=== PATIENT | male | born 1945 | race Caucasian/White ===

== ENCOUNTER 2017-05-11 18:21 | Emergency (ER) | payer OTHER ==
[2017-05-11 18:36] VITALS: BP 177/93; BMI 33.9
--- NOTE | 2017-05-11 19:42 | DR.UPM ---
HPI - Time Seen Time seen: 20:39 - Complaint Chief Complaint Doctors Comments: Patient complains of lower left quadrant pain with nausea and vomiting for the past six hours. States he has been passing blood in his urine and having pain when he urinates that is getting worst. States he had several kidney stones before and they had to send him to [place] to have it removed and to another hospital with the same problem. States goes to the [facility] and does not have a local doctor. He denies chest pain or SOB, fever or chills. Patient denies any recent tauma. States he has not taken anything about pain. - Reviewed Nurses Notes Reviewed: Yes - Source History Provided: Patient - Mode of Arrival Mode of Arrival: Ambulatory - Duration Duration: Constant How lon Duration: Hours Has not urinated for: 30 Min/Hrs: Minutes - Context Onset: Spontaneous Urinary Symptoms: Dysuria, Hematuria History of: Kidney Stone - Severity Pain: Severe Inability to Void: None - Location Pain Location: Left, Flank - Quality Penile Discharge: Clear - Modifying Factors Medications: None - Associated Signs and Symptoms Associated Signs and Symptoms: Nausea, Vomiting, Abdominal Pain, Flank Pain <ARMAND OLMOS - Last Filed: 05/11/17 23:11> - PCP Primary Care Physician: nv - Complaint Chief Complaint:: Patient c/o hematuria with left flank pain. Patient has a history of kidney stones - Source History Provided: Patient - Mode of Arrival Mode of Arrival: Ambulatory - Timing Onset of Chief Complaint: 05/11/17 <JUANY HDZ - Last Filed: 05/15/17 04:50> PMH - PMH Past Medical History: Yes Past Medical History: COPD, Diabetes, Dyslipidemia, Hypertension, NV Past Medical History Comment: kidney stones Past Surgical History: Yes Surgical History: CABG/Valve Surgery - Family History History of Family Medical Conditions: Yes Family Medical History: Diabetes Mellitus, Cancer, NV, Hypertension - Social History Does patient currently use any type of tobacco product: No Have you used tobacco products in the last 12 months: No Type of Tobacco Use: Cigarettes Does any household member use tobacco: No Alcohol Use: None Do you use any recreational Drugs:: No Lives With: Family Lives Where: Home - infectious screening In the last 2 months have you had wt loss of >10#?: NO Have you had fever, night sweats or hemotysis?: No Have you traveled outside the country in the last 6 months?: No Isolation: Standard <JUANY HDZ - Last Filed: 05/15/17 04:50> ROS - Review of Systems Constitutional: No Symptoms Reported. negative: See HPI, Chills, Diaphoresis, Fever, Malaise, Weakness, Irritable, Fatigue, Loss of Appetite, Other Eyes: No Symptoms Reported ENTM: No Symptoms Reported Respiratoy: No Symptoms Reported Cardiovascular: No Symptoms Reported. negative: See HPI, Chest Pain, Edema, Palpitations, Syncope, Cyanosis, Skin Mottling, Other Gastrointestinal/Abdominal: No Symptoms Reported, Abdominal Pain, Nausea, Vomiting Genitourinary: No Symptoms Reported, Dysuria, Hematuria. negative: See HPI, Discharge, Frequency, Pain, Bleeding, Other Neurological: No Symptoms Reported Musculoskeletal: No Symptoms Reported Integumentary: No Symptoms Reported Hematologic/Lymphatic: No Symptoms Reported. negative: See HPI, Anemia, Blood Clots, Easy Bleeding, Easy Bruising, Swollen Glands, Lymphadenopathy, Other Endocrine: No Symptoms Reported. negative: See HPI, Excessive Sweating, Flushing, Intolerance to Cold, Intolerance to Heat, Increased Hunger, Increased Thirst, Increased Urine, Unexplained Weight Gain, Unexplained Weight Loss, Failure to Thrive, Decreased Appetite, Other Psychiatric: No Symptoms Reported. negative: See HPI, Anxiety, Depression, Hallucinations, Excessive crying, Suicidal, Other <NICKOLASARMAND - Last Filed: 05/11/17 23:11> PE - General Limitations: No Limitations General Appearance: Alert, In Distress (moderate) - Head Head Exam: Normal Inspection, Atraumatic, Normocephalic - Eyes Eye exam: Normal Appearance, PERRL, EOMI. negative: Scleral Icterus, Conjunctival Injection, Nystagmus, Miosis, Mydrasis, Periorbital Swelling, Periorbital Tenderness, Other - ENT ENT Exam: Normal Exam, Normal Oropharynx, Normal External Ear Exam, Mucous Membranes Moist, TM's Normal Bilaterally - Neck Neck Exam: Normal Inspection, Full ROM, Trachea Midline. negative: Tenderness, Meningismus, Lymphadenopathy, Thyromegaly, Other - Chest Chest Inspection: Normal Inspection, Symmetric Chest Wall Rise. negative: Tenderness, Rash, Abscess, Other - Respiratory Respiratory Exam: Normal Lung Sounds Bilat Respiratory Exam: Bilateral Clear to Auscultation - Cardiovascular Cardiovascular Exam: Regular Rate, Normal Rhythm, Normal Heart Sounds. negative : Bradycardia, Tachycardia, Irregular Rhythm, Systolic Murmur, Diastolic Murmur , Rubs, Gallop, Clicks, JVD, +S1, +S2, +S3, +S4, Other - Abdominal Exam Abdominal Exam: Normal Inspection, Normal Bowel Sounds, Soft, Tenderness, Guarding Abdominal Tenderness: LLQ, Suprapubic, Moderate - Rectal Rectal Exam: Deferred - Genitourinary Exam: Male: Deferred - Extremities Extremities Exam: Normal Inspection, Full ROM - Back Back Exam: Normal Inspection, Full ROM, (L) CVA Tenderness - Neurologic Neurological Exam: Alert, Oriented X3, CN II-XII Intact, Normal Gait, Reflexes Normal - Psychiatric Psychiatric Exam: Normal Affect, Normal Mood - Skin Skin Exam: Warm, Dry, Intact, Normal Color. negative: Rash, Cyanosis, Diaphoresis, Erythema, Pallor, Mottled, Other <ARMAND OLMOS - Last Filed: 05/11/17 23:11> - Vital Signs Vitals: Temperature 98.7 F Pulse Rate 74 Respiratory Rate 18 Blood Pressure 177/93 O2 Sat by Pulse Oximetry 94 ROR - Labs Reviewed Laboratory Results Reviewed?: Yes (all labs and xray results reviewed and discussed with patient and spouse) Result Diagrams: 05/11/17 20:45 05/11/17 20:45 - XRAY XRAY Interpreted by: Radiologist (CT abdomen and pelvis: [id number] left hydroureteronephrosis. Obstructin stone n the mid left ureter and nonobstructing stone in left lower pole. Diverticulosis ; vascular plaques.) <ARMAND OLMOS - Last Filed: 05/11/17 23:11> - Labs Reviewed Result Diagrams: 05/11/17 20:45 05/11/17 20:45 <JUANY HDZ - Last Filed: 05/15/17 04:50> - Labs Reviewed Laboratory: WBC 9.3 X10^3/uL (3.6-10.0) 05/11/17 20:45 RBC 5.29 X10^6/uL (4.7-6.0) 05/11/17 20:45 Hgb 15.1 g/dL (13.5-18.0) 05/11/17 20:45 Hct 44.8 % (42.0-54.0) 05/11/17 20:45 MCV 84.7 fL (80.0-100.0) 05/11/17 20:45 MCH 28.6 pg (27.0-34.0) 05/11/17 20:45 MCHC 33.8 g/dL (33.0-35.0) 05/11/17 20:45 RDW 14.3 % (11.6-16.5) 05/11/17 20:45 Plt Count 172 X10^3/uL (150.0-450.0) 05/11/17 20:45 MPV 8.7 fL (7.4-11.0) 05/11/17 20:45 Neut % 85.8 % (42.0-75.0) H 05/11/17 20:45 Lymph % 9.8 % (21.0-51.0) L 05/11/17 20:45 [place] % 3.3 % (0.0-13.0) 05/11/17 20:45 Eos % 0.5 % (0.9-2.9) L 05/11/17 20:45 Baso % 0.6 % (0.2-1.0) 05/11/17 20:45 Neut # 7.9 x10^3/uL (2.2-4.8) H 05/11/17 20:45 Lymph # 0.9 X10^3/uL (1.3-2.9) L 05/11/17 20:45 [place] # 0.3 x10^3/uL (0.3-0.8) 05/11/17 20:45 Eos # 0.0 x10^3/uL (0.0-0.2) 05/11/17 20:45 Baso # 0.1 X10^3/uL (0.0-0.1) 05/11/17 20:45 Absolute Nucleated RBC 0.0 /100WBC 05/11/17 20:45 Sodium 140 mmol/L (136-145) 05/11/17 20:45 Corrected Sodium 142 mmol/L (136-145) 05/11/17 20:45 Potassium 4.4 mmol/L (3.5-5.1) 05/11/17 20:45 Chloride 105 mmol/L (98-107) 05/11/17 20:45 Carbon Dioxide 24.7 mmol/L (21-32) 05/11/17 20:45 BUN 18 mg/dL (7-18) 05/11/17 20:45 Creatinine 1.28 mg/dL (0.70-1.30) 05/11/17 20:45 Est GFR (MDRD) Af Amer > 60 (>60) 05/11/17 20:45 Est GFR (MDRD) Non-Af 59 (>60) 05/11/17 20:45 Glucose 173 mg/dL (65-99) H 05/11/17 20:45 Calcium 8.7 mg/dL (8.5-10.1) 05/11/17 20:45 Corrected Calcium TNP 05/11/17 20:45 Total Bilirubin 0.40 mg/dL (0.2-1.0) 05/11/17 20:45 AST 16 Units/L (15-37) 05/11/17 20:45 ALT 29 Units/L (12-78) 05/11/17 20:45 Alkaline Phosphatase 91 Units/L (46-116) 05/11/17 20:45 Total Protein 7.0 g/dL (6.4-8.2) 05/11/17 20:45 Albumin 3.8 g/dL (3.4-5.0) 05/11/17 20:45 Globulin 3.2 g/dL (2.5-4.5) 05/11/17 20:45 Albumin/Globulin Ratio 1.2 Ratio (1.1-2.1) 05/11/17 20:45 Amylase 45 Units/L (25-115) 05/11/17 20:45 Lipase 101 Units/L (73-393) 05/11/17 20:45 Specimen Type Clean catch urine 05/11/17 19:57 Urine Color [place] (YELLOW) 05/11/17 19:57 Urine Appearance Cloudy (CLEAR) 05/11/17 19:57 Urine pH 7.0 (5.0 - 8.0) 05/11/17 19:57 Ur Specific [place] 1.010 (1.000-1.030) 05/11/17 19:57 Urine Protein 2+ (NEGATIVE) 05/11/17 19:57 Urine Glucose (UA) 2+ (NEGATIVE) 05/11/17 19:57 Urine Ketones Negative (NEGATIVE) 05/11/17 19:57 Urine Occult Blood 5+ (NEGATIVE) 05/11/17 19:57 Urine Nitrite Negative (NEGATIVE) 05/11/17 19:57 Urine Bilirubin Negative (NEGATIVE) 05/11/17 19:57 Urine Urobilinogen Normal (NORMAL) 05/11/17 19:57 Ur Leukocyte Esterase 1+ (NEGATIVE) 05/11/17 19:57 Urine RBC Tntc /HPF (NEGATIVE) 05/11/17 19:57 Urine WBC 0 - 3 /HPF (NEGATIVE) 05/11/17 19:57 Ur Squamous Epith Cells Rare /HPF (NEGATIVE) 05/11/17 19:57 Amorphous Sediment Trace /HPF (NEGATIVE) 05/11/17 19:57 Urine Bacteria Negative /HPF (NEGATIVE) 05/11/17 19:57 Ur Culture Indicated? No/not indicated 05/11/17 19:57 <ARMAND OLMOS - Last Filed: 05/11/17 23:11> <JUANY HDZ - Last Filed: 05/15/17 04:50> - Diagnosis Discharge Problem: Left nephrolithiasis, Hydroureteronephrosis Abdominal pain Qualifiers: Abdominal location: left lower quadrant Qualified Code(s): R10.32 - Left lower quadrant pain Diabetes mellitus Qualifiers: Diabetes mellitus type: type 2 - Discharge Plan Disposition: HOME, SELF-CARE Condition: Stable Prescriptions: Ketorolac Tromethamine [Toradol Tab] 10 mg PO Q8H PRN #12 tab PRN Reason: Pain Tamsulosin HCl [Flomax] 0.4 mg PO DAILY #14 cap - Follow ups/Referrals Follow ups/Referrals: NFD,None [Primary Care Provider] - 3 days SAIDA ARDON [CONSULTING PHYSICIAN] - 3 days Mathew Cordero [STAFF PHYSICIAN] - 3 days - Instructions Instructions: Renal Colic, Qwzz-el-Hotz, Kidney Stones, Swfs-qu-Fymh, Dietary Guidelines to Help Prevent Kidney Stones, Type 2 Diabetes Mellitus, Adult, Easy- to-Read
[2017-05-11 20:08] LABS: BILIRUBIN,URINE NEGATIVE (NEGATIVE); BLOOD/HEMOGLOBIN,URINE 5+ (NEGATIVE); GLUCOSE, URINE 2+ (NEGATIVE); KETONES,URINE NEGATIVE (NEGATIVE); LEUKOCYTE ESTERASE ,URINE 1+ (NEGATIVE); NITRITES,URINE NEGATIVE (NEGATIVE); PROTEIN,URINE 2+ (NEGATIVE); UROBILINOGEN,URINE NORMAL (NORMAL)
[2017-05-11 20:25] LABS: APPEARANCE,URINE CLOUDY (CLEAR); COLOR,URINE PINK (YELLOW); RBC,URINE TNTC /HPF (NEGATIVE)
[2017-05-11 20:26] LABS: AMORPHOUS SEDIMENT,UR TRACE /HPF (NEGATIVE); BACTERIA,URINE NEGATIVE /HPF (NEGATIVE); SQUAMOUS EPITHELIAL CELL,UR RARE /HPF (NEGATIVE)
[2017-05-11] MEDS ORDERED: TORADOL 30 MG VIAL IVP STA (20:38)
[2017-05-11] MEDS ORDERED: ZOFRAN INJ 4 MG VIAL IVP ONE (20:38)
[2017-05-11] MEDS ORDERED: ZOFRAN INJ 4 MG VIAL ONE (20:55)
[2017-05-11] MEDS ORDERED: TORADOL 30 MG VIAL ONE (20:55)
[2017-05-11 20:58] LABS: BASOPHILS # (AUTO) 0.1 X10^3/uL (0.0-0.1); BASOPHILS % (AUTO) 0.6 % (0.2-1.0); EOSINOPHILS % (AUTO) 0.5 % (0.9-2.9); HEMATOCRIT 44.8 % (42.0-54.0); HEMOGLOBIN 15.1 g/dL (13.5-18.0); LYMPHOCYTES # (AUTO) 0.9 X10^3/uL (1.3-2.9); LYMPHOCYTES % (AUTO) 9.8 % (21.0-51.0); MEAN CORPUSCULAR HEMOGLOBIN 28.6 pg (27.0-34.0); MEAN CORPUSCULAR HGB CONC 33.8 g/dL (33.0-35.0); MEAN CORPUSCULAR VOLUME 84.7 fL (80.0-100.0); MEAN PLATELET VOLUME 8.7 fL (7.4-11.0); MONOCYTES # (AUTO) 0.3 x10^3/uL (0.3-0.8); MONOCYTES % (AUTO) 3.3 % (0.0-13.0); NEUTROPHILS # (AUTO) 7.9 x10^3/uL (2.2-4.8); NEUTROPHILS % (AUTO) 85.8 % (42.0-75.0); PLATELET COUNT 172 X10^3/uL (150.0-450.0); RED BLOOD COUNT 5.29 X10^6/uL (4.7-6.0); RED CELL DISTRIBUTION WIDTH 14.3 % (11.6-16.5); WHITE BLOOD COUNT 9.3 X10^3/uL (3.6-10.0)
[2017-05-11 21:06] LABS: ALANINE AMINOTRANSFERASE 29 Units/L (12-78); ALBUMIN 3.8 g/dL (3.4-5.0); ALKALINE PHOSPHATASE 91 Units/L (46-116); AMYLASE 45 Units/L (25-115); ASPARTATE AMINO TRANSFERASE 16 Units/L (15-37); BLOOD UREA NITROGEN 18 mg/dL (7-18); CALCIUM 8.7 mg/dL (8.5-10.1); CARBON DIOXIDE 24.7 mmol/L (21-32); CHLORIDE 105 mmol/L (98-107); COR NA(FOR HYPERGLY) 142 mmol/L (136-145); CREATININE 1.28 mg/dL (0.70-1.30); LIPASE 101 Units/L (73-393); SODIUM 140 mmol/L (136-145); eGFR BLACK RACES > 60 (>60); eGFR NON BLACK RACES 59 (>60)
--- NOTE | 2017-05-11 21:18 | CT ---
CT abdomen and pelvis without contrast Indication: Hematuria and left flank pain Technique: Helical images through the abdomen and pelvis without contrast. Coronal and sagittal refor mats provided. Comparison: No prior studies available. Findings: Limited images through the lower chest demonstrates no acute abnormality. Review of bone wi ndows shows no destructive osseous lesion. 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 Abdomen: The liver, gallbladder, spleen, adrenal glands, pancreas, stomach and small bowel show no ac zuni abnormality. The appendix is normal. Noninflamed diverticula of the left colon noted. Vascular pl aque noted in the aorta and branch vessels. The right kidney is normal without hydroureteronephrosis. The left kidney shows nonobstructing 1-2 mL left lower pole stone. There is cwvj-aq-xbsgbwkd left hyd roureteronephrosis with obstructing stone in the left ureter at the mid ureter on axial image 54 vanessa uring 3 mm. Pelvis: The urinary bladder and rectum are normal. Fat containing right inguinal hernia noted. Hip ar throplasty hardware obscures detail in the pelvis. Prostate gland shows no gross abnormality with art ifact obscuring detail. Impression: 1. Asld-ov-drrpnzdz left hydroureteronephrosis. Obstructing stone in the mid left ureter and nonobstr ucting stone in the left lower pole. 2. Vascular plaque, diverticulosis and other findings as above. Reported By:
== END 2017-05-11 23:34 | disposition home or self-care (01) ==
LOC: ER 18:31
DX: N20.0 Calculus of kidney (principal); N13.39 Other hydronephrosis; R10.32 Left lower quadrant pain; K57.90 Diverticulosis of intestine, part unspecified, without perforation or abscess without bleeding
CPT/HCPCS: 36415; 74176; 80053; 81001; 82150; 83690; 85025; 96365; 96367; 96374; 96375; 99283; A4216; A4222; J1885; J2405

== ENCOUNTER 2021-10-10 10:36 | Observation (INO) ==
--- NOTE | 2021-10-10 10:54 | DR.ABDMALE ---
HPI Time seen Time Seen by Provider: 10/10/21 10:51 PCP Primary Care Physician: RAFI HPI comment HPI Comment: PATIENT IS 76YR OLD MALE IN ER [facility] WITH INTERMITTENT SHARP UPPER ABDOMINAL PAIN THAT IS INTERMITTENT. PAIN 8/10 AND RADIATES TO CRISTOPHER SIDES OF THE ABDOMEN. PATIENT IS NAUSEATED BUT NO VOMITING OR DIARRHEA. NO FEVER OR DYSURIA. STARTED 5 DAYS AGO. Complaint Chief Complaint Doctors Comments: UPPER ABDOMINAL PAIN AND DISTENSION TIMES 5 DAYS, PAIN OFF AND ON. Chief Complaint:: PT BROUGHT IN BY [facility] PT C/O WAS ABD PAIN AND SWELLING THAT HE NOTICED THAT STARTED ON THE October. PT STATES HE HAS A ANEURYSM FOR A YEAR NOW THAT THEY HAVE BEEN WATCHING. PT STATES THE PAIN COMES AND GOES AND IT IS AT THE TOP UPPER QUAD AND BOTH SIDES OF HIS ABD. COVID-19 Coronavirus risk:travel/contact w/high risk person: No Has patient experienced Coronavirus symptoms: No Reviewed Nurses Notes Review: Yes Mode of arrival Mode of Arrival: Stretcher Timing Onset of Chief Complaint: 10/05/21 Came on: Suddenly Duration Duration: Intermittent Duration: Days Location Location: RUQ, LUQ and Epigastric Severity Severity: Severe Quality Quality: Sharp Context Onset: Suddenly Modifying factors Worsening Factors: Movement Improving Factors: Lying Still Associated signs and symptoms Associated Signs and Symptoms: Nausea and Vaginal Bleeding Other history Other History: HTN, CAD, DM. PMH PMH Past Medical History: Yes Past Medical History: Anxiety, Coronary Artery Disease, Diabetes and Hype rtension Past Medical History Comment: ANEURYSM Past Surgical History: Yes Surgical History: CABG/Valve Surgery and Ortho Surgery Family History History of Family Medical Conditions: Yes Family Medical History: Diabetes Mellitus and Hypertension Social History Does patient currently use any type of tobacco product: No Have you used tobacco products in the last 12 months: No Type of Tobacco Use: None Does any household member use tobacco: No Alcohol Use: None Do you use any recreational Drugs:: No Lives With: Spouse Lives Where: Home Travel Risk Coronavirus risk:travel/contact w/high risk person: No Has patient experienced Coronavirus symptoms: No Infectious screening In the last 2 months have you had wt loss of >10#?: NO Have you had fever, night sweats or hemotysis?: No Have you traveled outside the country in the last 6 months?: No Isolation: Standard ROS Review of Systems Constitutional: See HPI, Weakness and Fatigue; negative Fever Eyes: No Symptoms Reported and See HPI ENTM: No Symptoms Reported and See HPI; negative Nose Discharge and Nose Congestion Respiratoy: No Symptoms Reported and See HPI; negative Moist Cough, Short of Breath and Wheezing Cardiovascular: No Symptoms Reported and See HPI; negative Chest Pain Gastrointestinal/Abdominal: See HPI, Abdominal Pain and Nausea; negative Diarrhea and Vomiting Genitourinary: No Symptoms Reported and See HPI; negative Dysuria and Hematuria Neurological: See HPI and Weakness; negative Headache and Dizziness Musculoskeletal: No Symptoms Reported and See HPI; negative Back Pain Integumentary: No Symptoms Reported Hematologic/Lymphatic: No Symptoms Reported and See HPI Endocrine: No Symptoms Reported Psychiatric: No Symptoms Reported and See HPI All Other Systems: Reviewed and Negative PE Vital Signs Vital Signs: Temp Pulse Resp BP BP Pulse Ox 10/10/21 11:36 140/83 10/10/21 10:39 98.0 F 77 20 186/90 98 01/04/20 19:31 130/72 General Limitations: No Limitations General Appearance: Alert and In No Apparent Distress Head Head Exam: Normal Inspection Eyes Eye exam: Normal Appearance; negative Scleral Icterus and Conjunctival Injection ENT ENT Exam: Normal Exam, Normal Oropharynx, Normal External Ear Exam and TM's Normal Bilaterally Neck Neck Exam: Normal Inspection and Trachea Midline; negative Tenderness Chest Chest Inspection: Normal Inspection and Symmetric Chest Wall Rise; negative Tenderness Respiratory Respiratory Exam: Normal Lung Sounds Bilat; negative Accessory Muscle Use, Chest Wall Tenderness and Respiratory Distress Respiratory Exam: Bilateral: Clear to Auscultation and Bilateral: Rhonchi Cardiovascular Cardiovascular Exam: Regular Rate, Normal Rhythm and Normal Heart Sounds; negative Systolic Murmur and Diastolic Murmur Abdominal Exam Abdominal Exam: Normal Bowel Sounds, Soft and Tenderness Abdominal Tenderness: RUQ, LUQ and Epigastrium Rectal Rectal Exam: Deferred Back Back Exam: Normal Inspection; negative (R) CVA Tenderness and (L) CVA Tenderness Extremeties Extremities Exam: Normal Inspection and Normal Capillary Refill Exam: Male: Deferred Neurologic Neurological Exam: Alert and Oriented X3; negative Motor Sensory Deficit Psychiatric Psychiatric Exam: Normal Affect and Normal Mood Skin Skin Exam: Warm, Dry, Intact and Normal Color MDM Additional Information Obtained From Additional information provided by: Old Records Differential Diagnosis Differential Diagnosis: Bowel Obstruction, Cholcystitis, Cholelethiasis, Constipation, Gastritus/PUD, Inflammatory BD, Pancreatitis, Urinary tract in fection and Urolithiasis COURSE Treatment Treatment: SEE ORDERS DONE WHILE PATIENT WAS IN ER. Consultation Consultation Comments: DISCUSSED PATIENT DR. MUÑOZ. HE WILL ADMIT PATIENT. Education/Counseling Education/Counseling: Patient Educated On: Diagnosis ROR Labs Reviewed Laboratory Results Reviewed?: Yes Result Diagrams: 10/13/21 04:10 10/13/21 04:10 Laboratory: WBC 4.3 X10^3/uL (3.6-10.0) 10/10/21 11:33 RBC 5.05 X10^6/uL (4.7-6.0) 10/10/21 11:33 Hgb 14.1 g/dL (13.5-18.0) 10/10/21 11:33 Hct 41.8 % (42.0-54.0) L 10/10/21 11:33 MCV 82.7 fL (80.0-100.0) 10/10/21 11:33 MCH 27.8 pg (27.0-34.0) 10/10/21 11:33 MCHC 33.6 g/dL (33.0-35.0) 10/10/21 11:33 RDW 16.3 % (11.6-16.5) 10/10/21 11:33 Plt Count 166 X10^3/uL (150.0-450.0) 10/10/21 11:33 MPV 6.8 fL (7.4-11.0) L 10/10/21 11:33 Neut % (Auto) 57.1 % (42.0-75.0) 10/10/21 11:33 Lymph % (Auto) 29.7 % (21.0-51.0) 10/10/21 11:33 [place] % (Auto) 8.3 % (0.0-13.0) 10/10/21 11:33 Eos % (Auto) 4.5 % (0.9-2.9) H 10/10/21 11:33 Baso % (Auto) 0.4 % (0.2-1.0) 10/10/21 11:33 Neut # (Auto) 2.5 x10^3/uL (2.2-4.8) 10/10/21 11:33 Lymph # (Auto) 1.3 X10^3/uL (1.3-2.9) 10/10/21 11:33 [place] # (Auto) 0.4 x10^3/uL (0.3-0.8) 10/10/21 11:33 Eos # (Auto) 0.2 x10^3/uL (0.0-0.2) 10/10/21 11:33 Baso # (Auto) 0.0 X10^3/uL (0.0-0.1) 10/10/21 11:33 Absolute Nucleated RBC 0.2 /100WBC 10/10/21 11:33 Sodium 140 mmol/L (136-145) 10/10/21 11:33 Corrected Sodium 141 mmol/L (136-145) 10/10/21 11:33 Potassium 4.4 mmol/L (3.5-5.1) 10/10/21 11:33 Chloride 104 mmol/L (98-107) 10/10/21 11:33 Carbon Dioxide 30.2 mmol/L (21-32) 10/10/21 11:33 BUN 16 mg/dL (7-18) 10/10/21 11:33 Creatinine 1.47 mg/dL (0.70-1.30) H 10/10/21 11:33 Est GFR (MDRD) Af Amer 60 (>60) 10/10/21 11:33 Est GFR (MDRD) Non-Af 50 (>60) L 10/10/21 11:33 Glucose 144 mg/dL (65-99) H 10/10/21 11:33 Calcium 9.1 mg/dL (8.5-10.1) 10/10/21 11:33 Corrected Calcium TNP 10/10/21 11:33 Total Bilirubin 0.70 mg/dL (0.2-1.0) 10/10/21 11:33 AST 18 Units/L (15-37) 10/10/21 11:33 ALT 19 Units/L (12-78) 10/10/21 11:33 Alkaline Phosphatase 81 Units/L (46-116) 10/10/21 11:33 Creatine Kinase 195 Units/L (39-308) 10/10/21 11:33 CK-MB (CK-2) 2.2 ng/mL (0-4.0) 10/10/21 11:33 CK/CKMB % Calc 1.1 % (<4) 10/10/21 11:33 Troponin I High Sens 9.7 ng/L (4.0-60.0) 10/10/21 11:33 Total Protein 6.9 g/dL (6.4-8.2) 10/10/21 11:33 Albumin 3.7 g/dL (3.4-5.0) 10/10/21 11:33 Globulin 3.2 g/dL (2.5-4.5) 10/10/21 11:33 Albumin/Globulin Ratio 1.2 Ratio (1.1-2.1) 10/10/21 11:33 Amylase 45 Units/L (25-115) 10/10/21 11:33 Lipase 62 Units/L (73-393) L 10/10/21 11:33 Specimen Type Random urine 10/10/21 12:13 Urine Color Yellow (YELLOW) 10/10/21 12:13 Urine Appearance Clear (CLEAR) 10/10/21 12:13 Urine pH 7.0 (5.0 - 8.0) 10/10/21 12:13 Ur Specific [place] 1.010 (1.000-1.030) 10/10/21 12:13 Urine Protein Negative (NEGATIVE) 10/10/21 12:13 Urine Glucose (UA) 4+ (NEGATIVE) 10/10/21 12:13 Urine Ketones Negative (NEGATIVE) 10/10/21 12:13 Urine Blood Negative (NEGATIVE) 10/10/21 12:13 Urine Nitrite Negative (NEGATIVE) 10/10/21 12:13 Urine Bilirubin Negative (NEGATIVE) 10/10/21 12:13 Urine Urobilinogen Normal (NORMAL) 10/10/21 12:13 Ur Leukocyte Esterase Negative (NEGATIVE) 10/10/21 12:13 XRAY XRAY Interpreted by: Radiologist (REP[PORT) and Self EKG Rate: 71 [place]: LAD Rhythm: NSR Block: 1 Hypertrophy: None ST: Old, Inf, Ant, Infarct and Nonsp Opioid Opioid Risk Tool Age (Naeem box if 16-45): No History of Preadolescent Sexual Abuse: No Total: 0 Total Score Risk Category: Low Risk Copyright: Fernando ASKEW predicting aberrant behaviors Diagnosis Discharge Problem: Pancreatic cyst Abdominal pain Qualifiers: Abdominal location: upper abdomen, unspecified Qualified Code(s): R10.10 - Upper abdominal pain, unspecified Instructions Instructions: Cellulitis, Adult Edema Flank Pain, Adult, Agbg-yw-[id number] Acute Pancreatitis, Zqyg-ix-Gtin Abdominal Pain, Adult, Nidk-ym-Mraz Pancreatitis Eating Plan Flank Pain, Adult Edema, Qjsr-[id number]-Eaqz Acute Pancreatitis Forms: Excuse From Work or School Precautions for COVID19 [facility] Social Distancing
[2021-10-10 11:42] LABS: BASOPHILS % (AUTO) 0.4 % (0.2-1.0); EOSINOPHILS # (AUTO) 0.2 x10^3/uL (0.0-0.2); EOSINOPHILS % (AUTO) 4.5 % (0.9-2.9); HEMATOCRIT 41.8 % (42.0-54.0); HEMOGLOBIN 14.1 g/dL (13.5-18.0); LYMPHOCYTES # (AUTO) 1.3 X10^3/uL (1.3-2.9); LYMPHOCYTES % (AUTO) 29.7 % (21.0-51.0); MEAN CORPUSCULAR HEMOGLOBIN 27.8 pg (27.0-34.0); MEAN CORPUSCULAR HGB CONC 33.6 g/dL (33.0-35.0); MEAN CORPUSCULAR VOLUME 82.7 fL (80.0-100.0); MEAN PLATELET VOLUME 6.8 fL (7.4-11.0); MONOCYTES # (AUTO) 0.4 x10^3/uL (0.3-0.8); MONOCYTES % (AUTO) 8.3 % (0.0-13.0); NEUTROPHILS # (AUTO) 2.5 x10^3/uL (2.2-4.8); NEUTROPHILS % (AUTO) 57.1 % (42.0-75.0); RED BLOOD COUNT 5.05 X10^6/uL (4.7-6.0); RED CELL DISTRIBUTION WIDTH 16.3 % (11.6-16.5); WHITE BLOOD COUNT 4.3 X10^3/uL (3.6-10.0)
[2021-10-10 11:53] LABS: BLOOD UREA NITROGEN 16 mg/dL (7-18); CALCIUM 9.1 mg/dL (8.5-10.1); CARBON DIOXIDE 30.2 mmol/L (21-32); CHLORIDE 104 mmol/L (98-107); COR NA(FOR HYPERGLY) 141 mmol/L (136-145); CREATININE 1.47 mg/dL (0.70-1.30); SODIUM 140 mmol/L (136-145); eGFR NON BLACK RACES 50 (>60)
[2021-10-10 12:10] LABS: AMYLASE 45 Units/L (25-115); CKMB % 1.1 % (<4); CREATINE KINASE 195 Units/L (39-308); CREATINE KINASE MB 2.2 ng/mL (0-4.0); LIPASE 62 Units/L (73-393)
[2021-10-10 12:32] LABS: BILIRUBIN,URINE NEGATIVE (NEGATIVE); BLOOD/HEMOGLOBIN,URINE NEGATIVE (NEGATIVE); GLUCOSE, URINE 4+ (NEGATIVE); KETONES,URINE NEGATIVE (NEGATIVE); LEUKOCYTE ESTERASE ,URINE NEGATIVE (NEGATIVE); NITRITES,URINE NEGATIVE (NEGATIVE); PROTEIN,URINE NEGATIVE (NEGATIVE); UROBILINOGEN,URINE NORMAL (NORMAL)
[2021-10-10 12:33] LABS: APPEARANCE,URINE CLEAR (CLEAR); COLOR,URINE YELLOW (YELLOW)
--- NOTE | 2021-10-10 12:58 | CT ---
HISTORYABDOMINAL PAIN,SWELLING, HX. AORTIC ANEURYSMSTUDYABDOMEN/PELVIS WITH CONCOMPARISONNone available.TECHNIQUEMultiple axial images of the abdomen and pelvis were obtained from the lung bases to the pubic symphysis after the administration of IV contrast. Dose reduction techniques including Automated Exposure Control (AEC) and adjustment of mA and kV were utilized.FINDINGSThere are few scattered less than 4 mm pulmonary nodules in the lung bases with mild scattered subsegmental atelectasis. The heart is normal in size. The liver, gallbladder, and adrenal glands have a benign noncontrast appearance. 8 mm fluid attenuation lesion inferior splenic pole image 45 series 6. This may represent a cyst and appears benign. There are multiple cystic pancreatic/peripancreatic lesions. For example of the dorsal margin of the pancreatic neck there is a 3.3 x 2.9 cm near fluid attenuation lesion image 27 series 4. The kidneys appear benign. Subcentimeter calcifications at bilateral renal pelves are favored to be vascular. Streak artifact limits evaluation the pelvis. Urinary bladder appears benign within limits the study. Prostate is not well visualized. Diverticulosis of the colon without evidence of diverticulitis. The appendix appears normal. Negative for bowel obstruction. Small fat containing right inguinal hernia. Moderately atherosclerotic normal caliber abdominal aorta. The portal vein is patent. 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 No pathologic adenopathy. No free air, free fluid or collection. There is grade 2 anterolisthesis of L5-S1 with a right-sided pars defect. There is mild retrolisthesis of L4-5. Severe L5-S1 degenerative disc disease. Mild scoliosis.IMPRESSIONMultiple cystic pancreatic/peripancreatic lesions. Recommend MRI with and without contrast with MR CP for further evaluation. Differential includes cystic pancreatic neoplasm (such as IPMN, serous cystadenoma or mucinous cystic neoplasm) versus pseudocysts in the setting of chronic pancreatitis.Grade 2 anterolisthesis of L5-S1 with severe degenerative disc disease.Moderately atherosclerotic normal caliber abdominal aorta.Electronically signed by: Wade Bergeron (October 10, 2021 12:56:29)
[2021-10-10] MEDS ORDERED: ZOFRAN INJ 4 MG VIAL IVP PRN (17:15)
[2021-10-10] MEDS: PEPCID 20 MG VIAL 20 MG in NS 50 ML IV 50 ML IV SCH ×2 (17:44→21:05)
[2021-10-10] MEDS: NS 1,000 ML IV 1,000 ML IV SCH (17:44)
[2021-10-10 20:10] LABS: BILIRUBIN,URINE NEGATIVE (NEGATIVE); BLOOD/HEMOGLOBIN,URINE NEGATIVE (NEGATIVE); GLUCOSE, URINE 4+ (NEGATIVE); KETONES,URINE NEGATIVE (NEGATIVE); LEUKOCYTE ESTERASE ,URINE NEGATIVE (NEGATIVE); NITRITES,URINE NEGATIVE (NEGATIVE); PROTEIN,URINE NEGATIVE (NEGATIVE); UROBILINOGEN,URINE NORMAL (NORMAL)
[2021-10-10 20:12] LABS: APPEARANCE,URINE CLEAR (CLEAR); COLOR,URINE PALE YELLOW (YELLOW)
[2021-10-10] MEDS ORDERED: DULOXETINE PO SCH (21:00)
[2021-10-10] MEDS ORDERED: MIRABEGRON 25 MG PO SCH (21:00)
[2021-10-10] MEDS: COREG TAB 12.5 MG PO SCH (21:01)
[2021-10-10] MEDS: LIPITOR TAB 20 MG PO SCH (21:02)
[2021-10-10] MEDS: DETROL LA 2 MG CAP EXT REL PO SCH (21:02)
[2021-10-10] MEDS: CYMBALTA PO SCH (21:02)
[2021-10-10] MEDS: PLETAL PO SCH (21:03)
[2021-10-10] MEDS: EMPAGLIFLOZIN 10 MG PO SCH (21:58)
[2021-10-11] MEDS: PEPCID 20 MG VIAL 20 MG in NS 50 ML IV 50 ML IV SCH ×3 (01:05→20:38)
[2021-10-11] MEDS: NS 1,000 ML IV 1,000 ML IV SCH ×3 (02:19→23:15)
[2021-10-11 05:18] LABS: BASOPHILS % (AUTO) 0.5 % (0.2-1.0); EOSINOPHILS # (AUTO) 0.2 x10^3/uL (0.0-0.2); EOSINOPHILS % (AUTO) 5.1 % (0.9-2.9); HEMATOCRIT 41.7 % (42.0-54.0); HEMOGLOBIN 14.4 g/dL (13.5-18.0); LYMPHOCYTES # (AUTO) 1.2 X10^3/uL (1.3-2.9); LYMPHOCYTES % (AUTO) 27.3 % (21.0-51.0); MEAN CORPUSCULAR HEMOGLOBIN 28.3 pg (27.0-34.0); MEAN CORPUSCULAR HGB CONC 34.5 g/dL (33.0-35.0); MEAN PLATELET VOLUME 6.9 fL (7.4-11.0); MONOCYTES # (AUTO) 0.4 x10^3/uL (0.3-0.8); NEUTROPHILS # (AUTO) 2.6 x10^3/uL (2.2-4.8); NEUTROPHILS % (AUTO) 59.1 % (42.0-75.0); RED BLOOD COUNT 5.08 X10^6/uL (4.7-6.0); RED CELL DISTRIBUTION WIDTH 15.7 % (11.6-16.5); WHITE BLOOD COUNT 4.4 X10^3/uL (3.6-10.0)
[2021-10-11 05:19] LABS: BLOOD UREA NITROGEN 16 mg/dL (7-18); CHLORIDE 104 mmol/L (98-107); COR NA(FOR HYPERGLY) 142 mmol/L (136-145); CREATININE 1.37 mg/dL (0.70-1.30); SODIUM 141 mmol/L (136-145); eGFR NON BLACK RACES 54 (>60)
[2021-10-11 05:23] LABS: AMYLASE 56 Units/L (25-115); LIPASE 59 Units/L (73-393)
[2021-10-11 08:43] VITALS: BMI 34.4
[2021-10-11] MEDS ORDERED: PANTOPRAZOLE 20 MG PO SCH (09:00)
[2021-10-11] MEDS ORDERED: CYANOCOBALAMIN PO SCH (09:00)
[2021-10-11] MEDS ORDERED: CILOSTAZOL 50 MG PO SCH (09:00)
[2021-10-11] MEDS ORDERED: NS 100 ML IV 100 ML ONE (09:10)
[2021-10-11] MEDS ORDERED: GLUCOPHAGE ONE (09:14)
[2021-10-11] MEDS: NIACINAMIDE 500 MG PO SCH (10:20)
[2021-10-11] MEDS: GLUCOPHAGE PO SCH (10:58)
--- NOTE | 2021-10-11 11:10 | MRI ---
MRI ABDOMEN W/WO CONTRASTClinical indication: PANCREATIC CYSTProcedure: Multiplanar multi sequence MRI of the abdomen were obtained with and without the administration of intravenous contrast according to standard departmental protocol.Contrast: 20 cc of MultiHanceComparisons:CT October 10, 2021Findings:MRI of the abdomen without contrast: No significant iron or fat deposition in the liver or spleen. No significant ascites.MRI of the abdomen with contrast: Liver and spleen are normal in size and morphology. No focal lesions. Gallbladder is present. No gallstones. No filling defects within the common bile duct. No ductal dilatation. Intrinsically decreased T1 signal of the pancreas. Numerous (greater than 20) a cystic structures throughout the visualized pancreas. The largest is in the pancreatic body measuring 3.5 x 3.3 cm on series 801, image 22. No convincing enhancement of this lesion or other lesions. Main duct communication not convincingly demonstrated largely secondary to significant motion artifact. The main pancreatic duct, where seen, does not appear to be particularly dilated adrenal glands are normal. Kidneys demonstrate normal cortical medullary differentiation. No hydronephrosis. No suspicious lymph nodes. Multiple simple renal cysts bilaterally.Impression:1.Numerous pancreatic cystic lesions that are favored to represent either multiple side branch IPMN ends or possibly sequela of chronic pancreatitis if this is consistent with patient's history. ACR guidelines recommend imaging in 6 months. Additional imaging could be performed according to the following guidelines:[email or web address].[email or web address]/[email or web address] Electronically signed by: ELVIS ZIEGLER (October 11, 2021 11:08:02)
[2021-10-11] MEDS: COZAAR PO SCH (11:18)
[2021-10-11] MEDS: COREG TAB 12.5 MG PO SCH ×2 (11:18→20:28)
[2021-10-11] MEDS: PLETAL PO SCH ×2 (11:19→20:43)
[2021-10-11] MEDS: NORVASC TAB 5 MG PO SCH (11:19)
[2021-10-11] MEDS: PROTONIX TAB 40 MG PO SCH (11:19)
[2021-10-11] MEDS: LASIX PO SCH (11:19)
[2021-10-11] MEDS: MORPHINE SULFATE INJ 2 MG INJ IVP PRN ×2 (11:20→22:10)
[2021-10-11] MEDS: LIPITOR TAB 20 MG PO SCH (20:28)
[2021-10-11] MEDS: DETROL LA 2 MG CAP EXT REL PO SCH (20:28)
[2021-10-11] MEDS: CYMBALTA PO SCH (20:28)
[2021-10-11] MEDS: EMPAGLIFLOZIN 10 MG PO SCH (20:36)
[2021-10-11 21:17] LABS: ALANINE AMINOTRANSFERASE 19 Units/L (12-78); ALBUMIN 3.8 g/dL (3.4-5.0); ALKALINE PHOSPHATASE 86 Units/L (46-116); ASPARTATE AMINO TRANSFERASE 20 Units/L (15-37)
[2021-10-11 22:14] LABS: ALANINE AMINOTRANSFERASE 19 Units/L (12-78); ALBUMIN 3.7 g/dL (3.4-5.0); ALKALINE PHOSPHATASE 81 Units/L (46-116); ASPARTATE AMINO TRANSFERASE 18 Units/L (15-37); TOTAL PROTEIN 6.9 g/dL (6.4-8.2)
[2021-10-12 07:29] LABS: BASOPHILS % (AUTO) 0.4 % (0.2-1.0); EOSINOPHILS # (AUTO) 0.2 x10^3/uL (0.0-0.2); EOSINOPHILS % (AUTO) 4.6 % (0.9-2.9); HEMATOCRIT 42.8 % (42.0-54.0); HEMOGLOBIN 14.4 g/dL (13.5-18.0); LYMPHOCYTES # (AUTO) 1.2 X10^3/uL (1.3-2.9); LYMPHOCYTES % (AUTO) 27.6 % (21.0-51.0); MEAN CORPUSCULAR HEMOGLOBIN 27.6 pg (27.0-34.0); MEAN CORPUSCULAR HGB CONC 33.7 g/dL (33.0-35.0); MEAN CORPUSCULAR VOLUME 82.1 fL (80.0-100.0); MEAN PLATELET VOLUME 7.1 fL (7.4-11.0); MONOCYTES # (AUTO) 0.3 x10^3/uL (0.3-0.8); MONOCYTES % (AUTO) 7.8 % (0.0-13.0); NEUTROPHILS # (AUTO) 2.6 x10^3/uL (2.2-4.8); NEUTROPHILS % (AUTO) 59.6 % (42.0-75.0); RED BLOOD COUNT 5.22 X10^6/uL (4.7-6.0); RED CELL DISTRIBUTION WIDTH 16.1 % (11.6-16.5); WHITE BLOOD COUNT 4.3 X10^3/uL (3.6-10.0)
[2021-10-12 07:44] LABS: ALANINE AMINOTRANSFERASE 18 Units/L (12-78); ALBUMIN 3.6 g/dL (3.4-5.0); ALKALINE PHOSPHATASE 87 Units/L (46-116); ASPARTATE AMINO TRANSFERASE 18 Units/L (15-37); BLOOD UREA NITROGEN 15 mg/dL (7-18); CALCIUM 8.9 mg/dL (8.5-10.1); CARBON DIOXIDE 29.3 mmol/L (21-32); CHLORIDE 105 mmol/L (98-107); COR NA(FOR HYPERGLY) 142 mmol/L (136-145); CREATININE 1.33 mg/dL (0.70-1.30); SODIUM 141 mmol/L (136-145); TOTAL PROTEIN 6.9 g/dL (6.4-8.2); eGFR NON BLACK RACES 56 (>60)
[2021-10-12] MEDS: COREG TAB 12.5 MG PO SCH ×2 (09:05→20:00)
[2021-10-12] MEDS: COZAAR PO SCH (09:05)
[2021-10-12] MEDS: CYANOCOBALAMIN PO SCH (09:06)
[2021-10-12] MEDS: NORVASC TAB 5 MG PO SCH (09:06)
[2021-10-12] MEDS: NIACINAMIDE 500 MG PO SCH (09:06)
[2021-10-12] MEDS: LASIX PO SCH (09:06)
[2021-10-12] MEDS: PROTONIX TAB 40 MG PO SCH (09:07)
[2021-10-12] MEDS: PEPCID 20 MG VIAL 20 MG in NS 50 ML IV 50 ML IV SCH ×2 (09:07→20:00)
[2021-10-12] MEDS: PLETAL PO SCH ×2 (09:07→20:00)
[2021-10-12] MEDS: NS 1,000 ML IV 1,000 ML IV SCH ×2 (09:15→20:37)
[2021-10-12] MEDS: EMPAGLIFLOZIN 10 MG PO SCH (09:49)
--- NOTE | 2021-10-12 18:10 | DR.H&P ---
H&P - History & Physical for Day of: H&P Date: 10/10/21 - Chief Complaint Chief Complaint: Abd pain - History of Present Illness History of Present Illness: Patient is a 76 year old white male who is being admitted due to abdominal pain and pancreatitis. CT revealed cyst on pancreas and recommends MRI abd. Patient reports some nausea and denies vomiting. Patient is currently under investigation of possible bladder and lung cancer. Patient has not yet had a biopsy of concerning areas however has upcoming appts for further testing. Patient [place] up with [place] HTN, DM, HLD, lung mass, bladder mass and multiple other conditions. - Past Medical History Past Medical History: Coronary Artery Disease, Hypertension, Diabetes, Anxiety Additional Medical History: Unknown lung and bladder mass. - Past Surgical History Surgical History: CABG/Valve Surgery, Ortho Surgery - Family History Family Medical History: Diabetes Mellitus, Hypertension - Social History Does patient currently use any type of tobacco product: No Have you used tobacco products in the last 12 months: No Type of Tobacco Use: None Does any household member use tobacco: No Alcohol Use: None Drug Use: None - Medications Home Medications: codeine Allergy (Verified 10/10/21 16:28) meperidine [From Demerol] Allergy (Verified 10/10/21 16:28) CONTINUE taking the following medications cilostazol 50 mg PO DAILY 10/10/21 [History] cilostazol 100 mg PO DAILY 10/10/21 [History] cyanocobalamin (vitamin B-12) 1,000 mcg PO DAILY 10/10/21 [History] empagliflozin 25 mg PO HS 10/10/21 [History] losartan 100 mg PO DAILY 10/10/21 [History] meloxicam 7.5 mg PO DAILY 10/10/21 [History] mirabegron 25 mg PO HS 10/10/21 [History] niacinamide 500 mg PO DAILY 10/10/21 [History] pantoprazole 20 mg PO DAILY 10/10/21 [History] trospium 20 mg PO DAILY 10/10/21 [History] - Review of Systems Constitutional: See HPI Eyes: See HPI ENT: See HPI Respiratory: See HPI Cardiovascular: See HPI Gastrointestinal: See HPI Genitourinary: See HPI Musculoskeletal: See HPI Skin: See HPI Neurological: See HPI - Physical Exam Vital Signs: Temperature 98.5 F Pulse Rate [Bilateral Radial] 72 Pulse Rate 77 Respiratory Rate 20 Blood Pressure [Right Arm] 131/72 Blood Pressure [Left Arm] 130/72 Blood Pressure 140/83 O2 Sat by Pulse Oximetry 92 Oriented: Normal Eyes: Normal Ear: Normal Nose: Normal Throat: Normal Respiratory: Clear Throughout Cardiovascular: Normal : Normal Auscultation: Bowel Sounds: Normal Palpation: Normal Tenderness: Diffuse, Moderate Skin: Normal Musculoskeletal: Normal Psychiatric: Normal Mood Description: Calm Affect: Normal Speech Pattern: Clear, Appropriate - Assessment/Plan (1) Pancreatitis Status: Acute Plan: Admit. Pain control. Regular diet. Repeat labs in am. MRI abd (2) Abdominal pain Qualifiers: Abdominal location: left lower quadrant Qualified Code(s): R10.32 - Left lower quadrant pain Status: Acute (3) Diabetes mellitus Qualifiers: Diabetes mellitus type: type 2 Status: Chronic (4) Hyperlipidemia Status: Chronic - Allergies Allergies/Adverse Reactions: Allergies Allergy/AdvReac Type Severity Reaction Status Date / Time codeine Allergy Verified 10/10/21 16:28 meperidine [From Demerol] Allergy Verified 10/10/21 16:28
--- NOTE | 2021-10-12 18:16 | PCM.PROG ---
Progress Note - Progress Note for Day of Date of Exam: 10/11/21 - Subjective Subjective: Patient is a 76 year old male who was admitted as per HPI. Patient continues to require IV pain meds. Currently pending MRI abd. Patient denies vomiting. Continues to report abd pain. No other concerns at present. - Past Medical Family Social History Past Med/Fam/Surg Hx: No changes since H&P Allergies: Allergies codeine Allergy (Verified 10/10/21 16:28) meperidine [From Demerol] Allergy (Verified 10/10/21 16:28) - Review of Systems ROS: No change since H&P - Vital Signs and I&O's Vital Signs: Temperature 98.5 F Pulse Rate [Bilateral Radial] 72 Pulse Rate 77 Respiratory Rate 20 Blood Pressure [Right Arm] 131/72 Blood Pressure [Left Arm] 130/72 Blood Pressure 140/83 O2 Sat by Pulse Oximetry 92 Intake and Output: Intake & Output 10/09/21 10/10/21 10/11/21 10/12/21 23:59 23:59 23:59 23:59 Intake Total 480 / 480 2141 / 2141 1715 / 1715 Balance 480 / 480 2141 / 2141 1715 / 1715 - Physical Exam Oriented: Normal Eyes: Normal Ear: Normal Nose: Normal Throat: Normal Respiratory: Normal Cardiovascular: Normal : Normal Auscultation: Bowel Sounds: Normal Palpation: Normal Tenderness: Diffuse, Moderate Skin: Normal Musculoskeletal: Normal Psychiatric: Normal Mood Description: Calm Affect: Normal Speech Pattern: Clear, Appropriate - Laboratory and Diagnostics Result Diagrams: 10/12/21 06:56 10/12/21 06:56 Labs: Laboratory WBC 4.3 X10^3/uL (3.6-10.0) 10/12/21 06:56 RBC 5.22 X10^6/uL (4.7-6.0) 10/12/21 06:56 Hgb 14.4 g/dL (13.5-18.0) 10/12/21 06:56 Hct 42.8 % (42.0-54.0) 10/12/21 06:56 MCV 82.1 fL (80.0-100.0) 10/12/21 06:56 MCH 27.6 pg (27.0-34.0) 10/12/21 06:56 MCHC 33.7 g/dL (33.0-35.0) 10/12/21 06:56 RDW 16.1 % (11.6-16.5) 10/12/21 06:56 Plt Count 197 X10^3/uL (150.0-450.0) 10/12/21 06:56 MPV 7.1 fL (7.4-11.0) L 10/12/21 06:56 Neut % (Auto) 59.6 % (42.0-75.0) 10/12/21 06:56 Lymph % (Auto) 27.6 % (21.0-51.0) 10/12/21 06:56 [place] % (Auto) 7.8 % (0.0-13.0) 10/12/21 06:56 Eos % (Auto) 4.6 % (0.9-2.9) H 10/12/21 06:56 Baso % (Auto) 0.4 % (0.2-1.0) 10/12/21 06:56 Neut # (Auto) 2.6 x10^3/uL (2.2-4.8) 10/12/21 06:56 Lymph # (Auto) 1.2 X10^3/uL (1.3-2.9) L 10/12/21 06:56 [place] # (Auto) 0.3 x10^3/uL (0.3-0.8) 10/12/21 06:56 Eos # (Auto) 0.2 x10^3/uL (0.0-0.2) 10/12/21 06:56 Baso # (Auto) 0.0 X10^3/uL (0.0-0.1) 10/12/21 06:56 Absolute Nucleated RBC 0.0 /100WBC 10/12/21 06:56 Sodium 141 mmol/L (136-145) 10/12/21 06:56 Corrected Sodium 142 mmol/L (136-145) 10/12/21 06:56 Potassium 4.1 mmol/L (3.5-5.1) 10/12/21 06:56 Chloride 105 mmol/L (98-107) 10/12/21 06:56 Carbon Dioxide 29.3 mmol/L (21-32) 10/12/21 06:56 BUN 15 mg/dL (7-18) 10/12/21 06:56 Creatinine 1.33 mg/dL (0.70-1.30) H 10/12/21 06:56 Est GFR (MDRD) Af Amer > 60 (>60) 10/12/21 06:56 Est GFR (MDRD) Non-Af 56 (>60) L 10/12/21 06:56 Glucose 138 mg/dL (65-99) H 10/12/21 06:56 POC Glucose (mg/dL) 153 mg/dL (65-99) H 10/12/21 15:50 Calcium 8.9 mg/dL (8.5-10.1) 10/12/21 06:56 Corrected Calcium TNP 10/12/21 06:56 Total Bilirubin 0.80 mg/dL (0.2-1.0) 10/12/21 06:56 AST 18 Units/L (15-37) 10/12/21 06:56 ALT 18 Units/L (12-78) 10/12/21 06:56 Alkaline Phosphatase 87 Units/L (46-116) 10/12/21 06:56 Creatine Kinase 195 Units/L (39-308) 10/10/21 11:33 CK-MB (CK-2) 2.2 ng/mL (0-4.0) 10/10/21 11:33 CK/CKMB % Calc 1.1 % (<4) 10/10/21 11:33 Troponin I High Sens 9.7 ng/L (4.0-60.0) 10/10/21 11:33 Total Protein 6.9 g/dL (6.4-8.2) 10/12/21 06:56 Albumin 3.6 g/dL (3.4-5.0) 10/12/21 06:56 Globulin 3.3 g/dL (2.5-4.5) 10/12/21 06:56 Albumin/Globulin Ratio 1.1 Ratio (1.1-2.1) 10/12/21 06:56 Amylase 56 Units/L (25-115) 10/11/21 04:54 Lipase 59 Units/L (73-393) L 10/11/21 04:54 Specimen Type Clean catch urine 10/10/21 20:00 Urine Color Pale yellow (YELLOW) 10/10/21 20:00 Urine Appearance Clear (CLEAR) 10/10/21 20:00 Urine pH 7.0 (5.0 - 8.0) 10/10/21 20:00 Ur Specific [place] 1.010 (1.000-1.030) 10/10/21 20:00 Urine Protein Negative (NEGATIVE) 10/10/21 20:00 Urine Glucose (UA) 4+ (NEGATIVE) 10/10/21 20:00 Urine Ketones Negative (NEGATIVE) 10/10/21 20:00 Urine Blood Negative (NEGATIVE) 10/10/21 20:00 Urine Nitrite Negative (NEGATIVE) 10/10/21 20:00 Urine Bilirubin Negative (NEGATIVE) 10/10/21 20:00 Urine Urobilinogen Normal (NORMAL) 10/10/21 20:00 Ur Leukocyte Esterase Negative (NEGATIVE) 10/10/21 20:00 SARS-CoV-2 (PCR) Negative (NEGATIVE) 10/10/21 16:50 - Plan (1) Pancreatitis Status: Acute Plan: Admit. Pain control. Regular diet. Repeat labs in am. MRI abd (2) Abdominal pain Status: Acute Qualifiers: Abdominal location: left lower quadrant Qualified Code(s): R10.32 - Left lower quadrant pain (3) Diabetes mellitus Status: Chronic Qualifiers: Diabetes mellitus type: type 2 (4) Hyperlipidemia Status: Chronic (5) Pancreatic cyst Status: Acute Plan: Pending MRI
--- NOTE | 2021-10-12 18:18 | PCM.PROG ---
Progress Note - Subjective Subjective: Patient is a 76 year old male who was admitted as per HPI. Patient continues to require IV pain meds. MRI confirms pancreatic cyst. Patient denies vomiting. Continues to report abd pain. No other concerns at present. Possible dc in am. - Past Medical Family Social History Past Med/Fam/Surg Hx: No changes since H&P Allergies: Allergies codeine Allergy (Verified 10/10/21 16:28) meperidine [From Demerol] Allergy (Verified 10/10/21 16:28) - Review of Systems ROS: No change since H&P - Vital Signs and I&O's Vital Signs: Temperature 98.5 F Pulse Rate [Bilateral Radial] 72 Pulse Rate 77 Respiratory Rate 20 Blood Pressure [Right Arm] 131/72 Blood Pressure [Left Arm] 130/72 Blood Pressure 140/83 O2 Sat by Pulse Oximetry 92 Intake and Output: Intake & Output 10/09/21 10/10/21 10/11/21 10/12/21 23:59 23:59 23:59 23:59 Intake Total 480 / 480 2141 / 2141 1715 / 1715 Balance 480 / 480 2141 / 2141 1715 / 1715 - Physical Exam Oriented: Normal Eyes: Normal Ear: Normal Nose: Normal Throat: Normal Respiratory: Normal Cardiovascular: Normal : Normal Auscultation: Bowel Sounds: Normal Palpation: Normal Tenderness: Diffuse, Moderate Skin: Normal Musculoskeletal: Normal Psychiatric: Normal Mood Description: Calm Affect: Normal Speech Pattern: Clear, Appropriate - Laboratory and Diagnostics Result Diagrams: 10/12/21 06:56 10/12/21 06:56 Labs: Laboratory WBC 4.3 X10^3/uL (3.6-10.0) 10/12/21 06:56 RBC 5.22 X10^6/uL (4.7-6.0) 10/12/21 06:56 Hgb 14.4 g/dL (13.5-18.0) 10/12/21 06:56 Hct 42.8 % (42.0-54.0) 10/12/21 06:56 MCV 82.1 fL (80.0-100.0) 10/12/21 06:56 MCH 27.6 pg (27.0-34.0) 10/12/21 06:56 MCHC 33.7 g/dL (33.0-35.0) 10/12/21 06:56 RDW 16.1 % (11.6-16.5) 10/12/21 06:56 Plt Count 197 X10^3/uL (150.0-450.0) 10/12/21 06:56 MPV 7.1 fL (7.4-11.0) L 10/12/21 06:56 Neut % (Auto) 59.6 % (42.0-75.0) 10/12/21 06:56 Lymph % (Auto) 27.6 % (21.0-51.0) 10/12/21 06:56 [place] % (Auto) 7.8 % (0.0-13.0) 10/12/21 06:56 Eos % (Auto) 4.6 % (0.9-2.9) H 10/12/21 06:56 Baso % (Auto) 0.4 % (0.2-1.0) 10/12/21 06:56 Neut # (Auto) 2.6 x10^3/uL (2.2-4.8) 10/12/21 06:56 Lymph # (Auto) 1.2 X10^3/uL (1.3-2.9) L 10/12/21 06:56 [place] # (Auto) 0.3 x10^3/uL (0.3-0.8) 10/12/21 06:56 Eos # (Auto) 0.2 x10^3/uL (0.0-0.2) 10/12/21 06:56 Baso # (Auto) 0.0 X10^3/uL (0.0-0.1) 10/12/21 06:56 Absolute Nucleated RBC 0.0 /100WBC 10/12/21 06:56 Sodium 141 mmol/L (136-145) 10/12/21 06:56 Corrected Sodium 142 mmol/L (136-145) 10/12/21 06:56 Potassium 4.1 mmol/L (3.5-5.1) 10/12/21 06:56 Chloride 105 mmol/L (98-107) 10/12/21 06:56 Carbon Dioxide 29.3 mmol/L (21-32) 10/12/21 06:56 BUN 15 mg/dL (7-18) 10/12/21 06:56 Creatinine 1.33 mg/dL (0.70-1.30) H 10/12/21 06:56 Est GFR (MDRD) Af Amer > 60 (>60) 10/12/21 06:56 Est GFR (MDRD) Non-Af 56 (>60) L 10/12/21 06:56 Glucose 138 mg/dL (65-99) H 10/12/21 06:56 POC Glucose (mg/dL) 153 mg/dL (65-99) H 10/12/21 15:50 Calcium 8.9 mg/dL (8.5-10.1) 10/12/21 06:56 Corrected Calcium TNP 10/12/21 06:56 Total Bilirubin 0.80 mg/dL (0.2-1.0) 10/12/21 06:56 AST 18 Units/L (15-37) 10/12/21 06:56 ALT 18 Units/L (12-78) 10/12/21 06:56 Alkaline Phosphatase 87 Units/L (46-116) 10/12/21 06:56 Creatine Kinase 195 Units/L (39-308) 10/10/21 11:33 CK-MB (CK-2) 2.2 ng/mL (0-4.0) 10/10/21 11:33 CK/CKMB % Calc 1.1 % (<4) 10/10/21 11:33 Troponin I High Sens 9.7 ng/L (4.0-60.0) 10/10/21 11:33 Total Protein 6.9 g/dL (6.4-8.2) 10/12/21 06:56 Albumin 3.6 g/dL (3.4-5.0) 10/12/21 06:56 Globulin 3.3 g/dL (2.5-4.5) 10/12/21 06:56 Albumin/Globulin Ratio 1.1 Ratio (1.1-2.1) 10/12/21 06:56 Amylase 56 Units/L (25-115) 10/11/21 04:54 Lipase 59 Units/L (73-393) L 10/11/21 04:54 Specimen Type Clean catch urine 10/10/21 20:00 Urine Color Pale yellow (YELLOW) 10/10/21 20:00 Urine Appearance Clear (CLEAR) 10/10/21 20:00 Urine pH 7.0 (5.0 - 8.0) 10/10/21 20:00 Ur Specific [place] 1.010 (1.000-1.030) 10/10/21 20:00 Urine Protein Negative (NEGATIVE) 10/10/21 20:00 Urine Glucose (UA) 4+ (NEGATIVE) 10/10/21 20:00 Urine Ketones Negative (NEGATIVE) 10/10/21 20:00 Urine Blood Negative (NEGATIVE) 10/10/21 20:00 Urine Nitrite Negative (NEGATIVE) 10/10/21 20:00 Urine Bilirubin Negative (NEGATIVE) 10/10/21 20:00 Urine Urobilinogen Normal (NORMAL) 10/10/21 20:00 Ur Leukocyte Esterase Negative (NEGATIVE) 10/10/21 20:00 SARS-CoV-2 (PCR) Negative (NEGATIVE) 10/10/21 16:50 - Plan (1) Pancreatitis Status: Acute Plan: Pain control. Regular diet. Repeat labs in am (2) Abdominal pain Status: Acute Qualifiers: Abdominal location: left lower quadrant Qualified Code(s): R10.32 - Left lower quadrant pain (3) Diabetes mellitus Status: Chronic Qualifiers: Diabetes mellitus type: type 2 (4) Hyperlipidemia Status: Chronic (5) Pancreatic cyst Status: Acute
[2021-10-12] MEDS: DETROL LA 2 MG CAP EXT REL PO SCH (20:00)
[2021-10-12] MEDS: LIPITOR TAB 20 MG PO SCH (20:00)
[2021-10-12] MEDS: CYMBALTA PO SCH (20:00)
[2021-10-12] MEDS: MORPHINE SULFATE INJ 2 MG INJ IVP PRN (20:15)
[2021-10-13 04:20] LABS: BASOPHILS % (AUTO) 0.5 % (0.2-1.0); EOSINOPHILS # (AUTO) 0.2 x10^3/uL (0.0-0.2); EOSINOPHILS % (AUTO) 4.4 % (0.9-2.9); HEMATOCRIT 41.9 % (42.0-54.0); HEMOGLOBIN 14.1 g/dL (13.5-18.0); LYMPHOCYTES # (AUTO) 1.2 X10^3/uL (1.3-2.9); LYMPHOCYTES % (AUTO) 28.5 % (21.0-51.0); MEAN CORPUSCULAR HEMOGLOBIN 27.7 pg (27.0-34.0); MEAN CORPUSCULAR HGB CONC 33.7 g/dL (33.0-35.0); MEAN CORPUSCULAR VOLUME 82.2 fL (80.0-100.0); MEAN PLATELET VOLUME 6.9 fL (7.4-11.0); MONOCYTES # (AUTO) 0.4 x10^3/uL (0.3-0.8); MONOCYTES % (AUTO) 9.2 % (0.0-13.0); NEUTROPHILS # (AUTO) 2.4 x10^3/uL (2.2-4.8); NEUTROPHILS % (AUTO) 57.4 % (42.0-75.0); RED BLOOD COUNT 5.09 X10^6/uL (4.7-6.0); RED CELL DISTRIBUTION WIDTH 16.1 % (11.6-16.5); WHITE BLOOD COUNT 4.2 X10^3/uL (3.6-10.0)
[2021-10-13 04:33] LABS: ALANINE AMINOTRANSFERASE 16 Units/L (12-78); ALBUMIN 3.5 g/dL (3.4-5.0); ALKALINE PHOSPHATASE 84 Units/L (46-116); ASPARTATE AMINO TRANSFERASE 16 Units/L (15-37); BLOOD UREA NITROGEN 17 mg/dL (7-18); CALCIUM 8.5 mg/dL (8.5-10.1); CARBON DIOXIDE 28.7 mmol/L (21-32); CHLORIDE 106 mmol/L (98-107); COR NA(FOR HYPERGLY) 143 mmol/L (136-145); CREATININE 1.36 mg/dL (0.70-1.30); SODIUM 141 mmol/L (136-145); TOTAL PROTEIN 6.7 g/dL (6.4-8.2); eGFR NON BLACK RACES 54 (>60)
[2021-10-13] MEDS: NS 1,000 ML IV 1,000 ML IV SCH ×2 (05:01→15:51)
[2021-10-13 08:39] LABS: AMYLASE 75 Units/L (25-115); LIPASE 50 Units/L (73-393)
[2021-10-13] MEDS: PLETAL PO SCH (09:11)
[2021-10-13] MEDS: NORVASC TAB 5 MG PO SCH (09:11)
[2021-10-13] MEDS: COREG TAB 12.5 MG PO SCH (09:11)
[2021-10-13] MEDS: COZAAR PO SCH (09:11)
[2021-10-13] MEDS: LASIX PO SCH (09:12)
[2021-10-13] MEDS: PROTONIX TAB 40 MG PO SCH (09:12)
[2021-10-13] MEDS: NIACINAMIDE 500 MG PO SCH (09:15)
[2021-10-13] MEDS: PEPCID 20 MG VIAL 20 MG in NS 50 ML IV 50 ML IV SCH (09:15)
[2021-10-13] MEDS: GLUCOPHAGE PO SCH ×2 (09:19→10:53)
[2021-10-13] MEDS ORDERED: GLUCOPHAGE ONE (09:19)
[2021-10-13] MEDS: CYANOCOBALAMIN PO SCH (09:24)
[2021-10-13] MEDS: EMPAGLIFLOZIN 10 MG PO SCH (09:25)
--- NOTE | 2021-10-13 14:50 | CT ---
CHEST WITH CONCLINICAL INDICATION: LUNG CANCER SEEN ON PET SCANPROCEDURE: Following administration of non-ionic IV contrast, postcontrast CT images were obtained through the chest. Dose reduction techniques including Automated Exposure Control (AEC) and adjustment of mA and kV were utlized.COMPARISON: [None]FINDINGS:The heart is normal in size . No pericardial effusion. Ascending thoracic aorta measures 4.4 cm. Severe coronary calcification. Small hiatal hernia. No suspicious mediastinal or axillary lymph nodes . No focal consolidations, pleural effusions or pneumothorax .Airways are patent. 2.2 cm right upper lobe pulmonary nodule on series 4, image 30. 4 mm left lower lobe nodule on series 5, image 53.Limited images of the upper abdomen are unremarkable.No aggressive osseous lesions.IMPRESSION:1. Right upper lobe nodule measuring 2.2 cm. No definite evidence of metastatic disease.2. Aneurysmal dilatation of the ascending thoracic aorta.3. Small 4 mm left lower lobe pulmonary nodule of doubtful clinical concern.Electronically signed by: ELVIS ZIEGLER (October 13, 2021 14:49:04)
[2021-10-13 15:44] VITALS: BP 128/60
--- NOTE | 2021-11-03 14:29 | PCM.DCPLAN ---
Discharge Plan - Discharge Plan Hospital Course: Admit date 10/10/21 Discharge date 10/13/21 DOS 10/13/21 Admit Diagnosis(1) Pancreatitis (2) Abdominal pain (3) Diabetes mellitus (4) Hyperlipidemia Discharge Diagnosis(1) Pancreatitis (2) Abdominal pain (3) Diabetes mellitus (4) Hyperlipidemia (5) Pancreatic cyst (6) Pulmonary nodule (7) GERD Hospital Course Patient is a 76 year old white male who is being admitted due to abdominal pain and pancreatitis. CT revealed cyst on pancreas and recommends MRI abd. Patient reports some nausea and denies vomiting. Patient is currently under investigation of possible bladder and lung cancer. Patient has not yet had a biopsy of concerning areas however has upcoming appts for further testing. [facility] HTN, DM, HLD, lung mass, bladder mass and multiple other conditions. CT chest revealed pulmonary nodule. MRI abd reveals no acute findings; see report. Labs returned to normal. Patient able to tolerate food and fluids po. No nausea vomiting or pain reported at discharge. See med rec for changes. Patient encouraged to follow up with pcp in 1 week. Greater than 35 mins spent on discharge. Disposition: 01 HOME, SELF-CARE Condition: Stable Health Concerns: Post Hospitalization: new medications and changes needed to prevent readmission or further decline. Pt educated and given instructions on all concerns. Plan of Treatment: Continue with present treatment and follow up plan. Pt is to keep follow up appointment as instructed and take medications as ordered. Prescriptions: New pantoprazole [Protonix] [address] For Susp In Packet 40 mg PO BID Qty: 60 RF: 1 Prescription Printed Continued amlodipine 5 mg Tablet 5 mg PO DAILY atorvastatin 20 mg Tablet 80 mg PO HS carvedilol 12.5 mg Tablet 12.5 mg PO BID cilostazol 100 mg tablet 100 mg PO DAILY cilostazol 50 mg Tablet 50 mg PO DAILY cyanocobalamin (vitamin B-12) 25 mcg Tablet 1,000 mcg PO DAILY duloxetine 30 mg Capsule, Delayed Rel Sprinkle 30 mg PO HS empagliflozin 10 mg Tablet 25 mg PO HS furosemide [Lasix] 20 mg Tablet 20 mg PO QAM Qty: 10 RF: 0 losartan 100 mg tablet 100 mg PO DAILY meloxicam 7.5 mg Tablet 7.5 mg PO DAILY metformin 500 mg Tablet 500 mg PO DAILY mirabegron 25 mg Tablet Extended Release 24 Hr 25 mg PO HS niacinamide 500 mg tablet 500 mg PO DAILY pantoprazole 20 mg Tablet,Delayed Release (Dr/Ec) 20 mg PO DAILY quetiapine 100 mg Tablet 100 mg PO HS trospium 20 mg tablet 20 mg PO DAILY Changed pantoprazole 40 mg Tablet,Delayed Release (Dr/Ec) 40 mg PO BID Qty: 60 RF: 0 Changed from: 40 mg oral daily - Orders to Discharge Patient Discharge Orders: Discharge (Routine); Ordered 10/13/21 Ordered By: Jeni Knight - Instructions Instructions: Cellulitis, Adult, Edema, Flank Pain, Adult, [id number], Acute Pancreatitis, [id number], Abdominal Pain, Adult, [id number], Pancreatitis Eating Plan, Flank Pain, Adult, Edema, [id number], Acute Pancreatitis Forms: Excuse From Work or School, Precautions for COVID19, [facility], Patient Portal, Social Distancing Print Language: LUXEMBOURGER
== END 2021-10-13 16:50 | disposition home or self-care (01) ==
LOC: MED/SURG 10:36 → ER 10:36 → MED/SURG 17:07
PROVIDERS: ADMIT Internal Medicine; ATTEND Internal Medicine
DX: Z20.822 Contact with and (suspected) exposure to COVID-19; E78.2 Mixed hyperlipidemia; K85.90 Acute pancreatitis without necrosis or infection, unspecified; E11.65 Type 2 diabetes mellitus with hyperglycemia; R10.32 Left lower quadrant pain; R94.31 Abnormal electrocardiogram [ECG] [EKG]; K86.2 Cyst of pancreas; R13.11 Dysphagia, oral phase; I71.4 Abdominal aortic aneurysm, without rupture

== ENCOUNTER 2023-06-11 14:41 | Inpatient (IN) ==
--- NOTE | 2023-06-11 14:58 | EKG ---
Test Reason : short of breath Blood Pressure : */* mmHG Vent. Rate : 90 BPM Atrial Rate : 90 BPM P-R Int : 182 ms QRS Dur : 90 ms QT Int : 332 ms P-R-T Axes : 82 -30 51 degrees QTc Int : 406 ms Sinus rhythm with premature atrial complexes Left axis deviation Inferior infarct , age undetermined Cannot rule out Anterior infarct , age undetermined Abnormal ECG No previous ECGs available Confirmed by Candido Olivas MD ([id number]) on 06/11/2023 3:20:57 PM Referred By: Confirmed By: Candido Olivas MD
--- NOTE | 2023-06-11 15:19 | DR.AMS ---
HPI Time Seen Time Seen by Provider: 06/11/23 15:19 PCP Primary Care Physician: RAFI HPI Comment HPI Comment: AMS and lethargy. Complaint Cheif Complaint Doctors Comments: Patient is 77yr old male in ER via EMS with AMS and lethargy. Patient is running low grade fever, is nauseated and is having abdominal distension. Patient is weak. Chief Complaint:: PATIENT BIB EMS WITH C/O AMS AND LETHARGY. PATIENTS FAMILY AND SPEECH THERAPY STATES PATIENT HAS BEEN STATING OFF THE ALL STUFF TODAY. PATIENT NOTED TO BE VERY HOARSE FROM PREVIOUS DIFFICULTY FROM PREVIOUS SURGERY. PER EMS UPON ARRIVAL TO PATIENTS HOUSE PATIENT WAS NOTED TO BE 90% ON R/A. PATIENT PLACED ON NC 2LPM. COVID-19 Coronavirus risk:travel/contact w/high risk person: No Has patient experienced Coronavirus symptoms: No Reviewed Nurses Notes Reviewed: Yes Source History Provided: Patient and EMS Mode of Arrival Mode of Arrival: EMS Timing Onset of Chief Complaint: 06/11/23 PMH PMH Past Medical History: Yes Past Medical History: Anxiety, Coronary Artery Disease, Diabetes and Hypertension Past Medical History Comment: BRAIN CA, PANCREATITIS, MENINGITISIS Past Surgical History: Yes Surgical History: CABG/Valve Surgery and Ortho Surgery Family History History of Family Medical Conditions: Yes Family Medical History: Diabetes Mellitus and Hypertension Social History Does any household member use tobacco: No Alcohol Use: None Do you use any recreational Drugs:: No Lives With: Family Lives Where: Home Travel Risk Coronavirus risk:travel/contact w/high risk person: No Has patient experienced Coronavirus symptoms: No Infectious screening In the last 2 months have you had wt loss of >10#?: NO Have you had fever, night sweats or hemotysis?: No Have you traveled outside the country in the last 6 months?: No Isolation: Standard ROS Review of Systems Constitutional: Fever, Weakness, Fatigue and Other (AMS.) Eyes: No Symptoms Reported ENTM: Nose Congestion; negative Nose Discharge Respiratoy: Moist Cough and Short of Breath; negative Wheezing Cardiovascular: negative Chest Pain Gastrointestinal/Abdominal: Abdominal Pain and Nausea Genitourinary: No Symptoms Reported; negative Dysuria Neurological: Other (AMS); negative Headache or Dizziness Musculoskeletal: No Symptoms Reported; negative Muscle Pain Integumentary: No Symptoms Reported; negative Juandice Hematologic/Lymphatic: Easy Bruising Endocrine: No Symptoms Reported; negative Increased Thirst or Increased Urine Psychiatric: No Symptoms Reported All Other Systems: Reviewed and Negative PE Vitals Vital Signs: Temp Pulse Resp BP Pulse Ox O2 Del Method 06/11/23 14:42 99.1 F 86 20 127/60 100 Nasal Cannula General Limitations: No Limitations General Appearance: Alert and In Distress Head Head Exam: Normal Inspection and Atraumatic Eyes Eye exam: Normal Appearance; negative Scleral Icterus ENT ENT Exam: Normal Exam, Normal Oropharynx, Normal External Ear Exam and TM's Normal Bilaterally Neck Neck Exam: Normal Inspection and Trachea Midline; negative Tenderness Chest Chest Inspection: Normal Inspection and Symmetric Chest Wall Rise; negative Tenderness Respiratory Respiratory Exam: Normal Lung Sounds Bilat; negative Accessory Muscle Use, Chest Wall Tenderness or Respiratory Distress Respiratory Exam: Bilateral: Rhonchi Cardiovascular Cardiovascular Exam: Regular Rate, Normal Rhythm and Normal Heart Sounds; negative Systolic Murmur or Diastolic Murmur Abdominal Exam Abdominal Exam: Normal Bowel Sounds, Soft, Distention and Tenderness Abdominal Tenderness: Diffuse and Moderate Extremities Extremities Exam: Normal Inspection and Normal Capillary Refill Neurological Neurological Exam: Alert; negative Oriented X3 or Motor Sensory Deficit Patient Oriented To: Person and Place; negative Time Speech: Fluid Speech Cranial Nerve Exam: EOM Function (II, III, IV, ): Normal, Facial Sensation (V): Normal, Facial Palsy (VII): Normal, Gag reflex (XI): Normal, Spinal Accessory Function (XI): Normal and Tongue Deviation: Normal Motor Strength - LUE: 5/5 Motor Strength - RUE: 5/5 Motor Strength - LLE: 5/5 Motor Strength - RLE: 5/5 Psychological Psychiatric Exam: Normal Affect and Flat Affect Skin Skin Exam: Warm and Intact MDM Differential Diagnosis Metabolic: Dehydration, Hypercalcemia, Hypernatremia, Hypoglycemia, Hyponatremia and Hypoxemia Infectious: UTI (Pneumonia, bronchitis.) COURSE Treatment Treatment: See orders done while patient was in ER. Labs, EKG, CT and Xray discussed. Patient admitted to hospital for further management. Consultation Consultation Comments: Discussed patient with Gil Laboy. He will admit patient. Education/Counseling Education/Counseling: Patient Educated On: Diagnosis ROR Labs Reviewed Laboratory Results Reviewed?: Yes 06/18/23 04:21 06/18/23 04:21 Laboratory: 06/11/23 15:49 Blood Blood Culture - Final 06/11/23 15:48 Blood Blood Culture - Final WBC 8.1 X10^3/uL (3.6-10.0) 06/11/23 15:49 RBC 3.30 X10^6/uL (4.7-6.0) L 06/11/23 15:49 Hgb 8.0 g/dL (13.5-18.0) L 06/11/23 15:49 Hct 25.2 % (42.0-54.0) L 06/11/23 15:49 MCV 76.6 fL (80.0-100.0) L 06/11/23 15:49 MCH 24.2 pg (27.0-34.0) L 06/11/23 15:49 MCHC 31.5 g/dL (33.0-35.0) L 06/11/23 15:49 RDW 18.8 % (11.6-16.5) H 06/11/23 15:49 Plt Count 465 X10^3/uL (150.0-450.0) H 06/11/23 15:49 MPV 6.0 fL (7.4-11.0) L 06/11/23 15:49 Neut % (Auto) 73.1 % (42.0-75.0) 06/11/23 15:49 Lymph % (Auto) 18.7 % (21.0-51.0) L 06/11/23 15:49 [place] % (Auto) 6.8 % (0.0-13.0) 06/11/23 15:49 Eos % (Auto) 0.9 % (0.9-2.9) 06/11/23 15:49 Baso % (Auto) 0.5 % (0.2-1.0) 06/11/23 15:49 Neut # (Auto) 5.9 x10^3/uL (2.2-4.8) H 06/11/23 15:49 Lymph # (Auto) 1.5 X10^3/uL (1.3-2.9) 06/11/23 15:49 [place] # (Auto) 0.6 x10^3/uL (0.3-0.8) 06/11/23 15:49 Eos # (Auto) 0.1 x10^3/uL (0.0-0.2) 06/11/23 15:49 Baso # (Auto) 0.0 X10^3/uL (0.0-0.1) 06/11/23 15:49 Absolute Nucleated RBC 0.0 /100WBC 06/11/23 15:49 Sodium 137 mmol/L (136-145) 06/11/23 15:49 Corrected Sodium 138 mmol/L (136-145) 06/11/23 15:49 Potassium 3.3 mmol/L (3.5-5.1) L 06/11/23 15:49 Chloride 103 mmol/L (98-107) 06/11/23 15:49 Carbon Dioxide 28.9 mmol/L (21-32) 06/11/23 15:49 BUN 22 mg/dL (7-18) H 06/11/23 15:49 Creatinine 1.16 mg/dL (0.70-1.30) 06/11/23 15:49 Est GFR (MDRD) Af Amer > 60 (>60) 06/11/23 15:49 Est GFR (MDRD) Non-Af > 60 (>60) 06/11/23 15:49 Glucose 142 mg/dL (65-99) H 06/11/23 15:49 Lactic Acid 0.9 mmol/L (0.4-2.0) 06/11/23 15:48 Calcium 9.2 mg/dL (8.5-10.1) 06/11/23 15:49 Corrected Calcium 11.2 mg/dL (8.5-10.1) H 06/11/23 15:49 Total Bilirubin 0.40 mg/dL (0.2-1.0) 06/11/23 15:49 AST 73 Units/L (15-37) H 06/11/23 15:49 ALT 67 Units/L (12-78) 06/11/23 15:49 Alkaline Phosphatase 135 Units/L (46-116) H 06/11/23 15:49 Ammonia < 10 umol/L (11-32) L 06/11/23 18:25 Creatine Kinase 34 Units/L (39-308) L 06/11/23 15:49 Troponin I High Sens 9.0 ng/L (4.0-60.0) 06/11/23 15:49 Total Protein 7.4 g/dL (6.4-8.2) 06/11/23 15:49 Albumin 1.5 g/dL (3.4-5.0) L 06/11/23 15:49 Globulin 5.9 g/dL (2.5-4.5) H 06/11/23 15:49 Albumin/Globulin Ratio 0.3 Ratio (1.1-2.1) L 06/11/23 15:49 Amylase 27 Units/L (25-115) 06/11/23 18:25 Lipase 12 Units/L (16-77) L 06/11/23 18:25 XRAY XRAY Interpreted by: Radiologist (Report noted.) EKG Rate: 90 [place]: LAD Rhythm: NSR and PACs Block: None Hypertrophy: None ST: Inf, Ant and Infarct (Age undetermined) Opioid Opioid Risk Tool Age (Naeem box if 16-45): No History of Preadolescent Sexual Abuse: No Total: 0 Total Score Risk Category: Low Risk Copyright: Fernando ASKEW predicting aberrant behaviors Discharge Plan Diagnosis Discharge Problem: Acute pancreatitis, Bronchitis, Hypoxia, Anemia Discharge Plan Patient Disposition: ADMITTED INPATIENT Condition: Stable
[2023-06-11 15:56] LABS: BASOPHILS % (AUTO) 0.5 % (0.2-1.0); EOSINOPHILS # (AUTO) 0.1 x10^3/uL (0.0-0.2); EOSINOPHILS % (AUTO) 0.9 % (0.9-2.9); HEMATOCRIT 25.2 % (42.0-54.0); LYMPHOCYTES # (AUTO) 1.5 X10^3/uL (1.3-2.9); LYMPHOCYTES % (AUTO) 18.7 % (21.0-51.0); MEAN CORPUSCULAR HEMOGLOBIN 24.2 pg (27.0-34.0); MEAN CORPUSCULAR HGB CONC 31.5 g/dL (33.0-35.0); MEAN CORPUSCULAR VOLUME 76.6 fL (80.0-100.0); MONOCYTES # (AUTO) 0.6 x10^3/uL (0.3-0.8); MONOCYTES % (AUTO) 6.8 % (0.0-13.0); NEUTROPHILS # (AUTO) 5.9 x10^3/uL (2.2-4.8); NEUTROPHILS % (AUTO) 73.1 % (42.0-75.0); PLATELET COUNT 465 X10^3/uL (150.0-450.0); RED CELL DISTRIBUTION WIDTH 18.8 % (11.6-16.5); WHITE BLOOD COUNT 8.1 X10^3/uL (3.6-10.0)
[2023-06-11 16:22] LABS: ALANINE AMINOTRANSFERASE 67 Units/L (12-78); ALBUMIN 1.5 g/dL (3.4-5.0); ALKALINE PHOSPHATASE 135 Units/L (46-116); ASPARTATE AMINO TRANSFERASE 73 Units/L (15-37); BLOOD UREA NITROGEN 22 mg/dL (7-18); CALCIUM 9.2 mg/dL (8.5-10.1); CARBON DIOXIDE 28.9 mmol/L (21-32); CHLORIDE 103 mmol/L (98-107); COR CA(FOR HYPOALB) 11.2 mg/dL (8.5-10.1); COR NA(FOR HYPERGLY) 138 mmol/L (136-145); CREATINE KINASE 34 Units/L (39-308); CREATININE 1.16 mg/dL (0.70-1.30); GLUCOSE 142 mg/dL (65-99); POTASSIUM 3.3 mmol/L (3.5-5.1); SODIUM 137 mmol/L (136-145); TOTAL PROTEIN 7.4 g/dL (6.4-8.2); eGFR NON BLACK RACES > 60 (>60)
--- NOTE | 2023-06-11 19:43 | CT ---
EXAM: CT ABDOMEN AND PELVIS WITHOUT INTRAVENOUS CONTRASTHISTORY: Abdominal distention.TECHNIQUE: Spiral axial CT images are obtained through the abdomen and pelvis without the administration of intravenous contrast. Additional coronal and sagittal reformatted images are reconstructed.DOSIMETRY: Total DLP 560.22 mGycm; CTDI 9.78 mGyCOMPARISON: None available.FINDINGS:GASTROINTESTINAL TRACT: There is a small collapsed hiatal hernia. There is diffuse colonic diverticulosis, especially severe in the descending colon and sigmoid region, without CT evidence for acute diverticulitis. No evidence for bowel herniation, bowel obstruction, or colitis. A normal-appearing appendix is seen. Abundant fecal material is seen within the large bowel loops and rectum in keeping with constipation.GENITOURINARY SYSTEM: There is an approximately 4.8 mm nonobstructing left upper pole renal calculus. There are approximately 1.5 cm and 1.4 cm exophytic left lower pole renal cysts. The kidneys are otherwise unremarkable. There is no ureteral calculus or stigmata of obstructive uropathy. Dilated urinary bladder (10.2 cm CC by 5.2 cm AP by 9.2 cm transverse); rule out urinary retention. There is prostatomegaly (5.1 cm transverse) in keeping with BPH; concomitant occult neoplastic disease not excluded.BILIARY SYSTEM: Dilated gallbladder; nonspecific finding which may represent sequela of NPO status; consider follow-up evaluation with ultrasound and/or HIDA scan to rule out acute gallbladder disease if clinically warranted.PANCREAS: There is evidence for acute pancreatitis marked by pancreatic enlargement and peripancreatic streaky inflammatory change. Axial image 28-44. There are multiple parenchymal cysts throughout the body and tail of the pancreas (largest measuring 4.1 cm); DDX includes pancreatic pseudocyst, and cystic pancreatic neoplasm, e.g. serocystic neoplasm, mucinous cystic neoplasm, and intraductal papillary neoplasm (IPMN). Correlation with MRI/MRCP for further characterization. Recommend follow-up at 6 month intervals 4, then every 1 year 2, then every 2 years 3 to assess interval change, or as clinically warranted.CT ABDOMEN: Severe aortoiliac atherosclerotic disease, without aneurysm formation. The liver, spleen, adrenal glands, and inferior vena cava are within normal limits for a noncontrast CT scan. There is no intra-abdominal or retroperitoneal lymphadenopathy, free fluid, or free air seen. No abdominal herniation is noted.CT PELVIS: No pelvic sidewall or inguinal lymphadenopathy is seen. No inguinal herniation is noted. No free fluid or free air is seen.BONES AND JOINTS: Status post bilateral total hip replacements with resultant streak artifacts obscuring the anatomy in the distal pelvis. L4/5: Severe DDD marked by severe disc space narrowing, vacuum disc phenomenon, and chronic posterior disc bulge/marginal osteophyte complex. L5/S1: Chronic bilateral spondylolysis with up to 15.6 mm (grade 1) spondylolisthesis and severe bilateral neural foraminal stenosis with exiting L5 nerve root impingements.LUNG BASES: The lung bases are clear.IMPRESSION:1. Evidence for acute pancreatitis marked by pancreatic enlargement and peripancreatic streaky inflammatory change. Axial image 28-44.2. Multiple parenchymal cysts throughout the body and tail of the pancreas (largest measuring 4.1 cm); DDX includes pancreatic pseudocyst, and cystic pancreatic neoplasm, e.g. serocystic neoplasm, mucinous cystic neoplasm, and intraductal papillary neoplasm (IPMN). Correlation with MRI/MRCP for further characterization. Recommend follow-up at 6 month intervals 4, then every 1 year 2, then every 2 years 3 to assess interval change, or as clinically warranted.3. No evidence for renal stone disease or obstructive uropathy.4. Prostatomegaly (5.1 cm transverse) in keeping with BPH; concomitant occult neoplastic disease not excluded.5. Dilated urinary bladder (10.2 cm CC by 5.2 cm AP by 9.2 cm transverse); rule out urinary retention.6. Small collapsed hiatal hernia.7. Diffuse colonic diverticulosis, especially severe in the descending colon and sigmoid region, without CT evidence for acute diverticulitis.8. No evidence for bowel herniation, bowel obstruction, or colitis.9. Abundant fecal material is seen within the large bowel loops and rectum in keeping with constipation.10. No free fluid, free air, mass lesions, or lymphadenopathy seen.11. L4/5: Severe DDD marked by severe disc space narrowing, vacuum disc phenomenon, and chronic posterior disc bulge/marginal osteophyte complex.12. L5/S1: Chronic bilateral spondylolysis with up to 15.6 mm (grade 1) spondylolisthesis and severe bilateral neural foraminal stenosis with exiting L5 nerve root impingements.THIS IS AN ELECTRONICALLY VERIFIED FINAL REPORT1/01/2024 7:40 PM - Electronically signed by Rio Valencia
[2023-06-11 21:18] LABS: AMYLASE 27 Units/L (25-115); LIPASE 12 Units/L (16-77)
[2023-06-11] MEDS ORDERED: NS 1,000 ML IV 1,000 ML ONE (21:47)
[2023-06-11] MEDS ORDERED: LEVAQUIN PREMIX IV 500 MG 500 MG/100 ML BAG IV ONE ×2 (21:47→21:56)
[2023-06-11] MEDS ORDERED: NS 1,000 ML IV 1,000 ML IV SCH (22:00)
[2023-06-11] MEDS: LEVAQUIN TAB 500 MG PO ONE (22:14)
[2023-06-11 23:50] VITALS: BMI 31.1
--- NOTE | 2023-06-12 04:24 | RAD ---
PROCEDURE: Chest X-ray 1 View .HISTORY: Hypoxia.TECHNIQUE: AP portable done at 3:42 p.m..COMPARISON: 08/25/2019.TECHNICAL QUALITY: Satisfactory .FINDINGS:Normal size heart with previous sternotomy.Mediastinum and hilar regions show no masses or lymphadenopathy .Normal central vascularity .No pulmonary consolidation, masses, pleural fluid, or pneumothorax .No acute bony abnormality .IMPRESSION:No active cardiopulmonary disease .Electronically signed by: Williams Pardo (Jun 12, 2023 04:22:55)
[2023-06-12 05:29] LABS: BASOPHILS % (AUTO) 0.1 % (0.2-1.0); EOSINOPHILS # (AUTO) 0.1 x10^3/uL (0.0-0.2); EOSINOPHILS % (AUTO) 1.2 % (0.9-2.9); HEMATOCRIT 24.3 % (42.0-54.0); HEMOGLOBIN 7.8 g/dL (13.5-18.0); LYMPHOCYTES # (AUTO) 1.2 X10^3/uL (1.3-2.9); LYMPHOCYTES % (AUTO) 14.6 % (21.0-51.0); MEAN CORPUSCULAR HEMOGLOBIN 24.4 pg (27.0-34.0); MEAN CORPUSCULAR HGB CONC 32.1 g/dL (33.0-35.0); MEAN PLATELET VOLUME 6.4 fL (7.4-11.0); MONOCYTES # (AUTO) 0.6 x10^3/uL (0.3-0.8); MONOCYTES % (AUTO) 7.1 % (0.0-13.0); NEUTROPHILS # (AUTO) 6.5 x10^3/uL (2.2-4.8); PLATELET COUNT 440 X10^3/uL (150.0-450.0); RED CELL DISTRIBUTION WIDTH 18.7 % (11.6-16.5); WHITE BLOOD COUNT 8.5 X10^3/uL (3.6-10.0)
[2023-06-12 05:42] LABS: ALANINE AMINOTRANSFERASE 67 Units/L (12-78); ALBUMIN 1.4 g/dL (3.4-5.0); ALKALINE PHOSPHATASE 124 Units/L (46-116); ASPARTATE AMINO TRANSFERASE 65 Units/L (15-37); BLOOD UREA NITROGEN 21 mg/dL (7-18); CARBON DIOXIDE 28.5 mmol/L (21-32); CHLORIDE 103 mmol/L (98-107); COR CA(FOR HYPOALB) 11.1 mg/dL (8.5-10.1); COR NA(FOR HYPERGLY) 142 mmol/L (136-145); CREATININE 0.97 mg/dL (0.70-1.30); GLUCOSE 170 mg/dL (65-99); MAGNESIUM 1.8 mg/dL (2.0-2.9); POTASSIUM 3.6 mmol/L (3.5-5.1); SODIUM 140 mmol/L (136-145); eGFR NON BLACK RACES > 60 (>60)
[2023-06-12] MEDS ORDERED: CONSULT PHARMACY - POTASSIUM & MAGNESIUM XX SCH (07:00)
[2023-06-12] MEDS ORDERED: MAG-OX TAB PO SCH (09:00)
[2023-06-12] MEDS ORDERED: K-DUR TAB 20 MEQ PO SCH (09:00)
[2023-06-12] MEDS: NS + KCL 20 MEQ/L 1,000 ML with MAGNESIUM SULFATE 50% INJ VIAL 1 G IV SCH ×2 (11:22)
[2023-06-12] MEDS: LEVAQUIN PREMIX IV 500 MG 500 MG/100 ML BAG IV SCH (11:23)
[2023-06-12] MEDS: MORPHINE SULFATE INJ 2 MG INJ IVP PRN (16:12)
--- NOTE | 2023-06-12 18:02 | DR.H&P ---
H&P - History & Physical for Day of: H&P Date: 06/11/23 - Chief Complaint Chief Complaint: AMS, LETHARGY, ABDOMINAL PAIN, DECREASED OXYGEN SATURATIONS - History of Present Illness History of Present Illness: IS A 77 YEAR OLD WHITE MALE. HE IS A PATIENT OF THE [facility] IN [place], [place]. HE HAS A PMH OF ANXIETY, CAD, DM II, HTN, MALIGNANT BRAIN TUMOR, LUNG CANCER, PANCREATITIS. HE PRESENTED TO THE ER VIA EMS WITH REPORTS OF ALTERED MENTAL STATUS, LETHARGY, DECREASED OXYGEN SATURATIONS, AND ABDOMINAL PAIN. PATIENTS SPOUSE REPORTS THAT HE HAS BEEN CONFUSED AND DISORIENTED ALL DAY. HE DESCRIBES DIFFUSE ABDOMINAL PAIN. PAIN IS INTERMITTENT AND DESCRIBED DULL. EMS REPORTS THAT ON ARRIVAL, PATIENTS OXYGEN SATURATIONS WERE 90% ON ROOM AIR. HE WAS PLACED ON OXYGEN VIA NASAL CANNULA AT 2 LPM. ON ARRIVAL TO THE HOSPITAL, VITALS WERE: 99.1-86-20-100%-127/60. LABS WERE OBTAINED. WBC 8.1, RBC 3.30, HGB 8.0, HCT 25.2, PLT COUNT 465, SODIUM 137, POTASSIUM 3.3, CHLORIDE 103, CARBON DIOXIDE 28.9, BUN 22, CREATININE 1.16, GLUCOSE 142, CALCIUM 9.2, TOTAL BILI 0.40, AST 73, ALT 67, ALK PHOS 135, AMMONIA <10, CREATINE KINASE 34, TROPONIN 9.0, TOTAL PROTEIN 7.4, ALBUMIN 1.5. BLOOD CULTURES WERE SET UP. EKG REVEALED SINUS RHYTHM WITH PREMATURE ATRIAL COMPLEXES WITH HR 90 BPM. A CHEST XRAY WAS OBTAINED AND REVEALED: No active cardiopulmonary disease. ABDOMEN/PELVIS CT WITHOUT CONTRAST WAS OBTAINED AND REVEALED: 1. Evidence for acute pancreatitis marked by pancreatic enlargement and peripancreatic streaky inflammatory change. 2. Multiple parenchymal cysts throughout the body and tail of the pancreas (largest measuring 4.1 cm); DDX includes pancreatic pseudocyst, and cystic pancreatic neoplasm, e.g. serocystic neoplasm, mucinous cystic neoplasm, and intraductal papillary neoplasm (IPMN). Correlation with MRI/MRCP for further characterization. Recommend follow-up at 6 month intervals, then every 1 year, then every 2 years to assess interval change, or as clinically warranted. 3. No evidence for renal stone disease or obstructive uropathy. 4. Prostatomegaly (5.1 cm transverse) in keeping with BPH; concomitant occult neoplastic disease not excluded. 5. Dilated urinary bladder (10.2 cm CC by 5.2 cm AP by 9.2 cm chong sverse); rule out urinary retention. 6. Small collapsed hiatal hernia. 7. Diffuse colonic diverticulosis, especially severe in the descending colon and sigmoid region, without CT evidence for acute diverticulitis. 8. No evidence for bowel herniation, bowel obstruction, or colitis. 9. Abundant fecal material is seen within the large bowel loops and rectum in keeping with constipation. 10. No free fluid, free air, mass lesions, or lymphadenopathy seen. 11. L4/5: Severe DDD marked by severe disc space narrowing, vacuum disc phenomenon, and chronic posterior disc bulge/marginal osteophyte complex. 12. L5/S1: Chronic bilateral spondylolysis with up to 15.6 mm (grade 1) spondylolisthesis and severe bilateral neural foraminal stenosis with exiting L5 nerve root impingements. IN THE ER, HE WAS GIVEN LEVAQUIN 500MG IV X 1 DOSE. HE WAS ADMITTED TO THE HOSPITAL INPATIENT STATUS FOR FURTHER EVALUATION AND TREATMENT OF ACUTE PANCREATITIS, HYPOXIA, BRONCHITIS, ANEMIA. HE WAS STARTED ON NORMAL SALINE WITH POTASSIUM AND MAGNESIUM AT KVO, ALBUMIN 25% IV DAILY, LEVAQUIN 500MG IV DAILY, MORPHINE SULFATE 2MG IV Q4H PRN, PEPCID 20MG IV BID, PROTONIX 40MG IV BID. WE WILL RESUME HIS HOME MEDICATIONS OF TRAZODONE, OXYCODONE, LOSARTAN, LORATADINE, DULOXETINE, LIPITOR, ELIQUIS, LEVETIRACETAM, SOLIFENACIN, VITAMIN B12, SIMETHICONE, CILOSTAZOL, NORVASC, CARVEDILOL, DULOXETINE, NIACINAMIDE, AND QUETIAPINE. OTHERWISE, WE WILL FOLLOW-UP WITH AM LABS AND CONTINUE TO MONITOR. TIME SPENT ON CLINICAL ASSESSMENT, REVIEWING LABS AND IMAGING, DECISION MAKING, AND DOCUMENTATION GREATER THAN 75 MINUTES. - Past Medical History Past Medical History: Coronary Artery Disease, Hypertension, Diabetes, Anxiety Additional Medical History: Unknown lung and bladder mass, MALIGNANT BRAIN TUMOR, PANCREATITIS - Past Surgical History Surgical History: Angioplasty/Stents, Ortho Surgery, Other - Family History Family Medical History: Diabetes Mellitus, Hypertension - Social History Does patient currently use any type of tobacco product: No Have you used tobacco products in the last 12 months: No Type of Tobacco Use: None Does any household member use tobacco: No Alcohol Use: None Drug Use: None - Review of Systems Constitutional: Weakness Eyes: No Symptoms Reported ENT: No Symptoms Reported Respiratory: No Symptoms Reported Cardiovascular: No Symptoms Reported Gastrointestinal: Abdominal Pain Genitourinary: No Symptoms Reported Musculoskeletal: No Symptoms Reported Skin: No Symptoms Reported Neurological: Weakness, Confusion - Physical Exam Vital Signs: Vital Signs Temperature 98.0 F Temperature 97.8 F Temperature 97.9 F Pulse Rate 80 Pulse Rate 79 Pulse Rate 82 Pulse Rate 83 Pulse Rate 82 Pulse Rate 85 Pulse Rate 85 Pulse Rate 80 Pulse Rate 80 Pulse Rate 81 Respiratory Rate 18 Respiratory Rate 25 Respiratory Rate 28 Respiratory Rate 30 Respiratory Rate 30 Respiratory Rate 30 Respiratory Rate 26 Respiratory Rate 25 Respiratory Rate 21 Respiratory Rate 21 Respiratory Rate 19 Blood Pressure 138/67 Blood Pressure 123/60 Blood Pressure 142/64 Blood Pressure 122/57 Blood Pressure 135/62 Blood Pressure 112/58 Blood Pressure 140/63 O2 Sat by Pulse Oximetry 99 O2 Sat by Pulse Oximetry 96 O2 Sat by Pulse Oximetry 99 O2 Sat by Pulse Oximetry 97 O2 Sat by Pulse Oximetry 100 O2 Sat by Pulse Oximetry 99 O2 Sat by Pulse Oximetry 99 O2 Sat by Pulse Oximetry 97 O2 Sat by Pulse Oximetry 97 O2 Sat by Pulse Oximetry 98 Oriented: Person Eyes: Normal Ear: Normal Nose: Normal Throat: Normal Respiratory: Diminished Throughout Cardiovascular: Normal : Normal Auscultation: Bowel Sounds: Normal Palpation: Normal Tenderness: Diffuse, Mild Skin: Normal Musculoskeletal: Normal Psychiatric: Normal Mood Description: Calm Affect: Flat Speech Pattern: Inappropriate - Assessment/Plan (1) Acute pancreatitis Qualifiers: Pancreatitis type: unspecified pancreatitis type Acute pancreatitis complication: unspecified Qualified Code(s): K85.90 - Acute pancreatitis without necrosis or infection, unspecified Status: Acute Plan: ADMIT, NORMAL SALINE WITH POTASSIUM AND MAGNESIUM AT KVO, ALBUMIN 25% IV DAILY, LEVAQUIN 500MG IV DAILY, MORPHINE SULFATE 2MG IV Q4H PRN, PEPCID 20MG IV BID, PROTONIX 40MG IV BID. RESUME HOME MEDS (2) Bronchitis Status: Acute (3) Hypoxia Status: Acute Plan: SUPPLEMENTAL OXYGEN (4) Anemia Qualifiers: Anemia type: unspecified type Qualified Code(s): D64.9 - Anemia, unspecified Status: Acute (5) HTN (hypertension) Qualifiers: Hypertension type: primary hypertension Qualified Code(s): I10 - Essential (primary) hypertension Status: Chronic Plan: RESUME HOME MEDS (6) GERD (gastroesophageal reflux disease) Qualifiers: Esophagitis presence: esophagitis presence not specified Qualified Code(s): K21.9 - Gastro-esophageal reflux disease without esophagitis Status: Chronic Plan: RESUME HOME MEDS (7) Hyperlipidemia Qualifiers: Hyperlipidemia type: mixed hyperlipidemia Qualified Code(s): E78.2 - Mixed hyperlipidemia Status: Chronic Plan: RESUME HOME MEDS (8) Major depressive disorder Qualifiers: Major depression recurrence: recurrent Active/Remission status: remission status unspecified Qualified Code(s): F33.9 - Major depressive disorder, recurrent, unspecified Status: Chronic Plan: RESUME HOME MEDS - Allergies Allergies/Adverse Reactions: Allergies Allergy/AdvReac Type Severity Reaction Status Date / Time codeine Allergy Verified 10/10/21 16:28 meperidine [From Demerol] Allergy Verified 10/10/21 16:28 Penicillins Allergy Verified 07/11/22 09:55 - Medications Home Medications: Home Medications Medication Instructions Recorded Confirmed amlodipine 5 mg tablet (Norvasc) 5 mg PO DAILY 08/25/19 06/12/23 atorvastatin 20 mg tablet (Lipitor) 20 mg PO HS 08/25/19 06/12/23 carvedilol 12.5 mg tablet 6.25 mg PO BID 08/25/19 06/12/23 duloxetine 30 mg capsule,delayed 60 mg PO HS 08/25/19 06/12/23 release sprinkle quetiapine 100 mg tablet (Seroquel) 100 mg PO HS 08/25/19 06/12/23 cilostazol 100 mg tablet 100 mg PO BID 10/10/21 06/12/23 niacinamide 500 mg tablet 500 mg PO BID 10/10/21 06/12/23 apixaban 2.5 mg tablet (Eliquis) 5 mg PO BID 06/11/23 06/12/23 cyanocobalamin (vitamin B-12) 1,000 mcg PO QDAY 06/12/23 06/12/23 1,000 mcg tablet duloxetine 60 mg capsule,delayed 60 mg PO HS 06/12/23 06/12/23 release (Cymbalta) famotidine 20 mg tablet 20 mg PO BID 06/12/23 06/12/23 levetiracetam 500 mg tablet 500 mg PO BID 06/12/23 06/12/23 loratadine 10 mg tablet 10 mg PO QDAY 06/12/23 06/12/23 losartan 50 mg tablet 50 mg PO BID 06/12/23 06/12/23 oxycodone 5 mg tablet 5 mg PO Q6H PRN 06/12/23 06/12/23 pantoprazole 40 mg tablet,delayed 40 mg PO BID 06/12/23 06/12/23 release (Protonix) simethicone 80 mg chewable tablet 80 mg PO QID 06/12/23 06/12/23 solifenacin 10 mg tablet 10 mg PO QDAY 06/12/23 06/12/23 trazodone 100 mg tablet 100 mg PO QHS 06/12/23 06/12/23
[2023-06-12] MEDS ORDERED: MYLICON TAB 80 MG CHEW PO PRN (18:03)
[2023-06-12] MEDS: COZAAR PO SCH (22:00)
[2023-06-12] MEDS: COREG TAB 12.5 MG PO SCH (22:00)
[2023-06-12] MEDS: NIACINAMIDE 500 MG PO SCH (22:00)
[2023-06-12] MEDS: PLETAL PO SCH (22:00)
[2023-06-12] MEDS: LIPITOR TAB 20 MG PO SCH (22:00)
[2023-06-12] MEDS: PEPCID 20 MG VIAL 20 MG in NS 50 ML IV 50 ML IV SCH (22:26)
[2023-06-12] MEDS: DESYREL PO SCH (22:26)
[2023-06-12] MEDS: KEPPRA TAB 500 MG PO SCH (22:26)
[2023-06-12] MEDS: PROTONIX INJ 40 MG VIAL IVP SCH (22:26)
[2023-06-12] MEDS: CYMBALTA PO SCH (22:26)
[2023-06-13 04:46] LABS: BASOPHILS # (AUTO) 0.2 X10^3/uL (0.0-0.1); BASOPHILS % (AUTO) 2.4 % (0.2-1.0); EOSINOPHILS # (AUTO) 0.1 x10^3/uL (0.0-0.2); HEMATOCRIT 22.8 % (42.0-54.0); HEMOGLOBIN 7.3 g/dL (13.5-18.0); LYMPHOCYTES # (AUTO) 1.3 X10^3/uL (1.3-2.9); LYMPHOCYTES % (AUTO) 18.2 % (21.0-51.0); MEAN CORPUSCULAR HEMOGLOBIN 24.2 pg (27.0-34.0); MEAN CORPUSCULAR HGB CONC 31.7 g/dL (33.0-35.0); MEAN CORPUSCULAR VOLUME 76.2 fL (80.0-100.0); MEAN PLATELET VOLUME 6.4 fL (7.4-11.0); MONOCYTES # (AUTO) 0.4 x10^3/uL (0.3-0.8); MONOCYTES % (AUTO) 6.1 % (0.0-13.0); NEUTROPHILS # (AUTO) 5.1 x10^3/uL (2.2-4.8); NEUTROPHILS % (AUTO) 71.3 % (42.0-75.0); PLATELET COUNT 398 X10^3/uL (150.0-450.0); WHITE BLOOD COUNT 7.2 X10^3/uL (3.6-10.0)
[2023-06-13 05:01] LABS: ALANINE AMINOTRANSFERASE 54 Units/L (12-78); ALBUMIN 1.2 g/dL (3.4-5.0); ALKALINE PHOSPHATASE 109 Units/L (46-116); AMYLASE 14 Units/L (25-115); ASPARTATE AMINO TRANSFERASE 41 Units/L (15-37); BLOOD UREA NITROGEN 18 mg/dL (7-18); CALCIUM 8.9 mg/dL (8.5-10.1); CHLORIDE 107 mmol/L (98-107); COR CA(FOR HYPOALB) 11.1 mg/dL (8.5-10.1); COR NA(FOR HYPERGLY) 141 mmol/L (136-145); CREATININE 0.86 mg/dL (0.70-1.30); GLUCOSE 137 mg/dL (65-99); LIPASE 10 Units/L (16-77); MAGNESIUM 1.9 mg/dL (2.0-2.9); POTASSIUM 3.9 mmol/L (3.5-5.1); SODIUM 140 mmol/L (136-145); TOTAL PROTEIN 6.4 g/dL (6.4-8.2); eGFR NON BLACK RACES > 60 (>60)
[2023-06-13] MEDS: PROTONIX INJ 40 MG VIAL IVP SCH ×2 (09:48→20:59)
[2023-06-13] MEDS: PEPCID 20 MG VIAL 20 MG in NS 50 ML IV 50 ML IV SCH ×2 (09:48→20:59)
[2023-06-13] MEDS: PLETAL PO SCH ×2 (09:49→20:58)
[2023-06-13] MEDS: COREG TAB 12.5 MG PO SCH ×2 (09:49→20:52)
[2023-06-13] MEDS: KEPPRA TAB 500 MG PO SCH ×2 (09:49→20:58)
[2023-06-13] MEDS: CLARITIN PO SCH (09:49)
[2023-06-13] MEDS: LEVAQUIN PREMIX IV 500 MG 500 MG/100 ML BAG IV SCH (09:51)
[2023-06-13] MEDS: NORVASC TAB 5 MG PO SCH (09:57)
[2023-06-13] MEDS: NIACINAMIDE 500 MG PO SCH ×3 (09:57→21:10)
[2023-06-13] MEDS: NS + KCL 20 MEQ/L 1,000 ML with MAGNESIUM SULFATE 50% INJ VIAL 1 G IV SCH ×2 (09:59)
[2023-06-13] MEDS: ALBUMIN HUMAN 25%- 100 ML 100 ML IV SCH (09:59)
[2023-06-13] MEDS: COZAAR PO SCH ×2 (10:01→20:54)
[2023-06-13] MEDS: SOLIFENACIN 10 MG PO SCH ×2 (10:03→10:20)
[2023-06-13] MEDS: VITAMIN B-12 PO SCH (10:20)
--- NOTE | 2023-06-13 13:16 | PCM.PROG ---
Progress Note - Progress Note for Day of Date of Exam: 06/13/23 - Subjective Subjective: IS CURRENTLY INPATIENT STATUS FOR TREATMENT OF ACUTE PANCREATITIS, ACUTE BRONCHITIS, HYPOXIA, AND ANEMIA. HE HAS A PMH OF ANXIETY, CAD, DM II, HTN, MALIGNANT BRAIN TUMOR, LUNG CANCER, PANCREATITIS. TODAY, HE IS LYING IN BED WITH EYES CLOSED ON MORNING ROUNDS. HE OPENS EYES TO VERBAL STIMULI. HE RESPONDS VERBALLY AND IS ABLE TO FOLLOW SIMPLE COMMANDS. HIS SPOUSE IS AT BEDSIDE AND REPORTS THAT HE CONTINUES WITH GENERALIZED WEAKNESS AND CONTINUES TO COMPLAIN OF DIFFUSE ABDOMINAL PAIN AT TIMES. UPON EXAMINATION, HEART IS REGULAR IN RATE AND RHYTHM. BILATERAL LUNGS ARE NOTED WITH DIMINISHED LUNG SOUNDS THROUGHOUT. ABDOMEN DOES APPEAR TO BE SWOLLEN. HE COMPLAINS OF TENDERNESS WITH PALPATION. NORMAL BOWEL SOUNDS NOTED IN ALL QUADRANTS. TRACE LOWER EXTREMITY EDEMA NOTED. HIS VITALS THIS MORNING ARE: 97.6-77-28-97%-114/59. LABS WERE OBTAINED. WBC 7.2, RBC 3.00, HGB 7.3, HCT 22.8, PLT COUNT 398, SODIUM 140, POTASSIUM 3.9, CHLORIDE 107, BUN 18, CREATININE 0.86, GLUCOSE 137, CALCIUM 8.9, MAGNESIUM 1.9, TOTAL BILI 0.40, AST 41, ALT 54, ALK PHOS 109, TOTAL PROTEIN 6.4, ALBUMIN 1.2, AMYLASE 14, LIPASE 10. BLOOD CULTURES ARE PENDING. HE IS CURRENTLY RECEIVING NORMAL SALINE WITH POTASSIUM AND MAGNESIUM AT KVO, ALBUMIN 25% IV DAILY, LEVAQUIN 500MG IV DAILY, MORPHINE SULFATE 2MG IV Q4H PRN, PEPCID 20MG IV BID, PROTONIX 40MG IV BID. WE WILL RESUME HIS HOME MEDICATIONS OF TRAZODONE, OXYCODONE, LOSARTAN, LORATADINE, DULOXETINE, LIPITOR, ELIQUIS, LEVETIRACETAM, SOLIFENACIN, VITAMIN B12, SIMETHICONE, CILOSTAZOL, NORVASC, CARVEDILOL, DULOXETINE, NIACINAMIDE, AND QUETIAPINE. WE WILL ADVANCE HIM TO A CLEAR LIQUID DIET TODAY. WE PLAN TO REPEAT HIS ABDOMEN/PELVIS CT OR POSSIBLY A MRI ON SUNDAY. OTHERWISE, WE WILL FOLLOW-UP WITH AM LABS AND CONTINUE TO MONITOR. TIME SPENT ON CLINICAL ASSESSMENT, REVIEWING LABS AND IMAGING, DECISION MAKING, AND DOCUMENTATION GREATER THAN 45 MINUTES. - Past Medical Family Social History Past Med/Fam/Surg Hx: No changes since H&P Allergies: Allergies codeine Allergy (Verified 10/10/21 16:28) meperidine [From Demerol] Allergy (Verified 10/10/21 16:28) Penicillins Allergy (Verified 07/11/22 09:55) - Review of Systems ROS: No change since H&P - Vital Signs and I&O's Vital Signs: Vital Signs Temperature 97.6 F Pulse Rate 75 Pulse Rate 78 Pulse Rate 76 Pulse Rate 77 Pulse Rate 77 Pulse Rate 76 Pulse Rate 76 Pulse Rate 77 Pulse Rate 77 Pulse Rate 76 Pulse Rate 80 Respiratory Rate 27 Respiratory Rate 15 Respiratory Rate 30 Respiratory Rate 28 Respiratory Rate 28 Respiratory Rate 28 Respiratory Rate 28 Respiratory Rate 29 Respiratory Rate 30 Respiratory Rate 26 Respiratory Rate 25 Blood Pressure 131/66 Blood Pressure 121/59 Blood Pressure 131/60 Blood Pressure 128/60 Blood Pressure 114/59 Blood Pressure 130/58 Blood Pressure 123/58 Blood Pressure 123/58 Blood Pressure 133/60 Blood Pressure 133/60 O2 Sat by Pulse Oximetry 99 O2 Sat by Pulse Oximetry 100 O2 Sat by Pulse Oximetry 97 O2 Sat by Pulse Oximetry 97 O2 Sat by Pulse Oximetry 97 O2 Sat by Pulse Oximetry 98 O2 Sat by Pulse Oximetry 97 O2 Sat by Pulse Oximetry 98 O2 Sat by Pulse Oximetry 98 O2 Sat by Pulse Oximetry 97 O2 Sat by Pulse Oximetry 100 Intake and Output: Intake & Output 06/11/23 06/12/23 06/13/23 06/14/23 11:59 11:59 11:59 11:59 Intake Total 457 / 457 803 / 803 Balance 457 / 457 803 / 803 - Physical Exam Oriented: Person Eyes: Normal Ear: Normal Nose: Normal Throat: Normal Cardiovascular: Normal : Normal Auscultation: Bowel Sounds: Normal Palpation: Normal Tenderness: Diffuse, Mild Skin: Normal Musculoskeletal: Normal Psychiatric: Normal Mood Description: Calm Affect: Flat Speech Pattern: Unclear, Delayed, Slurred - Laboratory and Diagnostics Result Diagrams: 06/13/23 04:04 06/13/23 04:00 Labs: 06/11/23 15:49 Blood Blood Culture - Preliminary 06/11/23 15:48 Blood Blood Culture - Preliminary Laboratory WBC 7.2 X10^3/uL (3.6-10.0) 06/13/23 04:04 RBC 3.00 X10^6/uL (4.7-6.0) L 06/13/23 04:04 Hgb 7.3 g/dL (13.5-18.0) L 06/13/23 04:04 Hct 22.8 % (42.0-54.0) L 06/13/23 04:04 MCV 76.2 fL (80.0-100.0) L 06/13/23 04:04 MCH 24.2 pg (27.0-34.0) L 06/13/23 04:04 MCHC 31.7 g/dL (33.0-35.0) L 06/13/23 04:04 RDW 19.0 % (11.6-16.5) H 06/13/23 04:04 Plt Count 398 X10^3/uL (150.0-450.0) 06/13/23 04:04 MPV 6.4 fL (7.4-11.0) L 06/13/23 04:04 Neut % (Auto) 71.3 % (42.0-75.0) 06/13/23 04:04 Lymph % (Auto) 18.2 % (21.0-51.0) L 06/13/23 04:04 [place] % (Auto) 6.1 % (0.0-13.0) 06/13/23 04:04 Eos % (Auto) 2.0 % (0.9-2.9) 06/13/23 04:04 Baso % (Auto) 2.4 % (0.2-1.0) H 06/13/23 04:04 Neut # (Auto) 5.1 x10^3/uL (2.2-4.8) H 06/13/23 04:04 Lymph # (Auto) 1.3 X10^3/uL (1.3-2.9) 06/13/23 04:04 [place] # (Auto) 0.4 x10^3/uL (0.3-0.8) 06/13/23 04:04 Eos # (Auto) 0.1 x10^3/uL (0.0-0.2) 06/13/23 04:04 Baso # (Auto) 0.2 X10^3/uL (0.0-0.1) H 06/13/23 04:04 Absolute Nucleated RBC 0.1 /100WBC 06/13/23 04:04 Sodium 140 mmol/L (136-145) 06/13/23 04:00 Corrected Sodium 141 mmol/L (136-145) 06/13/23 04:00 Potassium 3.9 mmol/L (3.5-5.1) 06/13/23 04:00 Chloride 107 mmol/L (98-107) 06/13/23 04:00 Carbon Dioxide 29.0 mmol/L (21-32) 06/13/23 04:00 BUN 18 mg/dL (7-18) 06/13/23 04:00 Creatinine 0.86 mg/dL (0.70-1.30) 06/13/23 04:00 Est GFR (MDRD) Af Amer > 60 (>60) 06/13/23 04:00 Est GFR (MDRD) Non-Af > 60 (>60) 06/13/23 04:00 Glucose 137 mg/dL (65-99) H 06/13/23 04:00 POC Glucose (mg/dL) 142 mg/dL (65-99) H 06/13/23 11:14 Lactic Acid 0.9 mmol/L (0.4-2.0) 06/11/23 15:48 Calcium 8.9 mg/dL (8.5-10.1) 06/13/23 04:00 Corrected Calcium 11.1 mg/dL (8.5-10.1) H 06/13/23 04:00 Magnesium 1.9 mg/dL (2.0-2.9) L 06/13/23 04:00 Total Bilirubin 0.40 mg/dL (0.2-1.0) 06/13/23 04:00 AST 41 Units/L (15-37) H 06/13/23 04:00 ALT 54 Units/L (12-78) 06/13/23 04:00 Alkaline Phosphatase 109 Units/L (46-116) 06/13/23 04:00 Ammonia < 10 umol/L (11-32) L 06/11/23 18:25 Creatine Kinase 34 Units/L (39-308) L 06/11/23 15:49 Troponin I High Sens 9.0 ng/L (4.0-60.0) 06/11/23 15:49 Total Protein 6.4 g/dL (6.4-8.2) 06/13/23 04:00 Albumin 1.2 g/dL (3.4-5.0) L 06/13/23 04:00 Globulin 5.2 g/dL (2.5-4.5) H 06/13/23 04:00 Albumin/Globulin Ratio 0.2 Ratio (1.1-2.1) L 06/13/23 04:00 Amylase 14 Units/L (25-115) L 06/13/23 04:00 Lipase 10 Units/L (16-77) L 06/13/23 04:00 - Plan (1) Acute pancreatitis Status: Acute Qualifiers: Pancreatitis type: unspecified pancreatitis type Acute pancreatitis complication: unspecified Qualified Code(s): K85.90 - Acute pancreatitis without necrosis or infection, unspecified Plan: NORMAL SALINE WITH POTASSIUM AND MAGNESIUM AT KVO, ALBUMIN 25% IV DAILY, LEVAQUIN 500MG IV DAILY, MORPHINE SULFATE 2MG IV Q4H PRN, PEPCID 20MG IV BID, PROTONIX 40MG IV BID. RESUME HOME MEDS (2) Bronchitis Status: Acute (3) Hypoxia Status: Acute Plan: SUPPLEMENTAL OXYGEN (4) Anemia Status: Acute Qualifiers: Anemia type: unspecified type Qualified Code(s): D64.9 - Anemia, uns pecified (5) Hypoalbuminemia Status: Acute (6) HTN (hypertension) Status: Chronic Qualifiers: Hypertension type: primary hypertension Qualified Code(s): I10 - Essential (primary) hypertension Plan: RESUME HOME MEDS (7) GERD (gastroesophageal reflux disease) Status: Chronic Qualifiers: Esophagitis presence: esophagitis presence not specified Qualified Code(s): K21.9 - Gastro-esophageal reflux disease without esophagitis Plan: RESUME HOME MEDS (8) Hyperlipidemia Status: Chronic Qualifiers: Hyperlipidemia type: mixed hyperlipidemia Qualified Code(s): E78.2 - Mixed hyperlipidemia Plan: RESUME HOME MEDS (9) Major depressive disorder Status: Chronic Qualifiers: Major depression recurrence: recurrent Active/Remission status: remission status unspecified Qualified Code(s): F33.9 - Major depressive disorder, recurrent, unspecified Plan: RESUME HOME MEDS
[2023-06-13] MEDS: ROXICODONE TAB 5 MG PO PRN (15:42)
[2023-06-13] MEDS: CYMBALTA PO SCH (20:54)
[2023-06-13] MEDS: LIPITOR TAB 20 MG PO SCH (20:58)
[2023-06-13] MEDS: DESYREL PO SCH (20:59)
[2023-06-14 04:39] LABS: BASOPHILS % (AUTO) 0.3 % (0.2-1.0); EOSINOPHILS # (AUTO) 0.1 x10^3/uL (0.0-0.2); EOSINOPHILS % (AUTO) 1.4 % (0.9-2.9); HEMATOCRIT 22.6 % (42.0-54.0); HEMOGLOBIN 7.2 g/dL (13.5-18.0); LYMPHOCYTES # (AUTO) 1.4 X10^3/uL (1.3-2.9); MEAN CORPUSCULAR HEMOGLOBIN 24.1 pg (27.0-34.0); MEAN CORPUSCULAR HGB CONC 31.6 g/dL (33.0-35.0); MEAN CORPUSCULAR VOLUME 76.3 fL (80.0-100.0); MEAN PLATELET VOLUME 6.3 fL (7.4-11.0); MONOCYTES # (AUTO) 0.5 x10^3/uL (0.3-0.8); MONOCYTES % (AUTO) 6.4 % (0.0-13.0); NEUTROPHILS # (AUTO) 5.5 x10^3/uL (2.2-4.8); NEUTROPHILS % (AUTO) 72.9 % (42.0-75.0); PLATELET COUNT 372 X10^3/uL (150.0-450.0); RED BLOOD COUNT 2.97 X10^6/uL (4.7-6.0); RED CELL DISTRIBUTION WIDTH 18.6 % (11.6-16.5); WHITE BLOOD COUNT 7.5 X10^3/uL (3.6-10.0)
[2023-06-14 04:51] LABS: ALANINE AMINOTRANSFERASE 40 Units/L (12-78); ALBUMIN 1.5 g/dL (3.4-5.0); ALKALINE PHOSPHATASE 100 Units/L (46-116); ASPARTATE AMINO TRANSFERASE 27 Units/L (15-37); BLOOD UREA NITROGEN 17 mg/dL (7-18); CARBON DIOXIDE 28.4 mmol/L (21-32); CHLORIDE 108 mmol/L (98-107); COR NA(FOR HYPERGLY) 142 mmol/L (136-145); CREATININE 0.92 mg/dL (0.70-1.30); GLUCOSE 132 mg/dL (65-99); POTASSIUM 3.5 mmol/L (3.5-5.1); SODIUM 141 mmol/L (136-145); TOTAL PROTEIN 6.5 g/dL (6.4-8.2); eGFR NON BLACK RACES > 60 (>60)
[2023-06-14] MEDS: CLARITIN PO SCH (08:48)
[2023-06-14] MEDS: PLETAL PO SCH ×2 (08:48→20:34)
[2023-06-14] MEDS: COREG TAB 12.5 MG PO SCH ×2 (08:49→20:34)
[2023-06-14] MEDS: SOLIFENACIN 10 MG PO SCH (08:50)
[2023-06-14] MEDS: KEPPRA TAB 500 MG PO SCH ×2 (08:50→20:34)
[2023-06-14] MEDS: NIACINAMIDE 500 MG PO SCH ×2 (08:50→20:31)
[2023-06-14] MEDS: COZAAR PO SCH ×2 (08:50→20:37)
[2023-06-14] MEDS: PEPCID 20 MG VIAL 20 MG in NS 50 ML IV 50 ML IV SCH ×2 (08:51→20:33)
[2023-06-14] MEDS: NORVASC TAB 5 MG PO SCH (08:52)
[2023-06-14] MEDS: PROTONIX INJ 40 MG VIAL IVP SCH ×2 (08:53→20:35)
[2023-06-14] MEDS: VITAMIN B-12 PO SCH (08:58)
[2023-06-14] MEDS ORDERED: NS + KCL 40 MEQ/L 1,000 ML IV SCH (09:00)
[2023-06-14] MEDS ORDERED: CONSULT PHARMACY - POTASSIUM & MAGNESIUM XX SCH (09:00)
[2023-06-14] MEDS: ALBUMIN HUMAN 25%- 100 ML 100 ML IV SCH (09:44)
[2023-06-14] MEDS: LEVAQUIN PREMIX IV 500 MG 500 MG/100 ML BAG IV SCH (11:54)
[2023-06-14] MEDS: NovoLIN R (or HumuLIN R) SUBCUT PRN (12:27)
[2023-06-14] MEDS: MORPHINE SULFATE INJ 2 MG INJ IVP PRN (18:43)
[2023-06-14] MEDS: SNACK - Diabetic Appropriate PO SCH (20:10)
[2023-06-14] MEDS: LIPITOR TAB 20 MG PO SCH (20:34)
[2023-06-14] MEDS: DESYREL PO SCH (20:35)
[2023-06-14] MEDS: CYMBALTA PO SCH (20:35)
--- NOTE | 2023-06-14 21:57 | PCM.PROG ---
Progress Note - Progress Note for Day of Date of Exam: 06/14/23 - Subjective Subjective: IS CURRENTLY INPATIENT STATUS FOR TREATMENT OF ACUTE PANCREATITIS, ACUTE BRONCHITIS, HYPOXIA, AND ANEMIA. HE HAS A PMH OF ANXIETY, CAD, DM II, HTN, MALIGNANT BRAIN TUMOR, LUNG CANCER, PANCREATITIS. TODAY, HE IS LYING IN BED WITH EYES CLOSED ON MORNING ROUNDS. HE OPENS EYES TO VERBAL STIMULI. HE RESPONDS VERBALLY AND IS ABLE TO FOLLOW SIMPLE COMMANDS. HIS SPOUSE IS AT BEDSIDE AND REPORTS THAT HE CONTINUES WITH GENERALIZED WEAKNESS AND CONTINUES TO COMPLAIN OF DIFFUSE ABDOMINAL PAIN AT TIMES. UPON EXAMINATION, HEART IS REGULAR IN RATE AND RHYTHM. BILATERAL LUNGS ARE NOTED WITH DIMINISHED LUNG SOUNDS THROUGHOUT. ABDOMEN DOES APPEAR TO BE SWOLLEN. HE COMPLAINS OF TENDERNESS WITH PALPATION. NORMAL BOWEL SOUNDS NOTED IN ALL QUADRANTS. TRACE LOWER EXTREMITY EDEMA NOTED. HIS VITALS THIS MORNING ARE: 98.0-74-25-92%-121/58. LABS WERE OBTAINED. WBC 7.5, RBC 2.97, HGB 7.2, HCT 22.6, PLT COUNT 372, SODIUM 141, POTASSIUM 3.5, CHLORIDE 108, BUN 17, CREATININE 0.92, GLUCOSE 132, CALCIUM 9.0, MAGNESIUM 2.1, TOTAL BILI 0.40, AST 27, ALT 40, ALK PHOS 100, TOTAL PROTEIN 6.5, ALBUMIN 1.5. BLOOD CULTURES ARE PENDING. HE IS CURRENTLY RECEIVING NORMAL SALINE WITH POTASSIUM AT KVO, ALBUMIN 25% IV DAILY, LEVAQUIN 500MG IV DAILY, MORPHINE SULFATE 2MG IV Q4H PRN, PEPCID 20MG IV BID, PROTONIX 40MG IV BID. WE WILL RESUME HIS HOME MEDICATIONS OF TRAZODONE, OXYCODONE, LOSARTAN, LORATADINE, DULOXETINE, LIPITOR, ELIQUIS, LEVETIRACETAM, SOLIFENACIN, VITAMIN B12, SIMETHICONE, CILOSTAZOL, NORVASC, CARVEDILOL, DULOXETINE, NIACINAMIDE, AND QUETIAPINE. WE WILL ADVANCE HIM TO A CLEAR LIQUID DIET TODAY. WE PLAN TO OBTAIN ABDOMEN/PELVIS MRI WITH AND WITHOUT CONTRAST TOMORROW. OTHERWISE, WE WILL F OLLOW-UP WITH AM LABS AND CONTINUE TO MONITOR. TIME SPENT ON CLINICAL ASSESSMENT, REVIEWING LABS AND IMAGING, DECISION MAKING, AND DOCUMENTATION GREATER THAN 45 MINUTES. - Past Medical Family Social History Past Med/Fam/Surg Hx: No changes since H&P Allergies: Allergies codeine Allergy (Verified 10/10/21 16:28) meperidine [From Demerol] Allergy (Verified 10/10/21 16:28) Penicillins Allergy (Verified 07/11/22 09:55) - Review of Systems ROS: No change since H&P - Vital Signs and I&O's Vital Signs: Vital Signs Temperature 97.9 F Temperature 99.0 F Pulse Rate 87 Pulse Rate 83 Pulse Rate 80 Pulse Rate 85 Pulse Rate 80 Pulse Rate 79 Pulse Rate 80 Pulse Rate 79 Respiratory Rate 27 Respiratory Rate 18 Respiratory Rate 24 Respiratory Rate 24 Respiratory Rate 20 Respiratory Rate 24 Respiratory Rate 26 Respiratory Rate 27 Respiratory Rate 26 Respiratory Rate 28 Blood Pressure 130/61 Blood Pressure 156/70 Blood Pressure 147/68 Blood Pressure 129/60 Blood Pressure 123/61 Blood Pressure 123/59 Blood Pressure 113/57 Blood Pressure 133/61 O2 Sat by Pulse Oximetry 92 O2 Sat by Pulse Oximetry 96 O2 Sat by Pulse Oximetry 94 O2 Sat by Pulse Oximetry 95 O2 Sat by Pulse Oximetry 94 O2 Sat by Pulse Oximetry 93 O2 Sat by Pulse Oximetry 91 O2 Sat by Pulse Oximetry 92 Intake and Output: Intake & Output 06/12/23 06/13/23 06/14/23 06/15/23 11:59 11:59 11:59 11:59 Intake Total 457 / 457 803 / 803 2606 / 2606 455 / 455 Balance 457 / 457 803 / 803 2606 / 2606 455 / 455 - Physical Exam Oriented: Person Eyes: Normal Ear: Normal Nose: Normal Throat: Normal Respiratory: Diminished Cardiovascular: Normal : Normal Auscultation: Bowel Sounds: Normal Palpation: Normal Tenderness: Diffuse, Mild Skin: Normal Musculoskeletal: Normal Psychiatric: Normal Mood Description: Calm Affect: Flat Speech Pattern: Unclear, Delayed, Slurred - Laboratory and Diagnostics Result Diagrams: 06/14/23 04:05 06/14/23 04:05 Labs: 06/11/23 15:49 Blood Blood Culture - Preliminary 06/11/23 15:48 Blood Blood Culture - Preliminary Laboratory WBC 7.5 X10^3/uL (3.6-10.0) 06/14/23 04:05 RBC 2.97 X10^6/uL (4.7-6.0) L 06/14/23 04:05 Hgb 7.2 g/dL (13.5-18.0) L 06/14/23 04:05 Hct 22.6 % (42.0-54.0) L 06/14/23 04:05 MCV 76.3 fL (80.0-100.0) L 06/14/23 04:05 MCH 24.1 pg (27.0-34.0) L 06/14/23 04:05 MCHC 31.6 g/dL (33.0-35.0) L 06/14/23 04:05 RDW 18.6 % (11.6-16.5) H 06/14/23 04:05 Plt Count 372 X10^3/uL (150.0-450.0) 06/14/23 04:05 MPV 6.3 fL (7.4-11.0) L 06/14/23 04:05 Neut % (Auto) 72.9 % (42.0-75.0) 06/14/23 04:05 Lymph % (Auto) 19.0 % (21.0-51.0) L 06/14/23 04:05 [place] % (Auto) 6.4 % (0.0-13.0) 06/14/23 04:05 Eos % (Auto) 1.4 % (0.9-2.9) 06/14/23 04:05 Baso % (Auto) 0.3 % (0.2-1.0) 06/14/23 04:05 Neut # (Auto) 5.5 x10^3/uL (2.2-4.8) H 06/14/23 04:05 Lymph # (Auto) 1.4 X10^3/uL (1.3-2.9) 06/14/23 04:05 [place] # (Auto) 0.5 x10^3/uL (0.3-0.8) 06/14/23 04:05 Eos # (Auto) 0.1 x10^3/uL (0.0-0.2) 06/14/23 04:05 Baso # (Auto) 0.0 X10^3/uL (0.0-0.1) 06/14/23 04:05 Absolute Nucleated RBC 0.0 /100WBC 06/14/23 04:05 Sodium 141 mmol/L (136-145) 06/14/23 04:05 Corrected Sodium 142 mmol/L (136-145) 06/14/23 04:05 Potassium 3.5 mmol/L (3.5-5.1) 06/14/23 04:05 Chloride 108 mmol/L (98-107) H 06/14/23 04:05 Carbon Dioxide 28.4 mmol/L (21-32) 06/14/23 04:05 BUN 17 mg/dL (7-18) 06/14/23 04:05 Creatinine 0.92 mg/dL (0.70-1.30) 06/14/23 04:05 Est GFR (MDRD) Af Amer > 60 (>60) 06/14/23 04:05 Est GFR (MDRD) Non-Af > 60 (>60) 06/14/23 04:05 Glucose 132 mg/dL (65-99) H 06/14/23 04:05 POC Glucose (mg/dL) 136 mg/dL (65-99) H 06/14/23 21:01 Lactic Acid 0.9 mmol/L (0.4-2.0) 06/11/23 15:48 Calcium 9.0 mg/dL (8.5-10.1) 06/14/23 04:05 Corrected Calcium 11.0 mg/dL (8.5-10.1) H 06/14/23 04:05 Magnesium 2.1 mg/dL (2.0-2.9) 06/14/23 04:05 Total Bilirubin 0.40 mg/dL (0.2-1.0) 06/14/23 04:05 AST 27 Units/L (15-37) 06/14/23 04:05 ALT 40 Units/L (12-78) 06/14/23 04:05 Alkaline Phosphatase 100 Units/L (46-116) 06/14/23 04:05 Ammonia < 10 umol/L (11-32) L 06/11/23 18:25 Creatine Kinase 34 Units/L (39-308) L 06/11/23 15:49 Troponin I High Sens 9.0 ng/L (4.0-60.0) 06/11/23 15:49 Total Protein 6.5 g/dL (6.4-8.2) 06/14/23 04:05 Albumin 1.5 g/dL (3.4-5.0) L 06/14/23 04:05 Globulin 5.0 g/dL (2.5-4.5) H 06/14/23 04:05 Albumin/Globulin Ratio 0.3 Ratio (1.1-2.1) L 06/14/23 04:05 Amylase 14 Units/L (25-115) L 06/13/23 04:00 Lipase 10 Units/L (16-77) L 06/13/23 04:00 - Plan (1) Acute pancreatitis Status: Acute Qualifiers: Pancreatitis type: unspecified pancreatitis type Acute pancreatitis complication: unspecified Qualified Code(s): K85.90 - Acute pancreatitis without necrosis or infection, unspecified Plan: NORMAL SALINE WITH POTASIUM AT KVO, ALBUMIN 25% IV DAILY, LEVAQUIN 500MG IV DAILY, MORPHINE SULFATE 2MG IV Q4H PRN, PEPCID 20MG IV BID, PROTONIX 40MG IV BID. RESUME HOME MEDS (2) Bronchitis Status: Acute (3) Hypoxia Status: Acute Plan: SUPPLEMENTAL OXYGEN (4) Anemia Status: Acute Qualifiers: Anemia type: unspecified type Qualified Code(s): D64.9 - Anemia, unsp ecified (5) Hypoalbuminemia Status: Acute (6) HTN (hypertension) Status: Chronic Qualifiers: Hypertension type: primary hypertension Qualified Code(s): I10 - Essential (primary) hypertension Plan: RESUME HOME MEDS (7) GERD (gastroesophageal reflux disease) Status: Chronic Qualifiers: Esophagitis presence: esophagitis presence not specified Qualified Code(s): K21.9 - Gastro-esophageal reflux disease without esophagitis Plan: RESUME HOME MEDS (8) Hyperlipidemia Status: Chronic Qualifiers: Hyperlipidemia type: mixed hyperlipidemia Qualified Code(s): E78.2 - Mixed hyperlipidemia Plan: RESUME HOME MEDS (9) Major depressive disorder Status: Chronic Qualifiers: Major depression recurrence: recurrent Active/Remission status: remission status unspecified Qualified Code(s): F33.9 - Major depressive disorder, recurrent, unspecified Plan: RESUME HOME MEDS
[2023-06-15] MEDS: ROXICODONE TAB 5 MG PO PRN ×2 (01:11→14:38)
[2023-06-15 05:25] LABS: BASOPHILS % (AUTO) 0.2 % (0.2-1.0); EOSINOPHILS # (AUTO) 0.1 x10^3/uL (0.0-0.2); EOSINOPHILS % (AUTO) 1.4 % (0.9-2.9); HEMATOCRIT 22.4 % (42.0-54.0); HEMOGLOBIN 7.1 g/dL (13.5-18.0); LYMPHOCYTES # (AUTO) 1.3 X10^3/uL (1.3-2.9); LYMPHOCYTES % (AUTO) 16.9 % (21.0-51.0); MEAN CORPUSCULAR HEMOGLOBIN 24.2 pg (27.0-34.0); MEAN CORPUSCULAR HGB CONC 31.7 g/dL (33.0-35.0); MEAN CORPUSCULAR VOLUME 76.2 fL (80.0-100.0); MEAN PLATELET VOLUME 6.5 fL (7.4-11.0); MONOCYTES # (AUTO) 0.4 x10^3/uL (0.3-0.8); MONOCYTES % (AUTO) 5.6 % (0.0-13.0); NEUTROPHILS # (AUTO) 5.7 x10^3/uL (2.2-4.8); NEUTROPHILS % (AUTO) 75.9 % (42.0-75.0); PLATELET COUNT 377 X10^3/uL (150.0-450.0); RED BLOOD COUNT 2.94 X10^6/uL (4.7-6.0); RED CELL DISTRIBUTION WIDTH 19.1 % (11.6-16.5); WHITE BLOOD COUNT 7.5 X10^3/uL (3.6-10.0)
[2023-06-15 05:41] LABS: ALANINE AMINOTRANSFERASE 36 Units/L (12-78); ALBUMIN 1.6 g/dL (3.4-5.0); ALKALINE PHOSPHATASE 94 Units/L (46-116); ASPARTATE AMINO TRANSFERASE 22 Units/L (15-37); BLOOD UREA NITROGEN 14 mg/dL (7-18); CARBON DIOXIDE 26.7 mmol/L (21-32); CHLORIDE 109 mmol/L (98-107); COR CA(FOR HYPOALB) 10.9 mg/dL (8.5-10.1); COR NA(FOR HYPERGLY) 143 mmol/L (136-145); CREATININE 0.81 mg/dL (0.70-1.30); GLUCOSE 146 mg/dL (65-99); POTASSIUM 3.7 mmol/L (3.5-5.1); SODIUM 142 mmol/L (136-145); TOTAL PROTEIN 6.6 g/dL (6.4-8.2); eGFR NON BLACK RACES > 60 (>60)
[2023-06-15] MEDS ORDERED: CONSULT PHARMACY - POTASSIUM & MAGNESIUM XX SCH (07:00)
[2023-06-15] MEDS: PROTONIX INJ 40 MG VIAL IVP SCH ×2 (08:58→20:42)
[2023-06-15] MEDS: PEPCID 20 MG VIAL 20 MG in NS 50 ML IV 50 ML IV SCH ×2 (09:01→20:42)
[2023-06-15] MEDS: LEVAQUIN PREMIX IV 500 MG 500 MG/100 ML BAG IV SCH (09:03)
[2023-06-15] MEDS: ALBUMIN HUMAN 25%- 100 ML 100 ML IV SCH (09:04)
[2023-06-15] MEDS: COREG TAB 12.5 MG PO SCH ×3 (09:10→20:44)
[2023-06-15] MEDS: CLARITIN PO SCH (09:10)
[2023-06-15] MEDS: K-DUR TAB 20 MEQ PO SCH ×2 (09:10→09:58)
[2023-06-15] MEDS: COZAAR PO SCH ×3 (09:10→20:44)
[2023-06-15] MEDS: KEPPRA TAB 500 MG PO SCH ×3 (09:11→20:42)
[2023-06-15] MEDS: NORVASC TAB 5 MG PO SCH ×2 (09:11→10:07)
[2023-06-15] MEDS: NIACINAMIDE 500 MG PO SCH ×2 (09:11→21:18)
[2023-06-15] MEDS: VITAMIN B-12 PO SCH (09:12)
[2023-06-15] MEDS: PLETAL PO SCH ×2 (09:12→20:43)
[2023-06-15] MEDS: SOLIFENACIN 10 MG PO SCH (09:12)
[2023-06-15] MEDS: NS + KCL 40 MEQ/L 1,000 ML with MAGNESIUM SULFATE 50% INJ VIAL 2 G IV SCH ×2 (11:30)
[2023-06-15] MEDS ORDERED: NS 100 ML IV 100 ML ONE (13:03)
[2023-06-15] MEDS ORDERED: OMNIPAQUE 350 mg/mL 100 mL BTL 100 ML ONE (13:03)
--- NOTE | 2023-06-15 13:13 | PCM.PROG ---
Progress Note - Progress Note for Day of Date of Exam: 06/15/23 - Subjective Subjective: IS CURRENTLY INPATIENT STATUS FOR TREATMENT OF ACUTE PANCREATITIS, ACUTE BRONCHITIS, HYPOXIA, AND ANEMIA. HE HAS A PMH OF ANXIETY, CAD, DM II, HTN, MALIGNANT BRAIN TUMOR, LUNG CANCER, PANCREATITIS. TODAY, HE IS LYING IN BED WITH EYES CLOSED ON MORNING ROUNDS. HE OPENS EYES TO VERBAL STIMULI. HE IS DROWSY, BUT RESPONDS APPROPRIATELY AND IS ABLE TO FOLLOW SIMPLE COMMANDS. HIS SPOUSE IS AT BEDSIDE AND REPORTS THAT HE CONTINUES WITH GENERALIZED WEAKNESS. SHE REPORTS THAT HE HAS A DECREASED APPETITE. UPON EXAMINATION, HEART IS REGULAR IN RATE AND RHYTHM. BILATERAL LUNGS ARE NOTED WITH DIMINISHED LUNG SOUNDS THROUGHOUT. ABDOMEN DOES APPEAR TO BE SWOLLEN. HE COMPLAINS OF TENDERNESS WITH PALPATION. NORMAL BOWEL SOUNDS NOTED IN ALL QUADRANTS. TRACE LOWER EXTREMITY EDEMA NOTED. HIS VITALS THIS MORNING ARE: 98.0-83-26-94%-139/65. LABS WERE OBTAINED. WBC 7.5, RBC 2.94, HGB 7.1, HCT 22.4, PLT COUNT 377, SODIUM 142, POTASSIUM 3.7, CHLORIDE 109, BUN 14, CREATININE 0.81, GLUCOSE 146, CALCIUM 9.0, MAGNESIUM 1.8, TOTAL BILI 0.50, AST 22, ALT 36, ALK PHOS 94, TOTAL PROTEIN 6.6, ALBUMIN 1.6. BLOOD CULTURES ARE PENDING. HE IS CURRENTLY RECEIVING NORMAL SALINE WITH POTASSIUM AT KVO, ALBUMIN 25% IV DAILY, LEVAQUIN 500MG IV DAILY, MORPHINE SULFATE 2MG IV Q4H PRN, PEPCID 20MG IV BID, [place] OTONIX 40MG IV BID. WE WILL RESUME HIS HOME MEDICATIONS OF TRAZODONE, OXYCODONE, LOSARTAN, LORATADINE, DULOXETINE, LIPITOR, ELIQUIS, LEVETIRACETAM, SOLIFENACIN, VITAMIN B12, SIMETHICONE, CILOSTAZOL, NORVASC, CARVEDILOL, DULOXETINE, NIACINAMIDE, AND QUETIAPINE. WE WILL ADVANCE HIM TO A CLEAR LIQUID DIET TODAY. WE ATTEMPTED TO OBTAIN AN ABDOMEN MRI THIS MORNING, HOWEVER, PATIENT WAS UNABLE TO LIE STILL OR HOLD BREATH WHEN INSTRUCTED TO. WE WILL CHANGE THE MRI TO AN ABDOMEN/PELVIS CT WITH CONTRAST THIS MORNING. OTHERWISE, WE WILL FOLLOW-UP WITH AM LABS AND CONTINUE TO MONITOR. TIME SPENT ON CLINICAL ASSESSMENT, REVIEWING LABS AND IMAGING, DECISION MAKING, AND DOCUMENTATION GREATER THAN 45 MINUTES. - Past Medical Family Social History Past Med/Fam/Surg Hx: No changes since H&P Allergies: Allergies codeine Allergy (Verified 10/10/21 16:28) meperidine [From Demerol] Allergy (Verified 10/10/21 16:28) Penicillins Allergy (Verified 07/11/22 09:55) - Review of Systems ROS: No change since H&P - Vital Signs and I&O's Vital Signs: Vital Signs Temperature 98.0 F Pulse Rate 80 Pulse Rate 81 Pulse Rate 83 Pulse Rate 85 Pulse Rate 87 Pulse Rate 81 Pulse Rate 81 Pulse Rate 80 Respiratory Rate 22 Respiratory Rate 27 Respiratory Rate 26 Respiratory Rate 24 Respiratory Rate 23 Respiratory Rate 25 Respiratory Rate 24 Respiratory Rate 22 Blood Pressure 152/68 Blood Pressure 137/63 Blood Pressure 162/72 Blood Pressure 139/65 Blood Pressure 143/69 Blood Pressure 146/67 Blood Pressure 146/67 O2 Sat by Pulse Oximetry 95 O2 Sat by Pulse Oximetry 91 O2 Sat by Pulse Oximetry 96 O2 Sat by Pulse Oximetry 95 O2 Sat by Pulse Oximetry 96 O2 Sat by Pulse Oximetry 96 O2 Sat by Pulse Oximetry 95 Intake and Output: Intake & Output 06/13/23 06/14/23 06/15/23 06/16/23 11:59 11:59 11:59 11:59 Intake Total 803 / 803 2206 / 2206 1147 / 1147 Balance 803 / 803 2206 / 2206 1147 / 1147 - Physical Exam Oriented: Person Eyes: Normal Ear: Normal Nose: Normal Throat: Normal Respiratory: Diminished Cardiovascular: Normal : Normal Auscultation: Bowel Sounds: Normal Palpation: Normal Tenderness: Diffuse, Mild Skin: Normal Musculoskeletal: Normal Psychiatric: Normal Mood Description: Calm Affect: Flat Speech Pattern: Unclear, Delayed, Slurred - Laboratory and Diagnostics Result Diagrams: 06/15/23 04:21 06/15/23 04:21 Labs: 06/11/23 15:49 Blood Blood Culture - Preliminary 06/11/23 15:48 Blood Blood Culture - Preliminary Laboratory WBC 7.5 X10^3/uL (3.6-10.0) 06/15/23 04:21 RBC 2.94 X10^6/uL (4.7-6.0) L 06/15/23 04:21 Hgb 7.1 g/dL (13.5-18.0) L 06/15/23 04:21 Hct 22.4 % (42.0-54.0) L 06/15/23 04:21 MCV 76.2 fL (80.0-100.0) L 06/15/23 04:21 MCH 24.2 pg (27.0-34.0) L 06/15/23 04:21 MCHC 31.7 g/dL (33.0-35.0) L 06/15/23 04:21 RDW 19.1 % (11.6-16.5) H 06/15/23 04:21 Plt Count 377 X10^3/uL (150.0-450.0) 06/15/23 04:21 MPV 6.5 fL (7.4-11.0) L 06/15/23 04:21 Neut % (Auto) 75.9 % (42.0-75.0) H 06/15/23 04:21 Lymph % (Auto) 16.9 % (21.0-51.0) L 06/15/23 04:21 [place] % (Auto) 5.6 % (0.0-13.0) 06/15/23 04:21 Eos % (Auto) 1.4 % (0.9-2.9) 06/15/23 04:21 Baso % (Auto) 0.2 % (0.2-1.0) 06/15/23 04:21 Neut # (Auto) 5.7 x10^3/uL (2.2-4.8) H 06/15/23 04:21 Lymph # (Auto) 1.3 X10^3/uL (1.3-2.9) 06/15/23 04:21 [place] # (Auto) 0.4 x10^3/uL (0.3-0.8) 06/15/23 04:21 Eos # (Auto) 0.1 x10^3/uL (0.0-0.2) 06/15/23 04:21 Baso # (Auto) 0.0 X10^3/uL (0.0-0.1) 06/15/23 04:21 Absolute Nucleated RBC 0.0 /100WBC 06/15/23 04:21 Sodium 142 mmol/L (136-145) 06/15/23 04:21 Corrected Sodium 143 mmol/L (136-145) 06/15/23 04:21 Potassium 3.7 mmol/L (3.5-5.1) 06/15/23 04:21 Chloride 109 mmol/L (98-107) H 06/15/23 04:21 Carbon Dioxide 26.7 mmol/L (21-32) 06/15/23 04:21 BUN 14 mg/dL (7-18) 06/15/23 04:21 Creatinine 0.81 mg/dL (0.70-1.30) 06/15/23 04:21 Est GFR (MDRD) Af Amer > 60 (>60) 06/15/23 04:21 Est GFR (MDRD) Non-Af > 60 (>60) 06/15/23 04:21 Glucose 146 mg/dL (65-99) H 06/15/23 04:21 POC Glucose (mg/dL) 168 mg/dL (65-99) H 06/15/23 11:43 Lactic Acid 0.9 mmol/L (0.4-2.0) 06/11/23 15:48 Calcium 9.0 mg/dL (8.5-10.1) 06/15/23 04:21 Corrected Calcium 10.9 mg/dL (8.5-10.1) H 06/15/23 04:21 Magnesium 1.8 mg/dL (2.0-2.9) L 06/15/23 04:21 Total Bilirubin 0.50 mg/dL (0.2-1.0) 06/15/23 04:21 AST 22 Units/L (15-37) 06/15/23 04:21 ALT 36 Units/L (12-78) 06/15/23 04:21 Alkaline Phosphatase 94 Units/L (46-116) 06/15/23 04:21 Ammonia < 10 umol/L (11-32) L 06/11/23 18:25 Creatine Kinase 34 Units/L (39-308) L 06/11/23 15:49 Troponin I High Sens 9.0 ng/L (4.0-60.0) 06/11/23 15:49 Total Protein 6.6 g/dL (6.4-8.2) 06/15/23 04:21 Albumin 1.6 g/dL (3.4-5.0) L 06/15/23 04:21 Globulin 5.0 g/dL (2.5-4.5) H 06/15/23 04:21 Albumin/Globulin Ratio 0.3 Ratio (1.1-2.1) L 06/15/23 04:21 Amylase 14 Units/L (25-115) L 06/13/23 04:00 Lipase 10 Units/L (16-77) L 06/13/23 04:00 - Plan (1) Acute pancreatitis Status: Acute Qualifiers: Pancreatitis type: unspecified pancreatitis type Acute pancreatitis complication: unspecified Qualified Code(s): K85.90 - Acute pancreatitis without necrosis or infection, unspecified Plan: NORMAL SALINE WITH POTASIUM AT KVO, ALBUMIN 25% IV DAILY, LEVAQUIN 500MG IV DAILY, MORPHINE SULFATE 2MG IV Q4H PRN, PEPCID 20MG IV BID, PROTONIX 40MG IV BID. RESUME HOME MEDS (2) Bronchitis Status: Acute (3) Hypoxia Status: Acute Plan: SUPPLEMENTAL OXYGEN (4) Anemia Status: Acute Qualifiers: Anemia type: unspecified type Qualified Code(s): D64.9 - Anemia, unspecified (5) Hypoalbuminemia Status: Acute (6) HTN (hypertension) Status: Chronic Qualifiers: Hypertension type: primary hypertension Qualified Code(s): I10 - Essential (primary) hypertension Plan: RESUME HOME MEDS (7) GERD (gastroesophageal reflux disease) Status: Chronic Qualifiers: Esophagitis presence: esophagitis presence not specified Qualified Code(s): K21.9 - Gastro-esophageal reflux disease without esophagitis Plan: RESUME HOME MEDS (8) Hyperlipidemia Status: Chronic Qualifiers: Hyperlipidemia type: mixed hyperlipidemia Qualified Code(s): E78.2 - Mixed hyperlipidemia Plan: RESUME HOME MEDS (9) Major depressive disorder Status: Chronic Qualifiers: Major depression recurrence: recurrent Active/Remission status: remission status unspecified Qualified Code(s): F33.9 - Major depressive disorder, recurrent, unspecified Plan: RESUME HOME MEDS
--- NOTE | 2023-06-15 14:15 | CT ---
EXAM:ABDCMEN/PELVIS WITH CONHISTORY:Follow-up pancreatitis, massTECHNIQUE:Axial postcontrast images with coronal and sagittal reformats. Dose reduction procedures were used with mA/kv adjusted for body size.COMPARISON:06/11/2023FINDINGS:Lung bases are clear. There is some subsegmental atelectasis in the left lung base. Heart is enlarged. The liver, spleen, adrenal glands, are within normal limits. No opaque stones are present within the gallbladder. The pancreas is enlarged diffusely there may be some mild peripancreatic inflammation suggestive of early or mild acute pancreatitis. Chemical correlation recommended. The pancreas is diffusely involved with cystic lesions the largest being in the body of the pancreas and measuring 3.9 x 4.3 cm. Additional smaller cystic lesions are present in the head and in the tail. Findings could be due to multiple pseudocyst, cystic pancreatic neoplasm such as mucinous cystic neoplasm, serous cystic neoplasm, and intraductal papillary (IPMN). Correlation with MRI/MRCP is recommended for better evaluation of the pancreas and pending those results careful imaging follow-up is recommended. Kidneys are unobstructed and without definite stones. Vascular calcifications are present. No ureteral calculi are identified. Calcific atherosclerotic changes present in the nondilated abdominal aorta. No intraperitoneal or retroperitoneal lymphadenopathy of significance is identified. The appendix is not identified with absolute certainty. There are no secondary signs of appendicitis. There are no findings suggestive of enteritis, colitis, or diverticulitis. No pelvic masses, pelvic fluid, or pelvic lymphadenopathy is identified. No bladder abnormality is identified. No lytic or blastic skeletal lesions of significance are identified.IMPRESSION:Diffuse enlargement of the pancreas with a question of some mild peripancreatic inflammation. Early or mild acute pancreatitis is possible. Chemical correlation is recommended.Diffuse involvement of the pancreas with cystic disease which could represent pseudocysts benign or malignant cystic neoplasms. Some differential diagnostic possibilities given above. Correlation with MRI, MRCP is recommended as is careful imaging follow-up. A definite solid mass is not identified.CardiomegalyThere is grade 1 spondylolisthesis L5 on S1 secondary to bilateral spondylolysis at L5.THIS IS AN ELECTRONICALLY VERIFIED FINAL REPORT06/15/2023 2:12 PM - Electronically signed by Reji Damon MD
[2023-06-15] MEDS: LIPITOR TAB 20 MG PO SCH (20:42)
[2023-06-15] MEDS: CYMBALTA PO SCH (20:42)
[2023-06-15] MEDS: DESYREL PO SCH (20:43)
[2023-06-15] MEDS: SNACK - Diabetic Appropriate PO SCH (21:18)
[2023-06-16] MEDS: COREG TAB 12.5 MG PO SCH ×3 (04:29→22:55)
[2023-06-16] MEDS: COZAAR PO SCH ×3 (04:29→22:55)
[2023-06-16] MEDS: DESYREL PO SCH ×2 (04:30→22:59)
[2023-06-16] MEDS: LIPITOR TAB 20 MG PO SCH ×2 (04:30→22:58)
[2023-06-16] MEDS: KEPPRA TAB 500 MG PO SCH ×3 (04:30→22:59)
[2023-06-16] MEDS: NIACINAMIDE 500 MG PO SCH ×3 (04:30→22:58)
[2023-06-16] MEDS: CYMBALTA PO SCH ×2 (04:30→22:59)
[2023-06-16] MEDS: PLETAL PO SCH ×3 (04:31→22:56)
[2023-06-16 05:23] LABS: BASOPHILS % (AUTO) 0.3 % (0.2-1.0); EOSINOPHILS # (AUTO) 0.1 x10^3/uL (0.0-0.2); EOSINOPHILS % (AUTO) 1.7 % (0.9-2.9); HEMATOCRIT 22.9 % (42.0-54.0); HEMOGLOBIN 7.1 g/dL (13.5-18.0); LYMPHOCYTES # (AUTO) 1.3 X10^3/uL (1.3-2.9); LYMPHOCYTES % (AUTO) 17.6 % (21.0-51.0); MEAN CORPUSCULAR HEMOGLOBIN 23.7 pg (27.0-34.0); MEAN CORPUSCULAR HGB CONC 31.1 g/dL (33.0-35.0); MEAN CORPUSCULAR VOLUME 76.2 fL (80.0-100.0); MEAN PLATELET VOLUME 6.5 fL (7.4-11.0); MONOCYTES # (AUTO) 0.5 x10^3/uL (0.3-0.8); MONOCYTES % (AUTO) 6.7 % (0.0-13.0); NEUTROPHILS # (AUTO) 5.3 x10^3/uL (2.2-4.8); NEUTROPHILS % (AUTO) 73.7 % (42.0-75.0); PLATELET COUNT 332 X10^3/uL (150.0-450.0); RED BLOOD COUNT 3.01 X10^6/uL (4.7-6.0); RED CELL DISTRIBUTION WIDTH 18.5 % (11.6-16.5); WHITE BLOOD COUNT 7.2 X10^3/uL (3.6-10.0)
[2023-06-16 05:41] LABS: ALANINE AMINOTRANSFERASE 32 Units/L (12-78); ALBUMIN 1.7 g/dL (3.4-5.0); ALKALINE PHOSPHATASE 92 Units/L (46-116); AMYLASE 18 Units/L (25-115); ASPARTATE AMINO TRANSFERASE 35 Units/L (15-37); BLOOD UREA NITROGEN 11 mg/dL (7-18); CALCIUM 8.8 mg/dL (8.5-10.1); CARBON DIOXIDE 24.2 mmol/L (21-32); CHLORIDE 110 mmol/L (98-107); COR CA(FOR HYPOALB) 10.6 mg/dL (8.5-10.1); COR NA(FOR HYPERGLY) 142 mmol/L (136-145); CREATININE 0.79 mg/dL (0.70-1.30); GLUCOSE 142 mg/dL (65-99); LIPASE 10 Units/L (16-77); POTASSIUM 3.9 mmol/L (3.5-5.1); SODIUM 141 mmol/L (136-145); TOTAL PROTEIN 6.4 g/dL (6.4-8.2); eGFR NON BLACK RACES > 60 (>60)
[2023-06-16] MEDS ORDERED: CONSULT PHARMACY - POTASSIUM & MAGNESIUM XX SCH (07:00)
[2023-06-16] MEDS: PROTONIX INJ 40 MG VIAL IVP SCH ×2 (08:12→20:41)
[2023-06-16] MEDS: NORVASC TAB 5 MG PO SCH (08:13)
[2023-06-16] MEDS: ALBUMIN HUMAN 25%- 100 ML 100 ML IV SCH (08:13)
[2023-06-16] MEDS: LEVAQUIN PREMIX IV 500 MG 500 MG/100 ML BAG IV SCH (08:13)
[2023-06-16] MEDS: NS + KCL 40 MEQ/L 1,000 ML with MAGNESIUM SULFATE 50% INJ VIAL 2 G IV SCH ×6 (08:13→09:37)
[2023-06-16] MEDS: CLARITIN PO SCH (08:14)
[2023-06-16] MEDS: MAG-OX TAB PO SCH ×2 (08:14→09:26)
[2023-06-16] MEDS: PEPCID 20 MG VIAL 20 MG in NS 50 ML IV 50 ML IV SCH ×2 (08:15→20:41)
[2023-06-16] MEDS: SOLIFENACIN 10 MG PO SCH (08:17)
[2023-06-16] MEDS: VITAMIN B-12 PO SCH (08:19)
[2023-06-16] MEDS ORDERED: K-DUR TAB 20 MEQ PO SCH (09:00)
--- NOTE | 2023-06-16 09:04 | PCM.PROG ---
Progress Note - Progress Note for Day of Date of Exam: 06/16/23 - Subjective Subjective: IS CURRENTLY INPATIENT STATUS FOR TREATMENT OF ACUTE PANCREATITIS, ACUTE BRONCHITIS, HYPOXIA, AND ANEMIA. HE HAS A PMH OF ANXIETY, CAD, DM II, HTN, MALIGNANT BRAIN TUMOR, LUNG CANCER, PANCREATITIS. TODAY, HE IS ALERT, SITTING UP IN BED ON MORNING ROUNDS. HE IS ABLE TO FOLLOW SIMPLE COMMANDS AND ANSWER QUESTIONS APPROPRIATELY. HIS SPOUSE IS AT BEDSIDE AND REPORTS THAT HE CONTINUES WITH GENERALIZED WEAKNESS. SHE REPORTS THAT HE WAS VERY CONFUSED AND RESTLESS THROUGHOUT THE NIGHT. SHE ALSO REPORTS THAT HE HAS HAD A NON-PRODUCTIVE COUGH. UPON EXAMINATION, HEART IS REGULAR IN RATE AND RHYTHM. BILATERAL LUNGS ARE NOTED WITH DIMINISHED LUNG SOUNDS THROUGHOUT. ABDOMEN DOES APPEAR TO BE SWOLLEN. HE COMPLAINS OF TENDERNESS WITH PALPATION. NORMAL BOWEL SOUNDS NOTED IN ALL QUADRANTS. TRACE LOWER EXTREMITY EDEMA NOTED. HIS VITALS THIS MORNING ARE: 98.6-87-24-98%-158/72. LABS WERE OBTAINED. WBC 7.2, RBC 3.01, HGB 7.1, HCT 22.9, PLT COUNT 332, SODIUM 141, POTASSIUM 3.9, CHLORIDE 110, CARBON DIOXIDE 24.2, BUN 11, CREATININE 0.79, GLUCOSE 142, CALCIUM 8.8, MAGNESIUM 1.9, TOTAL BILI 0.50, AST 35, ALT 32, ALK PHOS 92, TOTAL PROTEIN 6.4, ALBUMIN 1.7. BLOOD CULTURES ARE PENDING. WE REPEATED AN ABDOMEN/PELVIS CT WITH CONTRAST YESTERDAY. IT REVEALED: Diffuse enlargement of the pancreas with a question of some mild peripancreatic inflammation. Early or mild acute pancreatitis is possible. Chemical correlation is recommended. Diffuse involvement of the pancreas with cystic disease which could represent pseudocysts benign or malignant cystic neoplasms. Some differential diagnostic possibilities given above. Correlation with MRI, MRCP is recommended as is careful imaging follow-up. A definite solid mass is not identified. Cardiomegaly. There is grade 1 spondylolisthesis L5 on S1 secondary to bilateral spondylolysis at L5. HE IS CURRENTLY RECEIVING NORMAL SALINE WITH POTASSIUM AT KVO, ALBUMIN 25% IV DAILY, LEVAQUIN 500MG IV DAILY, MORPHINE SULFATE 2MG IV Q4H PRN, PEPCID 20MG IV BID, PROTONIX 40MG IV BID. WE RESUMED HIS HOME MEDICATIONS OF TRAZODONE, OXYCODONE, LOSARTAN, LORATADINE, DULOXETINE, LIPITOR, ELIQUIS, LEVETIRACETAM, SOLIFENACIN, VITAMIN B12, SIMETHICONE, CILOSTAZOL, NORVASC, CARVEDILOL, DULOXETINE, NIACINAMIDE, AND QUETIAPINE. TODAY, WE WILL ADD TUSSIONEX 5ML PO Q12H. WE WILL HAVE PHYSICAL THERAPY WORK WITH HIM. OTHERWISE, WE WILL FOLLOW-UP WITH AM LABS AND CONTINUE TO MONITOR. TIME SPENT ON CLINICAL ASSESSMENT, REVIEWING LABS AND IMAGING, DECISION MAKING, AND DOCUMENTATION GREATER THAN 45 MINUTES. - Past Medical Family Social History Past Med/Fam/Surg Hx: No changes since H&P Allergies: Allergies codeine Allergy (Verified 10/10/21 16:28) meperidine [From Demerol] Allergy (Verified 10/10/21 16:28) Penicillins Allergy (Verified 07/11/22 09:55) - Review of Systems ROS: No change since H&P - Vital Signs and I&O's Vital Signs: Vital Signs Temperature 98.6 F Pulse Rate 87 Pulse Rate 85 Pulse Rate 85 Pulse Rate 82 Pulse Rate 86 Pulse Rate 82 Pulse Rate 82 Pulse Rate 80 Pulse Rate 80 Pulse Rate 80 Pulse Rate 80 Pulse Rate 82 Pulse Rate 82 Respiratory Rate 24 Respiratory Rate 21 Respiratory Rate 20 Respiratory Rate 29 Respiratory Rate 27 Respiratory Rate 27 Respiratory Rate 28 Respiratory Rate 29 Respiratory Rate 29 Respiratory Rate 30 Respiratory Rate 30 Respiratory Rate 24 Respiratory Rate 24 Blood Pressure 158/72 Blood Pressure 175/81 Blood Pressure 158/73 Blood Pressure 158/73 Blood Pressure 148/69 Blood Pressure 148/69 Blood Pressure 127/70 Blood Pressure 127/70 Blood Pressure 124/58 Blood Pressure 124/58 Blood Pressure 140/63 Blood Pressure 140/63 O2 Sat by Pulse Oximetry 98 O2 Sat by Pulse Oximetry 99 O2 Sat by Pulse Oximetry 100 O2 Sat by Pulse Oximetry 100 O2 Sat by Pulse Oximetry 99 O2 Sat by Pulse Oximetry 98 O2 Sat by Pulse Oximetry 99 O2 Sat by Pulse Oximetry 100 O2 Sat by Pulse Oximetry 100 O2 Sat by Pulse Oximetry 97 O2 Sat by Pulse Oximetry 97 O2 Sat by Pulse Oximetry 100 O2 Sat by Pulse Oximetry 100 Intake and Output: Intake & Output 06/13/23 06/14/23 06/15/23 06/16/23 11:59 11:59 11:59 11:59 Intake Total 803 / 803 2206 / 2206 1147 / 1147 1005 / 1005 Balance 803 / 803 2205 / 2205 1147 / 114 1005 / 1005 - Physical Exam Oriented: Person Eyes: Normal Ear: Normal Nose: Normal Throat: Normal Respiratory: Diminished Cardiovascular: Normal : Normal Auscultation: Bowel Sounds: Normal Tenderness: Diffuse, Mild Skin: Normal Musculoskeletal: Normal Psychiatric: Normal Mood Description: Calm Affect: Flat Speech Pattern: Unclear, Delayed, Slurred - Laboratory and Diagnostics Result Diagrams: 06/16/23 04:20 06/16/23 04:20 Labs: 06/11/23 15:49 Blood Blood Culture - Preliminary 06/11/23 15:48 Blood Blood Culture - Preliminary Laboratory WBC 7.2 X10^3/uL (3.6-10.0) 06/16/23 04:20 RBC 3.01 X10^6/uL (4.7-6.0) L 06/16/23 04:20 Hgb 7.1 g/dL (13.5-18.0) L 06/16/23 04:20 Hct 22.9 % (42.0-54.0) L 06/16/23 04:20 MCV 76.2 fL (80.0-100.0) L 06/16/23 04:20 MCH 23.7 pg (27.0-34.0) L 06/16/23 04:20 MCHC 31.1 g/dL (33.0-35.0) L 06/16/23 04:20 RDW 18.5 % (11.6-16.5) H 06/16/23 04:20 Plt Count 332 X10^3/uL (150.0-450.0) 06/16/23 04:20 MPV 6.5 fL (7.4-11.0) L 06/16/23 04:20 Neut % (Auto) 73.7 % (42.0-75.0) 06/16/23 04:20 Lymph % (Auto) 17.6 % (21.0-51.0) L 06/16/23 04:20 [place] % (Auto) 6.7 % (0.0-13.0) 06/16/23 04:20 Eos % (Auto) 1.7 % (0.9-2.9) 06/16/23 04:20 Baso % (Auto) 0.3 % (0.2-1.0) 06/16/23 04:20 Neut # (Auto) 5.3 x10^3/uL (2.2-4.8) H 06/16/23 04:20 Lymph # (Auto) 1.3 X10^3/uL (1.3-2.9) 06/16/23 04:20 [place] # (Auto) 0.5 x10^3/uL (0.3-0.8) 06/16/23 04:20 Eos # (Auto) 0.1 x10^3/uL (0.0-0.2) 06/16/23 04:20 Baso # (Auto) 0.0 X10^3/uL (0.0-0.1) 06/16/23 04:20 Absolute Nucleated RBC 0.0 /100WBC 06/16/23 04:20 Sodium 141 mmol/L (136-145) 06/16/23 04:20 Corrected Sodium 142 mmol/L (136-145) 06/16/23 04:20 Potassium 3.9 mmol/L (3.5-5.1) 06/16/23 04:20 Chloride 110 mmol/L (98-107) H 06/16/23 04:20 Carbon Dioxide 24.2 mmol/L (21-32) 06/16/23 04:20 BUN 11 mg/dL (7-18) 06/16/23 04:20 Creatinine 0.79 mg/dL (0.70-1.30) 06/16/23 04:20 Est GFR (MDRD) Af Amer > 60 (>60) 06/16/23 04:20 Est GFR (MDRD) Non-Af > 60 (>60) 06/16/23 04:20 Glucose 142 mg/dL (65-99) H 06/16/23 04:20 POC Glucose (mg/dL) 147 mg/dL (65-99) H 06/16/23 05:32 Lactic Acid 0.9 mmol/L (0.4-2.0) 06/11/23 15:48 Calcium 8.8 mg/dL (8.5-10.1) 06/16/23 04:20 Corrected Calcium 10.6 mg/dL (8.5-10.1) H 06/16/23 04:20 Magnesium 1.9 mg/dL (2.0-2.9) L 06/16/23 04:20 Total Bilirubin 0.50 mg/dL (0.2-1.0) 06/16/23 04:20 AST 35 Units/L (15-37) 06/16/23 04:20 ALT 32 Units/L (12-78) 06/16/23 04:20 Alkaline Phosphatase 92 Units/L (46-116) 06/16/23 04:20 Ammonia < 10 umol/L (11-32) L 06/11/23 18:25 Creatine Kinase 34 Units/L (39-308) L 06/11/23 15:49 Troponin I High Sens 9.0 ng/L (4.0-60.0) 06/11/23 15:49 Total Protein 6.4 g/dL (6.4-8.2) 06/16/23 04:20 Albumin 1.7 g/dL (3.4-5.0) L 06/16/23 04:20 Globulin 4.7 g/dL (2.5-4.5) H 06/16/23 04:20 Albumin/Globulin Ratio 0.4 Ratio (1.1-2.1) L 06/16/23 04:20 Amylase 18 Units/L (25-115) L 06/16/23 04:20 Lipase 10 Units/L (16-77) L 06/16/23 04:20 - Plan (1) Acute pancreatitis Status: Acute Qualifiers: Pancreatitis type: unspecified pancreatitis type Acute pancreatitis complication: unspecified Qualified Code(s): K85.90 - Acute pancreatitis without necrosis or infection, unspecified Plan: NORMAL SALINE WITH POTASIUM AT O, ALBUMIN 25% IV DAILY, LEVAQUIN 500MG IV DAILY, MORPHINE SULFATE 2MG IV Q4H PRN, PEPCID 20MG IV BID, PROTONIX 40MG IV BID. RESUME HOME MEDS (2) Bronchitis Status: Acute (3) Hypoxia Status: Acute Plan: SUPPLEMENTAL OXYGEN (4) Anemia Status: Acute Qualifiers: Anemia type: unspecified type Qualified Code(s): D64.9 - Anemia, unspecified (5) Hypoalbuminemia Status: Acute (6) HTN (hypertension) Status: Chronic Qualifiers: Hypertension type: primary hypertension Qualified Code(s): I10 - Essential (primary) hypertension Plan: RESUME HOME MEDS (7) GERD (gastroesophageal reflux disease) Status: Chronic Qualifiers: Esophagitis presence: esophagitis presence not specified Qualified Code(s): K21.9 - Gastro-esophageal reflux disease without esophagitis Plan: RESUME HOME MEDS (8) Hyperlipidemia Status: Chronic Qualifiers: Hyperlipidemia type: mixed hyperlipidemia Qualified Code(s): E78.2 - Mixed hyperlipidemia Plan: RESUME HOME MEDS (9) Major depressive disorder Status: Chronic Qualifiers: Major depression recurrence: recurrent Active/Remission status: remission status unspecified Qualified Code(s): F33.9 - Major depressive disorder, recurrent, unspecified Plan: RESUME HOME MEDS
[2023-06-16] MEDS ORDERED: TUSSIONEX PENNKINETIC SUSP ONE (09:28)
[2023-06-16] MEDS: TUSSIONEX PENNKINETIC SUSP PO SCH ×2 (09:32→21:54)
[2023-06-16] MEDS: MORPHINE SULFATE INJ 2 MG INJ IVP PRN (20:40)
[2023-06-16] MEDS: MILK OF MAGNESIA PO SCH (22:57)
[2023-06-16] MEDS: SNACK - Diabetic Appropriate PO SCH (23:00)
[2023-06-16] MEDS: COLACE CAP 100 MG PO SCH (23:00)
[2023-06-17 05:11] LABS: BASOPHILS % (AUTO) 0.3 % (0.2-1.0); EOSINOPHILS # (AUTO) 0.1 x10^3/uL (0.0-0.2); EOSINOPHILS % (AUTO) 1.2 % (0.9-2.9); HEMATOCRIT 22.7 % (42.0-54.0); HEMOGLOBIN 7.2 g/dL (13.5-18.0); LYMPHOCYTES # (AUTO) 1.7 X10^3/uL (1.3-2.9); LYMPHOCYTES % (AUTO) 23.5 % (21.0-51.0); MEAN CORPUSCULAR HEMOGLOBIN 24.1 pg (27.0-34.0); MEAN CORPUSCULAR HGB CONC 31.9 g/dL (33.0-35.0); MEAN CORPUSCULAR VOLUME 75.5 fL (80.0-100.0); MEAN PLATELET VOLUME 6.5 fL (7.4-11.0); MONOCYTES # (AUTO) 0.4 x10^3/uL (0.3-0.8); MONOCYTES % (AUTO) 5.8 % (0.0-13.0); NEUTROPHILS # (AUTO) 5.1 x10^3/uL (2.2-4.8); NEUTROPHILS % (AUTO) 69.2 % (42.0-75.0); PLATELET COUNT 337 X10^3/uL (150.0-450.0); RED BLOOD COUNT 3.01 X10^6/uL (4.7-6.0); RED CELL DISTRIBUTION WIDTH 18.8 % (11.6-16.5); WHITE BLOOD COUNT 7.4 X10^3/uL (3.6-10.0)
[2023-06-17 05:21] LABS: ALANINE AMINOTRANSFERASE 35 Units/L (12-78); ALBUMIN 1.9 g/dL (3.4-5.0); ALKALINE PHOSPHATASE 90 Units/L (46-116); ASPARTATE AMINO TRANSFERASE 30 Units/L (15-37); BLOOD UREA NITROGEN 9 mg/dL (7-18); CALCIUM 8.8 mg/dL (8.5-10.1); CHLORIDE 110 mmol/L (98-107); COR CA(FOR HYPOALB) 10.5 mg/dL (8.5-10.1); COR NA(FOR HYPERGLY) 148 mmol/L (136-145); CREATININE 0.75 mg/dL (0.70-1.30); GLUCOSE 175 mg/dL (65-99); MAGNESIUM 1.8 mg/dL (2.0-2.9); POTASSIUM 3.8 mmol/L (3.5-5.1); SODIUM 146 mmol/L (136-145); TOTAL PROTEIN 6.6 g/dL (6.4-8.2); eGFR NON BLACK RACES > 60 (>60)
[2023-06-17] MEDS: PROTONIX INJ 40 MG VIAL IVP SCH ×2 (08:40→21:16)
[2023-06-17] MEDS: NORVASC TAB 5 MG PO SCH (08:40)
[2023-06-17] MEDS: PEPCID 20 MG VIAL 20 MG in NS 50 ML IV 50 ML IV SCH ×2 (08:40→21:13)
[2023-06-17] MEDS: ALBUMIN HUMAN 25%- 100 ML 100 ML IV SCH (08:40)
[2023-06-17] MEDS: TUSSIONEX PENNKINETIC SUSP PO SCH ×2 (08:40→21:10)
[2023-06-17] MEDS: LEVAQUIN PREMIX IV 500 MG 500 MG/100 ML BAG IV SCH (08:40)
[2023-06-17] MEDS: COREG TAB 12.5 MG PO SCH ×2 (08:41→21:11)
[2023-06-17] MEDS: CLARITIN PO SCH (08:41)
[2023-06-17] MEDS: KEPPRA TAB 500 MG PO SCH ×2 (08:41→21:11)
[2023-06-17] MEDS: PLETAL PO SCH ×2 (08:41→21:14)
[2023-06-17] MEDS: COZAAR PO SCH ×2 (08:41→21:13)
[2023-06-17] MEDS: SOLIFENACIN 10 MG PO SCH (08:42)
[2023-06-17] MEDS: NIACINAMIDE 500 MG PO SCH ×2 (08:42→21:18)
[2023-06-17] MEDS: VITAMIN B-12 PO SCH (08:51)
[2023-06-17] MEDS: NS + KCL 40 MEQ/L 1,000 ML with MAGNESIUM SULFATE 50% INJ VIAL 2 G IV SCH ×2 (11:14)
[2023-06-17] MEDS: NovoLIN R (or HumuLIN R) SUBCUT PRN (11:28)
--- NOTE | 2023-06-17 11:36 | CT ---
EXAM:BRAIN W/O CONHISTORY:ALTERED MENTAL STATUS; HX: BRAIN CA, PANCREATITIS, MENINGITISISCOMPARISON:None available.TECHNIQUE:Multiple axial images of the brain were obtained from the skull base to the vertex without administration of IV contrast. Dose reduction techniques including Automated Exposure Control (AEC) and adjustment of mA and kV were utilized.FINDINGS:No acute intraparenchymal hemorrhage or mass can be identified. No extra-axial fluid collections are seen. No alteration in the attenuation of the brain parenchyma can be identified to suggest acute or subacute ischemic change. There are scattered small-vessel ischemic changes along with the cortical atrophy and what appears to be encephalomalacia in the right frontal region with overlying craniotomy defect. These findings are probably chronic however there are no priors available for comparison. There is no definite evidence for recurrent brain mass however MRI with and without contrast would be more sensitive and specific. The ventricular system is symmetric and nondilated.IMPRESSION:1. No acute intracranial process can be identified.THIS IS AN ELECTRONICALLY VERIFIED FINAL REPORT06/17/2023 11:33 AM - Electronically signed by Christian Singleton MD
[2023-06-17] MEDS: LIPITOR TAB 20 MG PO SCH (21:12)
[2023-06-17] MEDS: DESYREL PO SCH (21:12)
[2023-06-17] MEDS: CYMBALTA PO SCH (21:12)
[2023-06-17] MEDS: COLACE CAP 100 MG PO SCH (21:14)
[2023-06-17] MEDS: MORPHINE SULFATE INJ 2 MG INJ IVP PRN (21:15)
[2023-06-17] MEDS: MILK OF MAGNESIA PO SCH (21:16)
[2023-06-17] MEDS: SNACK - Diabetic Appropriate PO SCH (21:30)
--- NOTE | 2023-06-17 23:17 | PCM.PROG ---
Progress Note - Progress Note for Day of Date of Exam: 06/17/23 - Subjective Subjective: IS CURRENTLY INPATIENT STATUS FOR TREATMENT OF ACUTE PANCREATITIS, ACUTE BRONCHITIS, HYPOXIA, AND ANEMIA. HE HAS A PMH OF ANXIETY, CAD, DM II, HTN, MALIGNANT BRAIN TUMOR, LUNG CANCER, PANCREATITIS. TODAY, HE IS ALERT, SITTING UP IN BED ON MORNING ROUNDS. HE IS ABLE TO FOLLOW SIMPLE COMMANDS AND ANSWER QUESTIONS APPROPRIATELY. HIS SPOUSE IS AT BEDSIDE AND REPORTS THAT HE CONTINUES WITH GENERALIZED WEAKNESS. SHE REPORTS THAT HE GETS CONFUSED AND AGITATED AT TIMES AND THAT THIS ISNT USUALLY LIKE HIM AT ALL. UPON EXAMINATION, HEART IS REGULAR IN RATE AND RHYTHM. BILATERAL LUNGS ARE NOTED WITH DIMINISHED LUNG SOUNDS THROUGHOUT. ABDOMEN DOES APPEAR TO BE SWOLLEN. NORMAL BOWEL SOUNDS NOTED IN ALL QUADRANTS. TRACE LOWER EXTREMITY EDEMA NOTED. HIS VITALS THIS MORNING ARE: 98.9-82-20-94%-153/76. LABS WERE OBTAINED. WBC 7.4, RBC 3.01, HCT 22.7, PLT COUNT 337, SODIUM 146, POTASSIUM 3.8, CHLORIDE 110, BUN 9, CREATININE 0.75, GLUCOSE 175, CALCIUM 8.8, MAGNESIUM 1.8, AST 30, ALT 35, ALK PHOS 90, TOTAL PROTEIN 6.6, ALBUMIN 1.9. BLOOD CULTURES ARE PENDING. WE REPEATED AN ABDOMEN/PELVIS CT WITH CONTRAST ON SUNDAY. IT REVEALED: Diffuse enlargement of the pancreas with a question of some mild peripancreatic inflammation. Early or mild acute pancreatitis is possible. Chemical correlation is recommended. Diffuse involvement of the pancreas with cystic disease which could represent pseudocysts benign or malignant cystic neoplasms. Some differential diagnostic possibilities given above. Correlation with MRI, MRCP is recommended as is careful imaging follow-up. A definite solid mass is not identified. Cardiomegaly. There is grade 1 spondylolisthesis L5 on S1 secondary to bilateral spondylolysis at L5. HE IS CURRENTLY RECEIVING NORMAL SALINE WITH POTASSIUM AT KVO, ALBUMIN 25% IV DAILY, LEVAQUIN 500MG IV DAILY, MORPHINE SULFATE 2MG IV Q4H PRN, PEPCID 20MG IV BID, PROTONIX 40MG IV BID. WE RESUMED HIS HOME MEDICATIONS OF TRAZODONE, OXYCODONE, LOSARTAN, LORATADINE, DULOXETINE, LIPITOR, ELIQUIS, LEVETIRACETAM, SOLIFENACIN, VITAMIN B12, SIMETHICONE, CILOSTAZOL, NORVASC, C ARVEDILOL, DULOXETINE, NIACINAMIDE, AND QUETIAPINE. TODAY, WE WILL ADD TUSSIONEX 5ML PO Q12H. WE WILL HAVE PHYSICAL THERAPY WORK WITH HIM. WE WILL OBTAIN A BRAIN CT WITHOUT CONTRAST AND A URINALYSIS WITH URINE CULTURE TODAY DUE TO AMS. OTHERWISE, WE WILL FOLLOW-UP WITH AM LABS AND CONTINUE TO MONITOR. TIME SPENT ON CLINICAL ASSESSMENT, REVIEWING LABS AND IMAGING, DECISION MAKING, AND DOCUMENTATION GREATER THAN 45 MINUTES. - Past Medical Family Social History Past Med/Fam/Surg Hx: No changes since H&P Allergies: Allergies codeine Allergy (Verified 10/10/21 16:28) meperidine [From Demerol] Allergy (Verified 10/10/21 16:28) Penicillins Allergy (Verified 07/11/22 09:55) - Review of Systems ROS: No change since H&P - Vital Signs and I&O's Vital Signs: Vital Signs Pulse Rate 85 Respiratory Rate 27 Respiratory Rate 27 Blood Pressure 128/68 O2 Sat by Pulse Oximetry 97 Intake and Output: Intake & Output 06/15/23 06/16/23 06/17/23 06/18/23 11:59 11:59 11:59 11:59 Intake Total 1147 / 1147 1005 / 1005 1451 / 1451 436 / 436 Balance 1147 / 1147 1005 / 1005 1451 / 1451 436 / 436 - Physical Exam Oriented: Person Eyes: Normal Ear: Normal Nose: Normal Throat: Normal Respiratory: Diminished Cardiovascular: Normal : Normal Auscultation: Bowel Sounds: Normal Palpation: Normal Tenderness: Diffuse, Mild Skin: Normal Musculoskeletal: Normal Psychiatric: Normal Mood Description: Calm Affect: Flat Speech Pattern: Unclear, Delayed, Slurred - Laboratory and Diagnostics Result Diagrams: 06/17/23 04:20 06/17/23 04:20 Labs: 06/11/23 15:49 Blood Blood Culture - Final 06/11/23 15:48 Blood Blood Culture - Final Laboratory WBC 7.4 X10^3/uL (3.6-10.0) 06/17/23 04:20 RBC 3.01 X10^6/uL (4.7-6.0) L 06/17/23 04:20 Hgb 7.2 g/dL (13.5-18.0) L 06/17/23 04:20 Hct 22.7 % (42.0-54.0) L 06/17/23 04:20 MCV 75.5 fL (80.0-100.0) L 06/17/23 04:20 MCH 24.1 pg (27.0-34.0) L 06/17/23 04:20 MCHC 31.9 g/dL (33.0-35.0) L 06/17/23 04:20 RDW 18.8 % (11.6-16.5) H 06/17/23 04:20 Plt Count 337 X10^3/uL (150.0-450.0) 06/17/23 04:20 MPV 6.5 fL (7.4-11.0) L 06/17/23 04:20 Neut % (Auto) 69.2 % (42.0-75.0) 06/17/23 04:20 Lymph % (Auto) 23.5 % (21.0-51.0) 06/17/23 04:20 [place] % (Auto) 5.8 % (0.0-13.0) 06/17/23 04:20 Eos % (Auto) 1.2 % (0.9-2.9) 06/17/23 04:20 Baso % (Auto) 0.3 % (0.2-1.0) 06/17/23 04:20 Neut # (Auto) 5.1 x10^3/uL (2.2-4.8) H 06/17/23 04:20 Lymph # (Auto) 1.7 X10^3/uL (1.3-2.9) 06/17/23 04:20 [place] # (Auto) 0.4 x10^3/uL (0.3-0.8) 06/17/23 04:20 Eos # (Auto) 0.1 x10^3/uL (0.0-0.2) 06/17/23 04:20 Baso # (Auto) 0.0 X10^3/uL (0.0-0.1) 06/17/23 04:20 Absolute Nucleated RBC 0.0 /100WBC 06/17/23 04:20 Sodium 146 mmol/L (136-145) H 06/17/23 04:20 Corrected Sodium 148 mmol/L (136-145) H 06/17/23 04:20 Potassium 3.8 mmol/L (3.5-5.1) 06/17/23 04:20 Chloride 110 mmol/L (98-107) H 06/17/23 04:20 Carbon Dioxide 28.0 mmol/L (21-32) 06/17/23 04:20 BUN 9 mg/dL (7-18) 06/17/23 04:20 Creatinine 0.75 mg/dL (0.70-1.30) 06/17/23 04:20 Est GFR (MDRD) Af Amer > 60 (>60) 06/17/23 04:20 Est GFR (MDRD) Non-Af > 60 (>60) 06/17/23 04:20 Glucose 175 mg/dL (65-99) H 06/17/23 04:20 POC Glucose (mg/dL) 146 mg/dL (65-99) H 06/17/23 20:41 Lactic Acid 0.9 mmol/L (0.4-2.0) 06/11/23 15:48 Calcium 8.8 mg/dL (8.5-10.1) 06/17/23 04:20 Corrected Calcium 10.5 mg/dL (8.5-10.1) H 06/17/23 04:20 Magnesium 1.8 mg/dL (2.0-2.9) L 06/17/23 04:20 Total Bilirubin 0.70 mg/dL (0.2-1.0) 06/17/23 04:20 AST 30 Units/L (15-37) 06/17/23 04:20 ALT 35 Units/L (12-78) 06/17/23 04:20 Alkaline Phosphatase 90 Units/L (46-116) 06/17/23 04:20 Ammonia < 10 umol/L (11-32) L 06/11/23 18:25 Creatine Kinase 34 Units/L (39-308) L 06/11/23 15:49 Troponin I High Sens 9.0 ng/L (4.0-60.0) 06/11/23 15:49 Total Protein 6.6 g/dL (6.4-8.2) 06/17/23 04:20 Albumin 1.9 g/dL (3.4-5.0) L 06/17/23 04:20 Globulin 4.7 g/dL (2.5-4.5) H 06/17/23 04:20 Albumin/Globulin Ratio 0.4 Ratio (1.1-2.1) L 06/17/23 04:20 Amylase 18 Units/L (25-115) L 06/16/23 04:20 Lipase 10 Units/L (16-77) L 06/16/23 04:20 - Plan (1) Acute pancreatitis Status: Acute Qualifiers: Pancreatitis type: unspecified pancreatitis type Acute pancreatitis complication: unspecified Qualified Code(s): K85.90 - Acute pancreatitis without necrosis or infection, unspecified Plan: NORMAL SALINE WITH POTASIUM AT KVO, ALBUMIN 25% IV DAILY, LEVAQUIN 500MG IV DAILY, MORPHINE SULFATE 2MG IV Q4H PRN, PEPCID 20MG IV BID, PROTONIX 40MG IV BID. RESUME HOME MEDS (2) Bronchitis Status: Acute (3) Hypoxia Status: Acute Plan: SUPPLEMENTAL OXYGEN (4) Anemia Status: Acute Qualifiers: Anemia type: unspecified type Qualified Code(s): D64.9 - Anemia, unspecified (5) Hypoalbuminemia Status: Acute (6) HTN (hypertension) Status: Chronic Qualifiers: Hypertension type: primary hypertension Qualified Code(s): I10 - Essential (primary) hypertension Plan: RESUME HOME MEDS (7) GERD (gastroesophageal reflux disease) Status: Chronic Qualifiers: Esophagitis presence: esophagitis presence not specified Qualified Code(s): K21.9 - Gastro-esophageal reflux disease without esophagitis Plan: RESUME HOME MEDS (8) Hyperlipidemia Status: Chronic Qualifiers: Hyperlipidemia type: mixed hyperlipidemia Qualified Code(s): E78.2 - Mixed hyperlipidemia Plan: RESUME HOME MEDS (9) Major depressive disorder Status: Chronic Qualifiers: Major depression recurrence: recurrent Active/Remission status: remission status unspecified Qualified Code(s): F33.9 - Major depressive disorder, recurrent, unspecified Plan: RESUME HOME MEDS
[2023-06-18] MEDS: NS + KCL 40 MEQ/L 1,000 ML with MAGNESIUM SULFATE 50% INJ VIAL 2 G IV SCH ×2 (02:27)
[2023-06-18 05:30] LABS: BASOPHILS % (AUTO) 0.2 % (0.2-1.0); EOSINOPHILS # (AUTO) 0.1 x10^3/uL (0.0-0.2); EOSINOPHILS % (AUTO) 1.8 % (0.9-2.9); HEMATOCRIT 23.2 % (42.0-54.0); HEMOGLOBIN 7.2 g/dL (13.5-18.0); LYMPHOCYTES # (AUTO) 1.7 X10^3/uL (1.3-2.9); LYMPHOCYTES % (AUTO) 25.5 % (21.0-51.0); MEAN CORPUSCULAR HEMOGLOBIN 23.7 pg (27.0-34.0); MEAN CORPUSCULAR HGB CONC 31.2 g/dL (33.0-35.0); MEAN CORPUSCULAR VOLUME 76.2 fL (80.0-100.0); MEAN PLATELET VOLUME 6.6 fL (7.4-11.0); MONOCYTES # (AUTO) 0.5 x10^3/uL (0.3-0.8); MONOCYTES % (AUTO) 7.2 % (0.0-13.0); NEUTROPHILS # (AUTO) 4.2 x10^3/uL (2.2-4.8); NEUTROPHILS % (AUTO) 65.3 % (42.0-75.0); PLATELET COUNT 299 X10^3/uL (150.0-450.0); RED BLOOD COUNT 3.04 X10^6/uL (4.7-6.0); RED CELL DISTRIBUTION WIDTH 18.9 % (11.6-16.5); WHITE BLOOD COUNT 6.5 X10^3/uL (3.6-10.0)
[2023-06-18 05:33] VITALS: TEMP 98.6
[2023-06-18 05:46] LABS: ALANINE AMINOTRANSFERASE 32 Units/L (12-78); ALBUMIN 1.9 g/dL (3.4-5.0); ALKALINE PHOSPHATASE 82 Units/L (46-116); ASPARTATE AMINO TRANSFERASE 25 Units/L (15-37); BLOOD UREA NITROGEN 8 mg/dL (7-18); CALCIUM 8.8 mg/dL (8.5-10.1); CARBON DIOXIDE 30.3 mmol/L (21-32); CHLORIDE 110 mmol/L (98-107); COR CA(FOR HYPOALB) 10.5 mg/dL (8.5-10.1); COR NA(FOR HYPERGLY) 147 mmol/L (136-145); CREATININE 0.75 mg/dL (0.70-1.30); GLUCOSE 145 mg/dL (65-99); SODIUM 146 mmol/L (136-145); TOTAL PROTEIN 6.5 g/dL (6.4-8.2); eGFR NON BLACK RACES > 60 (>60)
[2023-06-18 06:38] LABS: BILIRUBIN,URINE NEGATIVE (NEGATIVE); BLOOD/HEMOGLOBIN,URINE NEGATIVE (NEGATIVE); GLUCOSE, URINE NEGATIVE (NEGATIVE); KETONES,URINE NEGATIVE (NEGATIVE); LEUKOCYTE ESTERASE ,URINE 2+ (NEGATIVE); NITRITES,URINE NEGATIVE (NEGATIVE); PROTEIN,URINE 2+ (NEGATIVE); UROBILINOGEN,URINE NORMAL (NORMAL)
[2023-06-18 06:50] LABS: APPEARANCE,URINE SLIGHTLY HAZY (CLEAR); COLOR,URINE DARK YELLOW (YELLOW); RBC,URINE 0-2 /HPF (0-3)
[2023-06-18 06:51] LABS: BACTERIA,URINE TRACE /HPF (NEGATIVE); SQUAMOUS EPITHELIAL CELL,UR FEW /HPF (NEGATIVE); YEAST,URINE RARE /HPF (NEGATIVE)
[2023-06-18] MEDS: NIACINAMIDE 500 MG PO SCH (09:03)
[2023-06-18] MEDS: PROTONIX INJ 40 MG VIAL IVP SCH (09:03)
[2023-06-18] MEDS: ALBUMIN HUMAN 25%- 100 ML 100 ML IV SCH (09:03)
[2023-06-18] MEDS: TUSSIONEX PENNKINETIC SUSP PO SCH (09:03)
[2023-06-18] MEDS: PEPCID 20 MG VIAL 20 MG in NS 50 ML IV 50 ML IV SCH (09:03)
[2023-06-18] MEDS: SOLIFENACIN 10 MG PO SCH (09:03)
[2023-06-18] MEDS: LEVAQUIN PREMIX IV 500 MG 500 MG/100 ML BAG IV SCH (09:03)
[2023-06-18] MEDS: COREG TAB 12.5 MG PO SCH (09:04)
[2023-06-18] MEDS: KEPPRA TAB 500 MG PO SCH (09:04)
[2023-06-18] MEDS: VITAMIN B-12 PO SCH (09:04)
[2023-06-18] MEDS: CLARITIN PO SCH (09:04)
[2023-06-18] MEDS: NORVASC TAB 5 MG PO SCH (09:04)
[2023-06-18] MEDS: PLETAL PO SCH (09:04)
[2023-06-18] MEDS: COZAAR PO SCH (09:04)
[2023-06-18 09:41] VITALS: BP 127/68; PULSE 84; RESP 17; O2SAT 96
== END 2023-06-18 11:50 | disposition home health service (06) | DRG 439 ==
LOC: ER 14:41 → ICU 14:41 → OBSVTOIN 21:51 → ICU 22:38
PROVIDERS: ADMIT Internal Medicine; ATTEND Internal Medicine
DX: R41.82 Altered mental status, unspecified; I10 Essential (primary) hypertension; Z85.841 Personal history of malignant neoplasm of brain; K85.80 Other acute pancreatitis without necrosis or infection; F33.8 Other recurrent depressive disorders; R06.02 Shortness of breath; Z85.118 Personal history of other malignant neoplasm of bronchus and lung; E78.2 Mixed hyperlipidemia; E87.6 Hypokalemia; N40.0 Benign prostatic hyperplasia without lower urinary tract symptoms; R53.1 Weakness; I25.10 Atherosclerotic heart disease of native coronary artery without angina pectoris; R10.84 Generalized abdominal pain; J20.8 Acute bronchitis due to other specified organisms; E11.65 Type 2 diabetes mellitus with hyperglycemia; Z79.01 Long term (current) use of anticoagulants; E83.42 Hypomagnesemia; Z79.1 Long term (current) use of non-steroidal anti-inflammatories (NSAID)

== ENCOUNTER 2023-06-27 09:18 | Inpatient (IN) ==
[2023-06-27] MEDS ORDERED: QUELICIN (OR ANECTINE) ONE (09:28)
[2023-06-27] MEDS ORDERED: AMIDATE INJ 40 MG VIAL ONE (09:28)
[2023-06-27 09:29] LABS: ABG BASE EXCESS 0.5 mmol/L (-2.0-2.0)
--- NOTE | 2023-06-27 09:29 | DR.SOBA ---
HPI Time Seen Time Seen by Provider: 06/27/23 09:29 Complaints Chief Complaint Doctors Comments: 78 y/o male in via EMS in respiratory distress. Patient having increasing cough and difficulty breathing over the past few days. Per spouse almost called the ambulance last p.m.. Having a moist cough, difficulty clearing his secretions. Spouse did not of obvious fever at home.. Patient in respiratory distress at this moment, he is somnolent and unable to respond to questions. Currently has minimal response to tactile stimuli. EMS arrival shows pulse ox to be in the low 70s on room air. They placed him on oxygen, then on CPAP, he only came up into the 80s. Patient unable to answer questions Reviewed Nurses Notes Reviewed: Yes Source History Provided: Family Member and EMS PMH PMH Past Medical History: Anxiety, Coronary Artery Disease, Diabetes and Hypertension Past Surgical History: Yes Surgical History: Angioplasty/Stents, Ortho Surgery and Other Family History Family Medical History: Diabetes Mellitus and Hypertension Social History Does patient currently use any type of tobacco product: No Alcohol Use: None Do you use any recreational Drugs:: No ROS Review of Systems Unable to Obtain Due To: Altered mental status PE Vital Signs Vitals: Vital Signs Temperature 100.4 F Pulse Rate 102 Pulse Rate 104 Pulse Rate 104 Pulse Rate 106 Pulse Rate 109 Pulse Rate 113 Pulse Rate 118 Pulse Rate 122 Pulse Rate 126 Pulse Rate 126 Respiratory Rate 29 Respiratory Rate 31 Respiratory Rate 31 Respiratory Rate 32 Respiratory Rate 34 Respiratory Rate 37 Respiratory Rate 39 Respiratory Rate 39 Respiratory Rate 36 Respiratory Rate 38 Blood Pressure 95/54 Blood Pressure 97/53 Blood Pressure 97/53 Blood Pressure 97/53 Blood Pressure 96/54 Blood Pressure 96/56 Blood Pressure 96/55 Blood Pressure 105/55 Blood Pressure 131/64 Blood Pressure 129/85 O2 Sat by Pulse Oximetry 100 O2 Sat by Pulse Oximetry 100 O2 Sat by Pulse Oximetry 100 O2 Sat by Pulse Oximetry 100 O2 Sat by Pulse Oximetry 99 O2 Sat by Pulse Oximetry 98 O2 Sat by Pulse Oximetry 97 O2 Sat by Pulse Oximetry 93 O2 Sat by Pulse Oximetry 71 O2 Sat by Pulse Oximetry 70 General General Appearance: In Distress (Tachypneic, coughing, somnolent) ENT ENT Exam: Normal Oropharynx and Mucous Membranes Moist Neck Neck Exam: Normal Inspection Respiratory Respiratory Exam: Accessory Muscle Use, Respiratory Distress and Other (Bilate ral rhonchi, rales) Cardiovascular Cardiovascular Exam: Regular Rate, Normal Rhythm, Tachycardia and Normal Heart Sounds Abdominal Exam Abdominal Exam: Normal Bowel Sounds and Soft; negative Tenderness Extremities Extremities Exam: Edema (Lower extremities) Neurologic Neurological Exam: Other (Somnolent, does not respond to questions, no response to noxious stimuli) COURSE Treatment Treatment: 78-year-old male, respiratory distress, altered mental status workup initiated. Initial ABG shows elevated pCO2 at 78, low pO2. Patient placed on our BiPAP here. Doing much better, has decreased respiratory rate, pulse ox 95% on current settings. Chest x-ray with questionable developing left lower lobe infiltrate. CBC shows elevated white count at 20,400. Also has anemia hemoglobin 8.4. Has mild elevation of BNP of 265. Negative troponin, negative lactic acid, negative COVID respiratory panel. Patient was given IV fluids, IV antibiotic. Patient clinically with left lower lobe pneumonia, respiratory distress, altered mental status.. Recommend admission for further treatment. Per medical record patient cared for at the [facility] usually, has history of brain CA with subsequent surgery. Will present patient to the on-call physician, Dr. Goldstein. He accepted the admission. [facility]OR Labs Reviewed Laboratory Results Reviewed?: Yes 06/27/23 09:24 06/27/23 09:24 Laboratory: WBC 20.4 X10^3/uL (3.6-10.0) H 06/27/23 09:24 RBC 3.64 X10^6/uL (4.7-6.0) L 06/27/23 09:24 Hgb 8.4 g/dL (13.5-18.0) L 06/27/23 09:24 Hct 27.4 % (42.0-54.0) L 06/27/23 09:24 MCV 75.4 fL (80.0-100.0) L 06/27/23 09:24 MCH 23.0 pg (27.0-34.0) L 06/27/23 09:24 MCHC 30.5 g/dL (33.0-35.0) L 06/27/23 09:24 RDW 19.8 % (11.6-16.5) H 06/27/23 09:24 Plt Count 505 X10^3/uL (150.0-450.0) H 06/27/23 09:24 MPV 6.8 fL (7.4-11.0) L 06/27/23 09:24 Neut % (Auto) 64.2 % (42.0-75.0) 06/27/23 09:24 Lymph % (Auto) 30.6 % (21.0-51.0) 06/27/23 09:24 [place]offey % (Auto) 4.2 % (0.0-13.0) 06/27/23 09:24 Eos % (Auto) 0.8 % (0.9-2.9) L 06/27/23 09:24 Baso % (Auto) 0.2 % (0.2-1.0) 06/27/23 09:24 Neut # (Auto) 13.1 x10^3/uL (2.2-4.8) H 06/27/23 09:24 Lymph # (Auto) 6.2 X10^3/uL (1.3-2.9) H 06/27/23 09:24 [place]y # (Auto) 0.9 x10^3/uL (0.3-0.8) H 06/27/23 09:24 Eos # (Auto) 0.2 x10^3/uL (0.0-0.2) 06/27/23 09:24 Baso # (Auto) 0.0 X10^3/uL (0.0-0.1) 06/27/23 09:24 Absolute Nucleated RBC 0.1 /100WBC 06/27/23 09:24 PT 21.8 SECONDS (11.8-14.3) 06/27/23 09:24 INR Target Range - 06/27/23 09:24 INR 1.94 (0.8-1.3) H 06/27/23 09:24 APTT 42.5 SECONDS (22.9-36.5) H 06/27/23 09:24 PTT Comment - 06/27/23 09:24 Sample Site Lrad 06/27/23 09: ABG pH 7.200 (7.35-7.45) L 06/27/23 09: ABG pCO2 78.0 mmHg (35.0-45.0) H* 06/27/23 09: ABG pO2 44.0 mmHg (80.0-100.0) L* 06/27/23 09:26 ABG HCO3 30.5 mmol/L (22-26) H* 06/27/23 09:26 ABG O2 Saturation 68.0 % (90-100) L* 06/27/23 09:26 ABG Base Excess 0.5 mmol/L (-2.0-2.0) 06/27/23 09:26 Santos Test Pos 06/27/23 09:26 A-a Gradient 144.0 mmHg 06/27/23 09:26 FiO2 40.0 06/27/23 09:26 Blood Gas Comments Pt david well. kg 06/27/23 09:26 Sodium 135 mmol/L (136-145) L 06/27/23 09:24 Corrected Sodium 138 mmol/L (136-145) 06/27/23 09:24 Potassium 3.6 mmol/L (3.5-5.1) 06/27/23 09:24 Chloride 101 mmol/L (98-107) 06/27/23 09:24 Carbon Dioxide 28.8 mmol/L (21-32) 06/27/23 09:24 BUN 9 mg/dL (7-18) 06/27/23 09:24 Creatinine 0.96 mg/dL (0.70-1.30) 06/27/23 09:24 Est GFR (MDRD) Af Amer > 60 (>60) 06/27/23 09:24 Est GFR (MDRD) Non-Af > 60 (>60) 06/27/23 09:24 Glucose 214 mg/dL (65-99) H 06/27/23 09:24 Lactic Acid 0.7 mmol/L (0.4-2.0) 06/27/23 09:55 Calcium 8.6 mg/dL (8.5-10.1) 06/27/23 09:24 Corrected Calcium 10.1 mg/dL (8.5-10.1) 06/27/23 09:24 Magnesium 1.8 mg/dL (2.0-2.9) L 06/27/23 09:24 Total Bilirubin 0.50 mg/dL (0.2-1.0) 06/27/23 09:24 AST 19 Units/L (15-37) 06/27/23 09:24 ALT 23 Units/L (12-78) 06/27/23 09:24 Alkaline Phosphatase 103 Units/L (46-116) 06/27/23 09:24 Troponin I High Sens 17.4 ng/L (4.0-60.0) 06/27/23 09:24 B-Natriuretic Peptide 265 pg/mL (0-79) H 06/27/23 09:24 Total Protein 7.6 g/dL (6.4-8.2) 06/27/23 09:24 Albumin 2.1 g/dL (3.4-5.0) L 06/27/23 09:24 Globulin 5.5 g/dL (2.5-4.5) H 06/27/23 09:24 Albumin/Globulin Ratio 0.4 Ratio (1.1-2.1) L 06/27/23 09:24 SARS-CoV-2 (PCR) Negative (NEGATIVE) 06/27/23 09:43 Influenza Type A (PCR) Negative (NEGATIVE) 06/27/23 09:43 Influenza Type B (PCR) Negative (NEGATIVE) 06/27/23 09:43 RSV (PCR) Negative (NEGATIVE) 06/27/23 09:43 Elevated WBC, low hemoglobin XRAY XRAY Interpreted by: Both X-ray Results: Probable developing left lower lobe infiltrate EKG Rate: 122 [place]: LAD Rhythm: ST Block: 1 ST: Nonsp Opioid Opioid Risk Tool Age (Naeem box if 16-45): No History of Preadolescent Sexual Abuse: No Total: 0 Total Score Risk Category: Low Risk Copyright: Fernando ASKEW predicting aberrant behaviors Discharge Plan Diagnosis Discharge Problem: Respiratory distress, Pneumonia Discharge Plan Patient Disposition: ADMITTED INPATIENT Condition: Stable Orders to Discharge Patient Discharge Orders: Transfer (Routine); Ordered 06/27/23 Ordered By: Jamie Hinojosa
[2023-06-27 09:30] LABS: ABG HCO3 30.5 mmol/L (22-26)
[2023-06-27 09:31] LABS: ABG ALLEN TEST POS
[2023-06-27 09:57] LABS: BASOPHILS % (AUTO) 0.2 % (0.2-1.0); EOSINOPHILS # (AUTO) 0.2 x10^3/uL (0.0-0.2); EOSINOPHILS % (AUTO) 0.8 % (0.9-2.9); HEMATOCRIT 27.4 % (42.0-54.0); HEMOGLOBIN 8.4 g/dL (13.5-18.0); LYMPHOCYTES # (AUTO) 6.2 X10^3/uL (1.3-2.9); LYMPHOCYTES % (AUTO) 30.6 % (21.0-51.0); MEAN CORPUSCULAR HGB CONC 30.5 g/dL (33.0-35.0); MEAN CORPUSCULAR VOLUME 75.4 fL (80.0-100.0); MEAN PLATELET VOLUME 6.8 fL (7.4-11.0); MONOCYTES # (AUTO) 0.9 x10^3/uL (0.3-0.8); MONOCYTES % (AUTO) 4.2 % (0.0-13.0); NEUTROPHILS # (AUTO) 13.1 x10^3/uL (2.2-4.8); NEUTROPHILS % (AUTO) 64.2 % (42.0-75.0); PLATELET COUNT 505 X10^3/uL (150.0-450.0); RED BLOOD COUNT 3.64 X10^6/uL (4.7-6.0); RED CELL DISTRIBUTION WIDTH 19.8 % (11.6-16.5); WHITE BLOOD COUNT 20.4 X10^3/uL (3.6-10.0)
[2023-06-27 10:01] LABS: INR 1.94 (0.8-1.3)
[2023-06-27 10:05] LABS: ALANINE AMINOTRANSFERASE 23 Units/L (12-78); ALBUMIN 2.1 g/dL (3.4-5.0); ALKALINE PHOSPHATASE 103 Units/L (46-116); ASPARTATE AMINO TRANSFERASE 19 Units/L (15-37); BLOOD UREA NITROGEN 9 mg/dL (7-18); CALCIUM 8.6 mg/dL (8.5-10.1); CARBON DIOXIDE 28.8 mmol/L (21-32); CHLORIDE 101 mmol/L (98-107); COR CA(FOR HYPOALB) 10.1 mg/dL (8.5-10.1); COR NA(FOR HYPERGLY) 138 mmol/L (136-145); CREATININE 0.96 mg/dL (0.70-1.30); GLUCOSE 214 mg/dL (65-99); MAGNESIUM 1.8 mg/dL (2.0-2.9); POTASSIUM 3.6 mmol/L (3.5-5.1); SODIUM 135 mmol/L (136-145); TOTAL PROTEIN 7.6 g/dL (6.4-8.2); eGFR NON BLACK RACES > 60 (>60)
--- NOTE | 2023-06-27 10:09 | RAD ---
EXAM:Portable chestHISTORY:Respiratory distressCOMPARISON:06/11/2023FINDINGS:Pa filipent is rotated slightly to the right. Patient is status post median sternotomy. Heart size is normal. Jen are normal. Right lung and left upper lung iqbal are clear. There is increased density in the retrocardiac area of the left lower lobe obscuring the medial left hemidiaphragm. This could be on the basis of atelectasis or consolidation. Left lower lobe pneumonia not excluded. No pleural effusions are identified. Bony thorax is unremarkable.IMPRESSION:Increased density retrocardiac area of the left lower lobe obscuring the left hemidiaphragm which could be on the basis of atelectasis or pneumonic consolidation. Clinical correlation is recommended.THIS IS AN ELECTRONICALLY VERIFIED FINAL REPORT06/27/2023 10:06 AM - Electronically signed by Reji Damon MD
[2023-06-27] MEDS ORDERED: LEVAQUIN PREMIX IV 750 MG 750 MG/150 ML BAG IV ONE (10:18)
--- NOTE | 2023-06-27 10:26 | EKG ---
Test Reason : dyspnea Blood Pressure : */* mmHG Vent. 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
[2023-06-27] MEDS ORDERED: LEVAQUIN PREMIX IV 750 MG 750 MG/150 ML BAG IV SCH (11:00)
[2023-06-27] MEDS ORDERED: CONSULT PHARMACY - POTASSIUM & MAGNESIUM XX SCH (12:32)
[2023-06-27] MEDS ORDERED: D5 1/2 NS 1,000 ML 1,000 ML IV SCH (12:32)
[2023-06-27] MEDS ORDERED: K-DUR TAB 20 MEQ PO SCH (14:00)
[2023-06-27] MEDS ORDERED: MAG-OX TAB PO SCH (14:00)
[2023-06-27] MEDS: D5 1/2 NS + KCL 20 MEQ/L 1,000 ML with MAGNESIUM SULFATE 50% INJ VIAL 1 G IV SCH ×2 (14:07)
[2023-06-27] MEDS: DUONEB 0.5 MG/3 MG (3 mL) NEB SCH ×2 (17:14→20:17)
[2023-06-27] MEDS: ZITHROMAX INJ 500 MG VIAL 500 MG in D5W 250 ML IV 250 ML IV SCH (17:42)
[2023-06-27] MEDS: CHRONULAC PO SCH (17:42)
[2023-06-27] MEDS ORDERED: PULMICORT NEB TX 0.5 MG NEB ONE (19:14)
[2023-06-27] MEDS: PULMICORT NEB TX 0.5 MG NEB SCH (20:17)
[2023-06-27 20:42] LABS: ABG BASE EXCESS 5.3 mmol/L (-2.0-2.0); ABG HCO3 29.9 mmol/L (22-26)
[2023-06-27 20:43] LABS: ABG ALLEN TEST POS
[2023-06-27] MEDS: INVanz INJ 1 GRAM VIAL 1 G in NS 100 ML IV 100 ML IV SCH (20:50)
[2023-06-27] MEDS ORDERED: MILK OF MAGNESIA PO SCH (21:00)
[2023-06-27] MEDS ORDERED: COLACE CAP 100 MG PO SCH (21:00)
[2023-06-28] MEDS: CHRONULAC PO SCH ×4 (00:30→18:49)
[2023-06-28 05:45] LABS: BASOPHILS % (AUTO) 0.1 % (0.2-1.0); EOSINOPHILS % (AUTO) 0.3 % (0.9-2.9); HEMATOCRIT 22.4 % (42.0-54.0); LYMPHOCYTES # (AUTO) 1.3 X10^3/uL (1.3-2.9); LYMPHOCYTES % (AUTO) 9.9 % (21.0-51.0); MEAN CORPUSCULAR HGB CONC 31.3 g/dL (33.0-35.0); MEAN CORPUSCULAR VOLUME 73.3 fL (80.0-100.0); MEAN PLATELET VOLUME 6.9 fL (7.4-11.0); MONOCYTES # (AUTO) 0.5 x10^3/uL (0.3-0.8); NEUTROPHILS # (AUTO) 11.2 x10^3/uL (2.2-4.8); NEUTROPHILS % (AUTO) 85.7 % (42.0-75.0); PLATELET COUNT 328 X10^3/uL (150.0-450.0); RED BLOOD COUNT 3.06 X10^6/uL (4.7-6.0); RED CELL DISTRIBUTION WIDTH 19.4 % (11.6-16.5); WHITE BLOOD COUNT 13.1 X10^3/uL (3.6-10.0)
[2023-06-28 05:56] LABS: ALANINE AMINOTRANSFERASE 15 Units/L (12-78); ALBUMIN 1.8 g/dL (3.4-5.0); ALKALINE PHOSPHATASE 93 Units/L (46-116); ASPARTATE AMINO TRANSFERASE 15 Units/L (15-37); BLOOD UREA NITROGEN 12 mg/dL (7-18); CALCIUM 8.5 mg/dL (8.5-10.1); CARBON DIOXIDE 29.2 mmol/L (21-32); CHLORIDE 102 mmol/L (98-107); COR CA(FOR HYPOALB) 10.3 mg/dL (8.5-10.1); COR NA(FOR HYPERGLY) 138 mmol/L (136-145); GLUCOSE 153 mg/dL (65-99); SODIUM 137 mmol/L (136-145); TOTAL PROTEIN 6.7 g/dL (6.4-8.2); eGFR NON BLACK RACES > 60 (>60)
[2023-06-28 05:57] LABS: ANISOCYTOSIS SLIGHT; HYPOCHROMASIA SLIGHT; MICROCYTOSIS SLIGHT; OVALOCYTES SLIGHT; PLATELET MORPHOLOGY COMMENT NORMAL (NORMAL); STOMATOCYTES SLIGHT
[2023-06-28 06:04] LABS: POTASSIUM 2.9 mmol/L (3.5-5.1)
[2023-06-28] MEDS: D5 1/2 NS + KCL 20 MEQ/L 1,000 ML with MAGNESIUM SULFATE 50% INJ VIAL 1 G IV SCH ×6 (06:07→14:04)
[2023-06-28] MEDS ORDERED: CONSULT PHARMACY - POTASSIUM & MAGNESIUM XX SCH ×2 (07:00)
[2023-06-28 08:07] LABS: RETICULOCYTE % 1.62 % (0.8-2.2)
[2023-06-28 08:30] LABS: ABG ALLEN TEST POS; ABG HCO3 29.7 mmol/L (22-26)
[2023-06-28] MEDS: PROTONIX INJ 40 MG VIAL IVP SCH ×2 (08:32→20:55)
[2023-06-28] MEDS: INVanz INJ 1 GRAM VIAL 1 G in NS 100 ML IV 100 ML IV SCH (08:33)
[2023-06-28] MEDS: PULMICORT NEB TX 0.5 MG NEB SCH ×2 (08:51→20:37)
[2023-06-28] MEDS: DUONEB 0.5 MG/3 MG (3 mL) NEB SCH ×4 (08:51→20:37)
[2023-06-28 08:53] LABS: IRON 7 ug/dL (50-175)
[2023-06-28] MEDS ORDERED: POTASSIUM CHL 60 MEQ/NS 0.45% 500 ML 60 MEQ/500 ML BAG IV ONE (09:00)
[2023-06-28] MEDS ORDERED: K-DUR TAB 20 MEQ PO SCH (09:00)
[2023-06-28] MEDS ORDERED: DULCOLAX SUPPOSITORY 10 MG RECTAL ONE ×2 (09:13→21:00)
[2023-06-28] MEDS: ZITHROMAX INJ 500 MG VIAL 500 MG in D5W 250 ML IV 250 ML IV SCH (09:30)
--- NOTE | 2023-06-28 11:46 | RAD ---
EXAM:KUBHISTORY:Abdominal distentionCOMPARISON:CT abdomen pelvis with contrast 06/15/2023FINDINGS:There is a moderate amount of stool within the rectosigmoid. There is stool also present within the distal descending colon. There is dilatation of the colon proximal to this rectal stool. Maximum cecal diameter proximally 11 cm. There is some contrast within small bowel. Colonic distention is somewhat more prominent than on the CT of 06/15/2023. Findings would seem most consistent with a colonic ileus though partial distal colonic obstruction is not entirely excluded. An obstructing lesion was not noted to be present on the prior CT. No abnormal masses or abnormal calcifications are identified. Patient is status bilateral ALONA in good anatomic position.IMPRESSION:Moderate dilatation of the colon proximal to a moderate bolus of stool within the rectosigmoid. Findings could be on the basis of a generalized colonic ileus or distal colonic obstruction due to the stool within the rectum.THIS IS AN ELECTRONICALLY VERIFIED FINAL REPORT06/28/2023 11:43 AM - Electronically signed by Reji Damon MD
[2023-06-28 11:49] LABS: BILIRUBIN,URINE NEGATIVE (NEGATIVE); BLOOD/HEMOGLOBIN,URINE NEGATIVE (NEGATIVE); GLUCOSE, URINE NEGATIVE (NEGATIVE); KETONES,URINE NEGATIVE (NEGATIVE); LEUKOCYTE ESTERASE ,URINE NEGATIVE (NEGATIVE); NITRITES,URINE NEGATIVE (NEGATIVE); PROTEIN,URINE 2+ (NEGATIVE); UROBILINOGEN,URINE NORMAL (NORMAL)
[2023-06-28 12:08] LABS: APPEARANCE,URINE SLIGHTLY HAZY (CLEAR); COLOR,URINE YELLOW (YELLOW)
[2023-06-28] MEDS ORDERED: ZOFRAN INJ 4 MG VIAL IVP PRN (12:08)
[2023-06-28 12:09] LABS: BACTERIA,URINE TRACE /HPF (NEGATIVE); RBC,URINE 0-2 /HPF (0-3); SQUAMOUS EPITHELIAL CELL,UR RARE /HPF (NEGATIVE); YEAST,URINE RARE /HPF (NEGATIVE)
[2023-06-28 13:15] VITALS: BMI 30.2
[2023-06-28] MEDS ORDERED: LASIX IVP ONE (14:11)
[2023-06-28] MEDS: MORPHINE SULFATE INJ 2 MG INJ IVP PRN (14:35)
[2023-06-28] MEDS ORDERED: NS 500 ML IV 500 ML IV ONE (14:38)
--- NOTE | 2023-06-28 15:06 | RAD ---
EXAM: CHEST, 1 VIEW HISTORY: SOB, POSSIBLE ASPIRATION ; COMPARISON: Prior study or studies were utilized for comparison during interpretation with the most relevant samantha ed yesterday TECHNIQUE: CHEST, 1 VIEW FINDINGS: Chest: Lines and tubes: Cardiac leads overlie the chest. Mediastinum: Cardiomegaly. Pulmonary vessels: Pulmonary vasculature is prominent. Lung iqbal: Patchy opacities are seen Pleura: No effusion. No pneumothorax. Bones and soft tissues: No acute osseous or soft tissue abnormality. IMPRESSION: 1. Heart failure suggested with worsening airspace opacities THIS IS AN ELECTRONICALLY VERIFIED FINAL REPORT 06/28/2023 3:03 PM - Electronically signed by Jules Wesley MD
[2023-06-28 18:36] LABS: AMYLASE 35 Units/L (25-115); LIPASE 7 Units/L (16-77)
--- NOTE | 2023-06-28 19:03 | PCM.PROG ---
Progress Note Progress Note for Day of Date of Exam: 06/28/23 Subjective Subjective: PT IS 78 WM, ER ADMISSION WITH PNEUMONIA AND RESPIRATORY DISTRESS. PT WAS ON BIPAP LAST PM, ON O2 WITH NC ON ASSESSMENT THIS AM. PT HAS DIFFUSE DIMINISHED LUNG SOUNDS WITH CENTRAL RHONCHI THIS AM. PT ABDOMEN WAS DISTENDED ON ADMISSION WITH MILD RUE AND RLQ TENDERNESS ON PALPATION, NO REBOUND TENDERNESS. PT WAS ANEMIC, PRBC ORDERED FOR TRANSFUSION. PLAN TO TRANSFUSE ONE UNIT SLOW WITH IV LASIX THIS AM AND THEN THIS PM POST TRANSFUSION. KUB REVEALED CONSTIPATION. FAMILY AT BEDSIDE REPORTS PT HAS NOT HAD BM IN 2 WEEKS. PT IS CURRENTLY MAG AND POTASSIUM REPLACEMENT THERAPY VIA IV, RATE DECREASED DUE TO CHEST CONGESTION. BENITEZ CATH ORDERED FOR STRICT I&OS. PT HBG 7 AND WBC 13.1 FOR 20K ON ADMISSION. PLAN TO CONTINUE IV ATBX, RESP THERAPY AND SUPPLEMENTAL O2. PT HAS MALIGNANT HISTORY. PT HAS POOR OVERALL PROGNOSIS AND RESULTS OF LABS AND DIAGNOSTIC TESTS REVIEWED WITH FAMILY AT BEDSIDE. Past Medical Family Social History Allergies: Allergies codeine Allergy (Verified 10/10/21 16:28) meperidine [From Demerol] Allergy (Verified 10/10/21 16:28) Vital Signs and I&O's Vital Signs: Vital Signs Temperature 98.6 F Temperature 97.7 F Pulse Rate 114 Pulse Rate 103 Pulse Rate 103 Pulse Rate 111 Pulse Rate 145 Pulse Rate 110 Pulse Rate 132 Pulse Rate 101 Pulse Rate 103 Pulse Rate 101 Pulse Rate 102 Pulse Rate 100 Pulse Rate 101 Pulse Rate 105 Pulse Rate 101 Pulse Rate 104 Pulse Rate 117 Pulse Rate 103 Pulse Rate 104 Pulse Rate 100 Pulse Rate 105 Pulse Rate 107 Pulse Rate 103 Pulse Rate 103 Pulse Rate 102 Pulse Rate 102 Pulse Rate 103 Pulse Rate 103 Pulse Rate 104 Pulse Rate 103 Pulse Rate 106 Pulse Rate 105 Pulse Rate 102 Pulse Rate 103 Respiratory Rate 32 Respiratory Rate 27 Respiratory Rate 28 Respiratory Rate 35 Respiratory Rate 28 Respiratory Rate 29 Respiratory Rate 29 Respiratory Rate 28 Respiratory Rate 30 Respiratory Rate 30 Respiratory Rate 31 Respiratory Rate 27 Respiratory Rate 27 Respiratory Rate 29 Respiratory Rate 39 Respiratory Rate 28 Respiratory Rate 35 Respiratory Rate 30 Respiratory Rate 32 Respiratory Rate 30 Respiratory Rate 32 Respiratory Rate 34 Respiratory Rate 32 Respiratory Rate 34 Respiratory Rate 34 Respiratory Rate 30 Respiratory Rate 36 Respiratory Rate 33 Respiratory Rate 34 Respiratory Rate 36 Respiratory Rate 33 Respiratory Rate 35 Respiratory Rate 37 Blood Pressure 135/69 Blood Pressure 132/61 Blood Pressure 119/62 Blood Pressure 132/64 Blood Pressure 127/82 Blood Pressure 126/74 Blood Pressure 145/62 Blood Pressure 135/63 Blood Pressure 133/64 O2 Sat by Pulse Oximetry 93 O2 Sat by Pulse Oximetry 95 O2 Sat by Pulse Oximetry 94 O2 Sat by Pulse Oximetry 94 O2 Sat by Pulse Oximetry 95 O2 Sat by Pulse Oximetry 94 O2 Sat by Pulse Oximetry 93 O2 Sat by Pulse Oximetry 93 O2 Sat by Pulse Oximetry 94 O2 Sat by Pulse Oximetry 93 O2 Sat by Pulse Oximetry 90 O2 Sat by Pulse Oximetry 91 O2 Sat by Pulse Oximetry 92 O2 Sat by Pulse Oximetry 94 O2 Sat by Pulse Oximetry 94 O2 Sat by Pulse Oximetry 93 O2 Sat by Pulse Oximetry 93 O2 Sat by Pulse Oximetry 94 O2 Sat by Pulse Oximetry 96 O2 Sat by Pulse Oximetry 94 O2 Sat by Pulse Oximetry 96 O2 Sat by Pulse Oximetry 95 O2 Sat by Pulse Oximetry 93 O2 Sat by Pulse Oximetry 93 O2 Sat by Pulse Oximetry 94 O2 Sat by Pulse Oximetry 94 O2 Sat by Pulse Oximetry 94 O2 Sat by Pulse Oximetry 95 O2 Sat by Pulse Oximetry 94 O2 Sat by Pulse Oximetry 96 O2 Sat by Pulse Oximetry 97 O2 Sat by Pulse Oximetry 94 O2 Sat by Pulse Oximetry 94 O2 Sat by Pulse Oximetry 93 Intake and Output: Intake & Output 06/26/23 06/27/23 06/28/23 06/29/23 11:59 11:59 11:59 11:59 Intake Total 1013 / 1013 1280 / 1280 Output Total 450 / 450 Balance 1013 / 1013 830 / 830 Physical Exam Oriented: Person Eyes: Normal Ear: Normal Nose: Normal Throat: Dry Respiratory: Diminished and Rhonchi Cardiovascular: Normal : Frequency Palpation: Other (OBESE, DISTENDED) Tenderness: RUQ, RLQ, Mild, Rebound and Guarding Skin: Decreased Turgur and Bruising Musculoskeletal: Motor Deficit Mood Description: Anxious Speech Pattern: Appropriate and Delayed Laboratory and Diagnostics 06/28/23 04:30 06/28/23 04:30 Labs: Laboratory WBC 13.1 X10^3/uL (3.6-10.0) H 06/28/23 04:30 RBC 3.06 X10^6/uL (4.7-6.0) L 06/28/23 04:30 Hgb 7.0 g/dL (13.5-18.0) L* 06/28/23 04:30 Hct 22.4 % (42.0-54.0) L 06/28/23 04:30 MCV 73.3 fL (80.0-100.0) L 06/28/23 04:30 MCH 23.0 pg (27.0-34.0) L 06/28/23 04:30 MCHC 31.3 g/dL (33.0-35.0) L 06/28/23 04:30 RDW 19.4 % (11.6-16.5) H 06/28/23 04:30 Plt Count 328 X10^3/uL (150.0-450.0) 06/28/23 04:30 Plt Count Comment Adequate (ADEQUATE) 06/28/23 04:30 MPV 6.9 fL (7.4-11.0) L 06/28/23 04:30 Neut % (Auto) 85.7 % (42.0-75.0) H 06/28/23 04:30 Lymph % (Auto) 9.9 % (21.0-51.0) L 06/28/23 04:30 [place] % (Auto) 4.0 % (0.0-13.0) 06/28/23 04:30 Eos % (Auto) 0.3 % (0.9-2.9) L 06/28/23 04:30 Baso % (Auto) 0.1 % (0.2-1.0) L 06/28/23 04:30 Neut # (Auto) 11.2 x10^3/uL (2.2-4.8) H 06/28/23 04:30 Lymph # (Auto) 1.3 X10^3/uL (1.3-2.9) 06/28/23 04:30 [place] # (Auto) 0.5 x10^3/uL (0.3-0.8) 06/28/23 04:30 Eos # (Auto) 0.0 x10^3/uL (0.0-0.2) 06/28/23 04:30 Baso # (Auto) 0.0 X10^3/uL (0.0-0.1) 06/28/23 04:30 Absolute Nucleated RBC 0.0 /100WBC 06/28/23 04:30 Plt Morphology Comment Normal (NORMAL) 06/28/23 04:30 RBC Morphology Abnormal (NORMAL) 06/28/23 04:30 Hypochromasia Slight A 06/28/23 04:30 Anisocytosis Slight A 06/28/23 04:30 Microcytosis Slight A 06/28/23 04:30 Ovalocytes Slight A 06/28/23 04:30 Stomatocytes Slight A 06/28/23 04:30 Acanthocytes (Spur) Slight 06/28/23 04:30 Absolute Retic 0.0510 10^6/uL 06/28/23 07:50 Percent Retic 1.62 % (0.8-2.2) 06/28/23 07:50 PT 21.8 SECONDS (11.8-14.3) 06/27/23 09:24 INR Target Range - 06/27/23 09:24 INR 1.94 (0.8-1.3) H 06/27/23 09:24 APTT 42.5 SECONDS (22.9-36.5) H 06/27/23 09:24 PTT Comment - 06/27/23 09:24 Sample Site Rra 06/28/23 08:25 ABG pH 7.400 (7.35-7.45) 06/28/23 08:25 ABG pCO2 48.0 mmHg (35.0-45.0) H 06/28/23 08:25 ABG pO2 77.0 mmHg (80.0-100.0) L 06/28/23 08:25 ABG HCO3 29.7 mmol/L (22-26) H 06/28/23 08:25 ABG O2 Saturation 95.0 % (90-100) 06/28/23 08:25 ABG Base Excess 4.0 mmol/L (-2.0-2.0) H 06/28/23 08:25 Asntos Test Pos 06/28/23 08:25 A-a Gradient 120.0 mmHg 06/28/23 08:25 FiO2 36.0 06/28/23 08:25 Blood Gas Comments Pt david well eb 06/28/23 08:25 Sodium 137 mmol/L (136-145) 06/28/23 04:30 Corrected Sodium 138 mmol/L (136-145) 06/28/23 04:30 Potassium 2.9 mmol/L (3.5-5.1) L* 06/28/23 04:30 Chloride 102 mmol/L (98-107) 06/28/23 04:30 Carbon Dioxide 29.2 mmol/L (21-32) 06/28/23 04:30 BUN 12 mg/dL (7-18) 06/28/23 04:30 Creatinine 1.00 mg/dL (0.70-1.30) 06/28/23 04:30 Est GFR (MDRD) Af Amer > 60 (>60) 06/28/23 04:30 Est GFR (MDRD) Non-Af > 60 (>60) 06/28/23 04:30 Glucose 153 mg/dL (65-99) H 06/28/23 04:30 POC Glucose (mg/dL) 164 mg/dL (65-99) H 06/28/23 16:42 Lactic Acid 0.7 mmol/L (0.4-2.0) 06/27/23 09:55 Calcium 8.5 mg/dL (8.5-10.1) 06/28/23 04:30 Corrected Calcium 10.3 mg/dL (8.5-10.1) H 06/28/23 04:30 Magnesium 1.8 mg/dL (2.0-2.9) L 06/28/23 04:30 Iron 7 ug/dL (50-175) L 06/28/23 07:50 Ferritin 438 ng/mL (26-388) H 06/28/23 07:50 Total Bilirubin 0.60 mg/dL (0.2-1.0) 06/28/23 04:30 AST 15 Units/L (15-37) 06/28/23 04:30 ALT 15 Units/L (12-78) 06/28/23 04:30 Alkaline Phosphatase 93 Units/L (46-116) 06/28/23 04:30 Troponin I High Sens 17.4 ng/L (4.0-60.0) 06/27/23 09:24 B-Natriuretic Peptide 265 pg/mL (0-79) H 06/27/23 09:24 Total Protein 6.7 g/dL (6.4-8.2) 06/28/23 04:30 Albumin 1.8 g/dL (3.4-5.0) L 06/28/23 04:30 Globulin 4.9 g/dL (2.5-4.5) H 06/28/23 04:30 Albumin/Globulin Ratio 0.4 Ratio (1.1-2.1) L 06/28/23 04:30 Amylase 35 Units/L (25-115) 06/28/23 04:30 Lipase 7 Units/L (16-77) L 06/28/23 04:30 Vitamin B12 > 2000 pg/mL (193-986) H 06/28/23 07:50 Folate 13.1 ng/mL (>8.6) 06/28/23 07:50 Specimen Type Catherized urine 06/28/23 11:35 Urine Color Yellow (YELLOW) 06/28/23 11:35 Urine Appearance Slightly hazy (CLEAR) 06/28/23 11:35 Urine pH 5.0 (5.0 - 8.0) 06/28/23 11:35 Ur Specific [place] 1.025 (1.000-1.030) 06/28/23 11:35 Urine Protein 2+ (NEGATIVE) 06/28/23 11:35 Urine Glucose (UA) Negative (NEGATIVE) 06/28/23 11:35 Urine Ketones Negative (NEGATIVE) 06/28/23 11:35 Urine Blood Negative (NEGATIVE) 06/28/23 11:35 Urine Nitrite Negative (NEGATIVE) 06/28/23 11:35 Urine Bilirubin Negative (NEGATIVE) 06/28/23 11:35 Urine Urobilinogen Normal (NORMAL) 06/28/23 11:35 Ur Leukocyte Esterase Negative (NEGATIVE) 06/28/23 11:35 Urine RBC 0-2 /HPF (0-3) 06/28/23 11:35 Urine WBC 3-5 /HPF (0-5) 06/28/23 11:35 Ur Squamous Epith Cells Rare /HPF (NEGATIVE) 06/28/23 11:35 Amorphous Sediment Trace /HPF (NEGATIVE) 06/28/23 11:35 Urine Bacteria Trace /HPF (NEGATIVE) 06/28/23 11:35 Urine Mucus Few /HPF (NEGATIVE) 06/28/23 11:35 Urine Yeast Rare /HPF (NEGATIVE) 06/28/23 11:35 Ur Culture Indicated? No/not indicated 06/28/23 11:35 SARS-CoV-2 (PCR) Negative (NEGATIVE) 06/27/23 09:43 Influenza Type A (PCR) Negative (NEGATIVE) 06/27/23 09:43 Influenza Type B (PCR) Negative (NEGATIVE) 06/27/23 09:43 RSV (PCR) Negative (NEGATIVE) 06/27/23 09:43 Resp Viral Panel (PCR) See scanned report 06/27/23 13:08 Blood Type A POSITIVE 06/28/23 07:50 Antibody Screen Negative 06/28/23 07:50 Crossmatch See Detail 06/28/23 07:50 Plan (1) Pneumonia: Status: Acute Narrative Support Text: IV ATBX, SUPPLEMENTAL O2 IV HYDRATION WITH ELECTROLYTE REPLACEMENT, STRICT I&OS WITH BENITEZ CATH KUB THIS AM, BP CONTROL TRANSFUSE PRBC PER PROTOCOL WITH IV LASIX BC OBTAINED ON ADMISSION. PRN BIPAP THERAPY REPEAT AM LABS AND CXR (2) Diabetes mellitus: Status: Chronic Qualifiers: Diabetes mellitus type: type 2 (3) Hypoxia: Status: Acute (4) Abdominal pain: Status: Acute Qualifiers: Abdominal location: upper abdomen, unspecified Qualified Code(s): R10.10 - Upper abdominal pain, unspecified (5) GERD (gastroesophageal reflux disease): Status: Chronic Qualifiers: Esophagitis presence: esophagitis presence not specified Qualified Code(s): K21.9 - Gastro-esophageal reflux disease without esophagitis (6) HTN (hypertension): Status: Chronic Qualifiers: Hypertension type: primary hypertension Qualified Code(s): I10 - Essential (primary) hypertension (7) Anemia: Status: Acute Qualifiers: Anemia type: unspecified type Qualified Code(s): D64.9 - Anemia, unspecified
[2023-06-28 19:51] LABS: HEMOGLOBIN 8.5 g/dL (13.5-18.0)
[2023-06-28] MEDS: DESYREL PO SCH (20:55)
[2023-06-28] MEDS ORDERED: TRAZODONE 100 MG PO SCH (21:00)
[2023-06-29] MEDS: D5 1/2 NS + KCL 20 MEQ/L 1,000 ML with MAGNESIUM SULFATE 50% INJ VIAL 1 G IV SCH ×6 (01:30→14:42)
[2023-06-29] MEDS: CHRONULAC PO SCH ×3 (01:51→13:32)
[2023-06-29 05:42] LABS: BASOPHILS % (AUTO) 0.1 % (0.2-1.0); EOSINOPHILS % (AUTO) 0.2 % (0.9-2.9); HEMATOCRIT 24.4 % (42.0-54.0); HEMOGLOBIN 7.7 g/dL (13.5-18.0); LYMPHOCYTES % (AUTO) 8.4 % (21.0-51.0); MEAN CORPUSCULAR HEMOGLOBIN 23.3 pg (27.0-34.0); MEAN CORPUSCULAR HGB CONC 31.4 g/dL (33.0-35.0); MEAN CORPUSCULAR VOLUME 74.1 fL (80.0-100.0); MEAN PLATELET VOLUME 6.8 fL (7.4-11.0); MONOCYTES # (AUTO) 0.6 x10^3/uL (0.3-0.8); MONOCYTES % (AUTO) 4.8 % (0.0-13.0); NEUTROPHILS # (AUTO) 10.4 x10^3/uL (2.2-4.8); NEUTROPHILS % (AUTO) 86.5 % (42.0-75.0); PLATELET COUNT 341 X10^3/uL (150.0-450.0); RED CELL DISTRIBUTION WIDTH 18.9 % (11.6-16.5)
[2023-06-29 05:50] LABS: ALANINE AMINOTRANSFERASE 12 Units/L (12-78); ALBUMIN 1.6 g/dL (3.4-5.0); ALKALINE PHOSPHATASE 98 Units/L (46-116); ASPARTATE AMINO TRANSFERASE 11 Units/L (15-37); BLOOD UREA NITROGEN 14 mg/dL (7-18); CALCIUM 8.3 mg/dL (8.5-10.1); CARBON DIOXIDE 30.2 mmol/L (21-32); CHLORIDE 104 mmol/L (98-107); COR CA(FOR HYPOALB) 10.2 mg/dL (8.5-10.1); COR NA(FOR HYPERGLY) 139 mmol/L (136-145); GLUCOSE 162 mg/dL (65-99); SODIUM 138 mmol/L (136-145); TOTAL PROTEIN 6.4 g/dL (6.4-8.2); eGFR NON BLACK RACES > 60 (>60)
[2023-06-29 06:03] LABS: POTASSIUM 2.7 mmol/L (3.5-5.1)
[2023-06-29 06:10] LABS: ANISOCYTOSIS SLIGHT; HYPOCHROMASIA 1+; MICROCYTOSIS SLIGHT; OVALOCYTES PRESENT; PLATELET MORPHOLOGY COMMENT NORMAL (NORMAL); STOMATOCYTES PRESENT
[2023-06-29] MEDS ORDERED: CONSULT PHARMACY - POTASSIUM & MAGNESIUM XX SCH (07:00)
[2023-06-29] MEDS ORDERED: D5 IV ONE ×2 (09:00)
[2023-06-29] MEDS ORDERED: K-RIDER 10 MEQ/100 ML WATER 10 MEQ/100 ML BAG IV SCH (09:00)
[2023-06-29] MEDS ORDERED: 1/2 NS IV ONE ×2 (09:00)
[2023-06-29] MEDS ORDERED: POTASSIUM CHLORIDE IV ONE ×2 (09:00)
--- NOTE | 2023-06-29 09:03 | RAD ---
EXAM:CHEST, 1 VIEWHISTORY:CHF, LLL PNEUMONIA; CAD, DM, HTN, BRAIN CANCER, PANCREATITIS, MENINGITIS SX: CABG/VALVE SURG, ORTHOCOMPARISON:Chest radiograph. 06/28/2023.TECHNIQUE:AP view of the chestFINDINGS:Status post median sternotomy. The cardiac silhouette is stably enlarged. There are similar-appearing left and improved right lung airspace and interstitial opacities. No definite pleural effusion or pneumothorax. Soft tissue attenuation from the chest wall limits evaluation.IMPRESSION:Similar left and improved right airspace and interstitial opacities that may represent pulmonary edema or pneumonia in the acute setting. Recommend continued follow-up to resolution.THIS IS AN ELECTRONICALLY VERIFIED FINAL REPORT06/29/2023 9:00 AM - Electronically signed by Wade Bergeron MD
[2023-06-29] MEDS: DUONEB 0.5 MG/3 MG (3 mL) NEB SCH ×5 (09:23→21:00)
[2023-06-29] MEDS: PULMICORT NEB TX 0.5 MG NEB SCH ×2 (09:23→21:00)
[2023-06-29] MEDS ORDERED: D5W 250 ML IV 250 ML IV ONE (09:46)
[2023-06-29] MEDS: PROTONIX INJ 40 MG VIAL IVP SCH ×2 (09:59→20:11)
[2023-06-29] MEDS: INVanz INJ 1 GRAM VIAL 1 G in NS 100 ML IV 100 ML IV SCH (09:59)
[2023-06-29] MEDS: LASIX IVP SCH (09:59)
[2023-06-29] MEDS: ZITHROMAX INJ 500 MG VIAL 500 MG in D5W 250 ML IV 250 ML IV SCH (10:00)
[2023-06-29] MEDS ORDERED: INFeD or DEXFERRUM 25 MG in NS 100 ML IV 100 ML IV ONE (11:00)
[2023-06-29] MEDS ORDERED: INFeD or DEXFERRUM 975 MG in NS 500 ML IV 500 ML IV ONE (11:00)
[2023-06-29] MEDS: MORPHINE SULFATE INJ 2 MG INJ IVP PRN (13:51)
[2023-06-29] MEDS: COREG TAB 12.5 MG PO SCH (20:08)
[2023-06-29] MEDS: DESYREL PO SCH (20:09)
[2023-06-29] MEDS: LIPITOR TAB 20 MG PO SCH (20:09)
[2023-06-29] MEDS: CYMBALTA PO SCH (20:10)
[2023-06-29] MEDS ORDERED: DESYREL PO SCH (21:00)
[2023-06-30] MEDS: CHRONULAC PO SCH ×4 (01:09→18:16)
[2023-06-30] MEDS: D5 1/2 NS + KCL 20 MEQ/L 1,000 ML with MAGNESIUM SULFATE 50% INJ VIAL 1 G IV SCH ×8 (01:10→21:29)
[2023-06-30] MEDS: DUONEB 0.5 MG/3 MG (3 mL) NEB SCH ×5 (02:51→21:00)
[2023-06-30] MEDS: MORPHINE SULFATE INJ 2 MG INJ IVP PRN (03:54)
[2023-06-30 05:32] LABS: BASOPHILS % (AUTO) 0.3 % (0.2-1.0); EOSINOPHILS # (AUTO) 0.3 x10^3/uL (0.0-0.2); EOSINOPHILS % (AUTO) 2.7 % (0.9-2.9); HEMATOCRIT 24.9 % (42.0-54.0); LYMPHOCYTES % (AUTO) 10.3 % (21.0-51.0); MEAN CORPUSCULAR HEMOGLOBIN 23.8 pg (27.0-34.0); MEAN CORPUSCULAR HGB CONC 32.2 g/dL (33.0-35.0); MEAN CORPUSCULAR VOLUME 74.1 fL (80.0-100.0); MONOCYTES # (AUTO) 0.5 x10^3/uL (0.3-0.8); MONOCYTES % (AUTO) 4.9 % (0.0-13.0); NEUTROPHILS # (AUTO) 8.1 x10^3/uL (2.2-4.8); NEUTROPHILS % (AUTO) 81.8 % (42.0-75.0); PLATELET COUNT 339 X10^3/uL (150.0-450.0); RED BLOOD COUNT 3.36 X10^6/uL (4.7-6.0); RED CELL DISTRIBUTION WIDTH 18.6 % (11.6-16.5); WHITE BLOOD COUNT 9.9 X10^3/uL (3.6-10.0)
[2023-06-30 05:35] LABS: ALANINE AMINOTRANSFERASE 13 Units/L (12-78); ALBUMIN 1.6 g/dL (3.4-5.0); ALKALINE PHOSPHATASE 113 Units/L (46-116); BLOOD UREA NITROGEN 13 mg/dL (7-18); CALCIUM 8.5 mg/dL (8.5-10.1); CHLORIDE 104 mmol/L (98-107); COR CA(FOR HYPOALB) 10.4 mg/dL (8.5-10.1); COR NA(FOR HYPERGLY) 138 mmol/L (136-145); GLUCOSE 136 mg/dL (65-99); POTASSIUM 3.6 mmol/L (3.5-5.1); SODIUM 137 mmol/L (136-145); TOTAL PROTEIN 6.3 g/dL (6.4-8.2); eGFR NON BLACK RACES > 60 (>60)
[2023-06-30 06:02] LABS: ANISOCYTOSIS SLIGHT; HYPOCHROMASIA 1+; MICROCYTOSIS SLIGHT; OVALOCYTES PRESENT; PLATELET MORPHOLOGY COMMENT NORMAL (NORMAL)
[2023-06-30 06:21] LABS: ASPARTATE AMINO TRANSFERASE 24 Units/L (15-37)
[2023-06-30] MEDS ORDERED: CONSULT PHARMACY - POTASSIUM & MAGNESIUM XX SCH (07:00)
[2023-06-30] MEDS: LASIX IVP SCH ×2 (08:52→16:37)
[2023-06-30] MEDS: COREG TAB 12.5 MG PO SCH ×2 (08:54→20:09)
[2023-06-30] MEDS: INVanz INJ 1 GRAM VIAL 1 G in NS 100 ML IV 100 ML IV SCH (08:54)
[2023-06-30] MEDS: ZITHROMAX INJ 500 MG VIAL 500 MG in D5W 250 ML IV 250 ML IV SCH (08:55)
[2023-06-30] MEDS: PROTONIX INJ 40 MG VIAL IVP SCH ×2 (08:55→20:09)
[2023-06-30] MEDS ORDERED: K-RIDER 10 MEQ/100 ML WATER 10 MEQ/100 ML BAG IV SCH (09:00)
[2023-06-30] MEDS: PULMICORT NEB TX 0.5 MG NEB SCH ×2 (09:04→21:00)
[2023-06-30] MEDS: BUTT CREAM (COMPOUND) TOP PRN (11:18)
[2023-06-30] MEDS: THORAZINE TAB 25 MG PO SCH ×2 (18:17→21:30)
--- NOTE | 2023-06-30 18:29 | PCM.PROG ---
Progress Note Progress Note for Day of Date of Exam: 06/30/23 Subjective Subjective: PT IS 78 WM, ER ADMISSION WITH PNEUMONIA AND RESPIRATORY DISTRESS. Today the patient is sitting up in bed and is alert and awake. The patient reports increased chest congestion and coughing, so I will have them do a chest x-ray today. His reports that he has been hiccuping and would like him to take something for that to stop it. I told the I will start him on Thorazine for that and see how it works. His hemoglobin is improved and is up from 7.0 yesterday to 8.0 today. Past Medical Family Social History Allergies: Allergies codeine Allergy (Verified 10/10/21 16:28) meperidine [From Demerol] Allergy (Verified 10/10/21 16:28) Review of Systems ROS: No change since H&P Vital Signs and I&O's Vital Signs: Vital Signs Temperature 97.8 F Pulse Rate [Left Radial] 69 Respiratory Rate 24 O2 Sat by Pulse Oximetry 95 Intake and Output: Intake & Output 06/28/23 06/29/23 06/30/23 07/01/23 11:59 11:59 11:59 11:59 Intake Total 1013 / 1013 2355 / 2355 2795 / 2795 1422 / 1422 Output Total 2150 / 2150 2500 / 2500 2300 / 2300 Balance 1013 / 1013 205 / 205 295 / 295 -878 / -878 Physical Exam Oriented: Person Eyes: Normal Ear: Normal Nose: Normal Throat: Dry Respiratory: Diminished and Rhonchi Cardiovascular: Normal : Frequency Tenderness: RUQ, RLQ, Mild, Rebound and Guarding Skin: Decreased Turgur and Bruising Musculoskeletal: Motor Deficit Mood Description: Anxious Speech Pattern: Appropriate Laboratory and Diagnostics 06/30/23 04:18 06/30/23 04:18 Labs: 06/27/23 09:55 Blood Blood Culture - Preliminary 06/27/23 09:50 Blood Blood Culture - Preliminary Laboratory WBC 9.9 X10^3/uL (3.6-10.0) 06/30/23 04:18 RBC 3.36 X10^6/uL (4.7-6.0) L 06/30/23 04:18 Hgb 8.0 g/dL (13.5-18.0) L 06/30/23 04:18 Hct 24.9 % (42.0-54.0) L 06/30/23 04:18 MCV 74.1 fL (80.0-100.0) L 06/30/23 04:18 MCH 23.8 pg (27.0-34.0) L 06/30/23 04:18 MCHC 32.2 g/dL (33.0-35.0) L 06/30/23 04:18 RDW 18.6 % (11.6-16.5) H 06/30/23 04:18 Plt Count 339 X10^3/uL (150.0-450.0) 06/30/23 04:18 Plt Count Comment Adequate (ADEQUATE) 06/30/23 04:18 MPV 7.0 fL (7.4-11.0) L 06/30/23 04:18 Neut % (Auto) 81.8 % (42.0-75.0) H 06/30/23 04:18 Lymph % (Auto) 10.3 % (21.0-51.0) L 06/30/23 04:18 [place] % (Auto) 4.9 % (0.0-13.0) 06/30/23 04:18 Eos % (Auto) 2.7 % (0.9-2.9) 06/30/23 04:18 Baso % (Auto) 0.3 % (0.2-1.0) 06/30/23 04:18 Neut # (Auto) 8.1 x10^3/uL (2.2-4.8) H 06/30/23 04:18 Lymph # (Auto) 1.0 X10^3/uL (1.3-2.9) L 06/30/23 04:18 [place] # (Auto) 0.5 x10^3/uL (0.3-0.8) 06/30/23 04:18 Eos # (Auto) 0.3 x10^3/uL (0.0-0.2) H 06/30/23 04:18 Baso # (Auto) 0.0 X10^3/uL (0.0-0.1) 06/30/23 04:18 Absolute Nucleated RBC 0.0 /100WBC 06/30/23 04:18 Plt Morphology Comment Normal (NORMAL) 06/30/23 04:18 RBC Morphology Abnormal (NORMAL) 06/30/23 04:18 Hypochromasia 1+ A 06/30/23 04:18 Anisocytosis Slight A 06/30/23 04:18 Microcytosis Slight A 06/30/23 04:18 Ovalocytes Present 06/30/23 04:18 Stomatocytes Present 06/29/23 04:34 Acanthocytes (Spur) Present 06/30/23 04:18 Absolute Retic 0.0510 10^6/uL 06/28/23 07:50 Percent Retic 1.62 % (0.8-2.2) 06/28/23 07:50 PT 21.8 SECONDS (11.8-14.3) 06/27/23 09:24 INR Target Range - 06/27/23 09:24 INR 1.94 (0.8-1.3) H 06/27/23 09:24 APTT 42.5 SECONDS (22.9-36.5) H 06/27/23 09:24 PTT Comment - 06/27/23 09:24 Sample Site Rra 06/28/23 08:25 ABG pH 7.400 (7.35-7.45) 06/28/23 08:25 ABG pCO2 48.0 mmHg (35.0-45.0) H 06/28/23 08:25 ABG pO2 77.0 mmHg (80.0-100.0) L 06/28/23 08:25 ABG HCO3 29.7 mmol/L (22-26) H 06/28/23 08:25 ABG O2 Saturation 95.0 % (90-100) 06/28/23 08:25 ABG Base Excess 4.0 mmol/L (-2.0-2.0) H 06/28/23 08:25 Santos Test Pos 06/28/23 08:25 A-a Gradient 120.0 mmHg 06/28/23 08:25 FiO2 36.0 06/28/23 08:25 Blood Gas Comments Pt david well eb 06/28/23 08:25 Sodium 137 mmol/L (136-145) 06/30/23 04:18 Corrected Sodium 138 mmol/L (136-145) 06/30/23 04:18 Potassium 3.6 mmol/L (3.5-5.1) 06/30/23 04:18 Chloride 104 mmol/L (98-107) 06/30/23 04:18 Carbon Dioxide 30.0 mmol/L (21-32) 06/30/23 04:18 BUN 13 mg/dL (7-18) 06/30/23 04:18 Creatinine 0.70 mg/dL (0.70-1.30) 06/30/23 04:18 Est GFR (MDRD) Af Amer > 60 (>60) 06/30/23 04:18 Est GFR (MDRD) Non-Af > 60 (>60) 06/30/23 04:18 Glucose 136 mg/dL (65-99) H 06/30/23 04:18 POC Glucose (mg/dL) 164 mg/dL (65-99) H 06/28/23 16:42 Lactic Acid 0.7 mmol/L (0.4-2.0) 06/27/23 09:55 Calcium 8.5 mg/dL (8.5-10.1) 06/30/23 04:18 Corrected Calcium 10.4 mg/dL (8.5-10.1) H 06/30/23 04:18 Magnesium 2.0 mg/dL (2.0-2.9) 06/29/23 04:34 Iron 7 ug/dL (50-175) L 06/28/23 07:50 Ferritin 438 ng/mL (26-388) H 06/28/23 07:50 Total Bilirubin 0.50 mg/dL (0.2-1.0) 06/30/23 04:18 AST 24 Units/L (15-37) 06/30/23 04:18 ALT 13 Units/L (12-78) 06/30/23 04:18 Alkaline Phosphatase 113 Units/L (46-116) 06/30/23 04:18 Troponin I High Sens 17.4 ng/L (4.0-60.0) 06/27/23 09:24 B-Natriuretic Peptide 265 pg/mL (0-79) H 06/27/23 09:24 Total Protein 6.3 g/dL (6.4-8.2) L 06/30/23 04:18 Albumin 1.6 g/dL (3.4-5.0) L 06/30/23 04:18 Globulin 4.7 g/dL (2.5-4.5) H 06/30/23 04:18 Albumin/Globulin Ratio 0.3 Ratio (1.1-2.1) L 06/30/23 04:18 Amylase 35 Units/L (25-115) 06/28/23 04:30 Lipase 7 Units/L (16-77) L 06/28/23 04:30 Vitamin B12 > 2000 pg/mL (193-986) H 06/28/23 07:50 Folate 13.1 ng/mL (>8.6) 06/28/23 07:50 Homocysteine 5 umol/L (0-15) 06/28/23 07:50 Specimen Type Catherized urine 06/28/23 11:35 Urine Color Yellow (YELLOW) 06/28/23 11:35 Urine Appearance Slightly hazy (CLEAR) 06/28/23 11:35 Urine pH 5.0 (5.0 - 8.0) 06/28/23 11:35 Ur Specific [place] 1.025 (1.000-1.030) 06/28/23 11:35 Urine Protein 2+ (NEGATIVE) 06/28/23 11:35 Urine Glucose (UA) Negative (NEGATIVE) 06/28/23 11:35 Urine Ketones Negative (NEGATIVE) 06/28/23 11:35 Urine Blood Negative (NEGATIVE) 06/28/23 11:35 Urine Nitrite Negative (NEGATIVE) 06/28/23 11:35 Urine Bilirubin Negative (NEGATIVE) 06/28/23 11:35 Urine Urobilinogen Normal (NORMAL) 06/28/23 11:35 Ur Leukocyte Esterase Negative (NEGATIVE) 06/28/23 11:35 Urine RBC 0-2 /HPF (0-3) 06/28/23 11:35 Urine WBC 3-5 /HPF (0-5) 06/28/23 11:35 Ur Squamous Epith Cells Rare /HPF (NEGATIVE) 06/28/23 11:35 Amorphous Sediment Trace /HPF (NEGATIVE) 06/28/23 11:35 Urine Bacteria Trace /HPF (NEGATIVE) 06/28/23 11:35 Urine Mucus Few /HPF (NEGATIVE) 06/28/23 11:35 Urine Yeast Rare /HPF (NEGATIVE) 06/28/23 11:35 Ur Culture Indicated? No/not indicated 06/28/23 11:35 Stl Occult Blood (IFOB) Negative (NEGATIVE) 06/29/23 03:30 SARS-CoV-2 (PCR) Negative (NEGATIVE) 06/27/23 09:43 Influenza Type A (PCR) Negative (NEGATIVE) 06/27/23 09:43 Influenza Type B (PCR) Negative (NEGATIVE) 06/27/23 09:43 RSV (PCR) Negative (NEGATIVE) 06/27/23 09:43 Resp Viral Panel (PCR) See scanned report 06/27/23 13:08 Blood Type A POSITIVE 06/28/23 07:50 Antibody Screen Negative 06/28/23 07:50 Crossmatch See Detail 06/28/23 07:50 Plan (1) Pneumonia: Status: Acute Plan: Continue IV ertapenem. (2) Diabetes mellitus: Status: Chronic Qualifiers: Diabetes mellitus type: type 2 Plan: Continue regular insulin sliding scale per protocol. (3) Hypoxia: Status: Acute Plan: Continue supplemental O2 via nasal cannula. (4) Abdominal pain: Status: Acute Qualifiers: Abdominal location: upper abdomen, unspecified Qualified Code(s): R10.10 - Upper abdominal pain, unspecified (5) GERD (gastroesophageal reflux disease): Status: Chronic Qualifiers: Esophagitis presence: esophagitis presence not specified Qualified Code(s): K21.9 - Gastro-esophageal reflux disease without esophagitis (6) HTN (hypertension): Status: Chronic Qualifiers: Hypertension type: primary hypertension Qualified Code(s): I10 - Essential (primary) hypertension Plan: The patient's blood pressure is stable no change to treatment of hypertension today. (7) Anemia: Status: Acute Qualifiers: Anemia type: unspecified type Qualified Code(s): D64.9 - Anemia, unspecified Plan: Continue to monitor daily hemoglobins. The patient's hemoglobin is improving at this time.
[2023-06-30] MEDS: CYMBALTA PO SCH (20:09)
[2023-06-30] MEDS: LIPITOR TAB 20 MG PO SCH (20:09)
[2023-06-30] MEDS: DESYREL PO SCH (20:09)
[2023-06-30] MEDS ORDERED: CHRONULAC PO SCH (23:45)
[2023-07-01] MEDS: MORPHINE SULFATE INJ 2 MG INJ IVP PRN (01:06)
[2023-07-01] MEDS ORDERED: CHRONULAC PO PRN (02:06)
[2023-07-01 03:57] LABS: ABG BASE EXCESS 13.3 mmol/L (-2.0-2.0)
[2023-07-01 03:59] LABS: ABG ALLEN TEST POS; ABG HCO3 39.6 mmol/L (22-26)
--- NOTE | 2023-07-01 05:03 | RAD ---
EXAM: FRONTAL VIEW CHEST X-RAY HISTORY: Decreased oxygenation COMPARISON: June 30, 2023 FINDINGS: Multifocal consolidation is seen in the bilateral mid and lower lung zones which is worse on the righ t compared to left. Status post midline sternotomy wires with cervical fusion hardware is noted The heart size is within normal limits. The mediastinum is unremarkable. There is no evidence of pleural effusion or gross pneumothorax. The trachea is midline. IMPRESSION: 1. Multifocal consolidation is seen in the bilateral mid and lower lung zones which is worse on the r ight compared to left. This was not present on the prior exam and therefore is compatible with acute airspace disease such as infection THIS IS AN ELECTRONICALLY VERIFIED FINAL REPORT 07/01/2023 5:00 AM - Electronically signed by Hubert Davis MD
[2023-07-01] MEDS: D5 1/2 NS + KCL 20 MEQ/L 1,000 ML with MAGNESIUM SULFATE 50% INJ VIAL 1 G IV SCH ×2 (05:35)
[2023-07-01] MEDS ORDERED: VERSED ONE (05:40)
[2023-07-01] MEDS ORDERED: QUELICIN (OR ANECTINE) ONE (05:41)
[2023-07-01 05:43] LABS: ALANINE AMINOTRANSFERASE 12 Units/L (12-78); ALBUMIN 1.5 g/dL (3.4-5.0); ALKALINE PHOSPHATASE 99 Units/L (46-116); ASPARTATE AMINO TRANSFERASE 16 Units/L (15-37); BLOOD UREA NITROGEN 8 mg/dL (7-18); CALCIUM 8.2 mg/dL (8.5-10.1); CARBON DIOXIDE 33.6 mmol/L (21-32); CHLORIDE 102 mmol/L (98-107); COR CA(FOR HYPOALB) 10.2 mg/dL (8.5-10.1); COR NA(FOR HYPERGLY) 139 mmol/L (136-145); CREATININE 0.67 mg/dL (0.70-1.30); GLUCOSE 130 mg/dL (65-99); MAGNESIUM 1.6 mg/dL (2.0-2.9); SODIUM 138 mmol/L (136-145); TOTAL PROTEIN 6.2 g/dL (6.4-8.2); eGFR NON BLACK RACES > 60 (>60)
[2023-07-01 06:00] LABS: BASOPHILS % (AUTO) 0.2 % (0.2-1.0); EOSINOPHILS # (AUTO) 0.2 x10^3/uL (0.0-0.2); EOSINOPHILS % (AUTO) 2.1 % (0.9-2.9); HEMATOCRIT 25.3 % (42.0-54.0); LYMPHOCYTES # (AUTO) 1.3 X10^3/uL (1.3-2.9); LYMPHOCYTES % (AUTO) 16.9 % (21.0-51.0); MEAN CORPUSCULAR HEMOGLOBIN 23.3 pg (27.0-34.0); MEAN CORPUSCULAR HGB CONC 31.5 g/dL (33.0-35.0); MEAN CORPUSCULAR VOLUME 73.9 fL (80.0-100.0); MEAN PLATELET VOLUME 6.8 fL (7.4-11.0); MONOCYTES # (AUTO) 0.4 x10^3/uL (0.3-0.8); MONOCYTES % (AUTO) 5.2 % (0.0-13.0); NEUTROPHILS # (AUTO) 5.8 x10^3/uL (2.2-4.8); NEUTROPHILS % (AUTO) 75.6 % (42.0-75.0); PLATELET COUNT 298 X10^3/uL (150.0-450.0); RED BLOOD COUNT 3.43 X10^6/uL (4.7-6.0); RED CELL DISTRIBUTION WIDTH 18.5 % (11.6-16.5); WHITE BLOOD COUNT 7.7 X10^3/uL (3.6-10.0)
[2023-07-01] MEDS ORDERED: NS 1,000 ML IV 1,000 ML ONE (06:01)
[2023-07-01 06:09] LABS: POTASSIUM 2.9 mmol/L (3.5-5.1)
[2023-07-01] MEDS: THORAZINE TAB 25 MG PO SCH ×3 (06:46→21:35)
[2023-07-01] MEDS: DIPRIVAN PREMIX 1 GRAM IV 1,000 MG/100 ML VIAL IV PRN ×2 (07:05→19:58)
--- NOTE | 2023-07-01 07:12 | RAD ---
EXAM: AP chest HISTORY: Pneumonia COMPARISON: 06/29/2023 FINDINGS: Similar cardiomegaly. Interval improvement in aeration of the right lung with decreasing infiltrate s. Similar extent and distribution of airspace disease in the left lower lung. IMPRESSION: No new abnormality. Stable cardiomegaly and left-sided pneumonia with significant improvement in th e right lung. THIS IS AN ELECTRONICALLY VERIFIED FINAL REPORT 07/01/2023 7:09 AM - Electronically signed by Jordy Carrillo MD
[2023-07-01 07:35] LABS: ANISOCYTOSIS SLIGHT; HYPOCHROMASIA 1+; MICROCYTOSIS SLIGHT; PLATELET MORPHOLOGY COMMENT NORMAL (NORMAL)
[2023-07-01 07:37] LABS: OVALOCYTES PRESENT
[2023-07-01] MEDS: LASIX IVP SCH ×2 (08:19→17:07)
[2023-07-01] MEDS: INVanz INJ 1 GRAM VIAL 1 G in NS 100 ML IV 100 ML IV SCH (08:19)
[2023-07-01] MEDS: ZITHROMAX INJ 500 MG VIAL 500 MG in D5W 250 ML IV 250 ML IV SCH (08:19)
[2023-07-01] MEDS: PROTONIX INJ 40 MG VIAL IVP SCH ×2 (08:20→21:34)
[2023-07-01] MEDS: COREG TAB 12.5 MG PO SCH ×2 (08:21→21:36)
[2023-07-01] MEDS: DUONEB 0.5 MG/3 MG (3 mL) NEB SCH ×4 (09:00→21:04)
[2023-07-01] MEDS: PULMICORT NEB TX 0.5 MG NEB SCH ×2 (09:00→21:04)
[2023-07-01 09:08] LABS: ABG BASE EXCESS 13.3 mmol/L (-2.0-2.0); ABG HCO3 36.6 mmol/L (22-26)
[2023-07-01 09:09] LABS: ABG ALLEN TEST POS
--- NOTE | 2023-07-01 10:19 | RAD ---
EXAM:CHEST 07/01/2023 5:58 a.m.HISTORY:ET TUBE PLACEMENT CHECK ; LLL PNEUMONIA, RESPIRATORY DISTRESS, AMSCOMPARISON:Chest 07/01/2023 3:43 a.m., 06/30/2023.TECHNIQUE:Frontal view of the chest was submitted for interpretation.FINDINGS:Endotracheal tube has been placed, tip well positioned over the mid trachea. Overlying traffic monitor specialist leads are noted. Sternotomy sutures and CABG vascular markers are noted. The cardiomediastinal silhouette is within normal limits. Persistent perihilar and lower lobe airspace disease similar to recent studies. No large effusion, or pneumothorax.IMPRESSION:Interval intubation, tip of the ETT well positioned over the mid trachea.No change in bilateral perihilar and lower lobe airspace opacitiesTHIS IS AN ELECTRONICALLY VERIFIED FINAL REPORT07/01/2023 10:08 AM - Electronically signed by Domingo Parkinson MD
[2023-07-01] MEDS: D5 IV SCH ×6 (11:00→21:32)
[2023-07-01] MEDS: 1/2 NS IV SCH ×6 (11:00→21:32)
[2023-07-01] MEDS: MAGNESIUM SULFATE IV SCH ×6 (11:00→21:32)
[2023-07-01] MEDS: KCL IV SCH ×6 (11:00→21:32)
[2023-07-01] MEDS: [UNRECOGNIZED DRUG - OTHER] IV SCH ×6 (11:00→21:32)
[2023-07-01] MEDS ORDERED: NS 100 ML IV 100 ML ONE (12:14)
--- NOTE | 2023-07-01 17:06 | PCM.PROG ---
Progress Note Progress Note for Day of Date of Exam: 07/01/23 Subjective Subjective: PT IS 78 WM, ER ADMISSION WITH PNEUMONIA AND RESPIRATORY DISTRESS. This is a patient of Dr. Goldstein's who was admitted through the emergency department with pneumonia respiratory distress. He has been getting better. Yesterday morning, he was feeling better since he was admitted to the hospital. We moved him to the floor and late yesterday afternoon he developed more rhonchi. Through the night his breathing became worse and he started desatting around 4-4 30 this morning. Because of that we had respiratory intubated and admitted back to the ICU. This morning he is resting comfortably on the ventilator and his chest x-ray this morning shows that he has multifocal pneumonia. His ABG showed his PaO2 is 77 with a pCO2 in the 40s. We ordered repeat blood cultures x 2, urinalysis with C&S to be done today. The patient is a full code at this time, so we will continue him on his broad-spectrum antibiotics, which are Invanz and levofloxacin. I will also have the nurses dra lola WALKER today. Past Medical Family Social History Allergies: Allergies codeine Allergy (Verified 10/10/21 16:28) meperidine [From Demerol] Allergy (Verified 10/10/21 16:28) Review of Systems ROS: No change since H&P Vital Signs and I&O's Vital Signs: Vital Signs Temperature 98.0 F Temperature 97.8 F Pulse Rate 61 Pulse Rate 59 Pulse Rate 60 Pulse Rate 59 Pulse Rate 61 Pulse Rate 61 Pulse Rate 62 Pulse Rate 61 Pulse Rate 60 Pulse Rate 61 Pulse Rate 60 Pulse Rate 62 Pulse Rate 60 Pulse Rate 61 Pulse Rate 60 Pulse Rate 60 Pulse Rate 62 Pulse Rate 62 Pulse Rate 62 Pulse Rate 61 Pulse Rate 62 Pulse Rate 62 Pulse Rate 62 Pulse Rate 62 Pulse Rate 63 Pulse Rate 61 Pulse Rate 64 Respiratory Rate 14 Respiratory Rate 15 Respiratory Rate 23 Respiratory Rate 23 Respiratory Rate 15 Respiratory Rate 14 Respiratory Rate 14 Respiratory Rate 14 Respiratory Rate 14 Respiratory Rate 14 Respiratory Rate 18 Respiratory Rate 22 Respiratory Rate 18 Respiratory Rate 23 Respiratory Rate 19 Respiratory Rate 17 Respiratory Rate 16 Respiratory Rate 17 Respiratory Rate 22 Respiratory Rate 21 Respiratory Rate 19 Respiratory Rate 15 Respiratory Rate 14 Respiratory Rate 14 Respiratory Rate 14 Respiratory Rate 14 Blood Pressure 79/52 Blood Pressure 91/52 Blood Pressure 104/57 Blood Pressure 85/51 Blood Pressure 78/49 Blood Pressure 79/50 Blood Pressure 92/52 Blood Pressure 93/52 Blood Pressure 93/52 Blood Pressure 90/50 Blood Pressure 90/50 Blood Pressure 90/52 Blood Pressure 81/52 Blood Pressure 108/60 O2 Sat by Pulse Oximetry 95 O2 Sat by Pulse Oximetry 94 O2 Sat by Pulse Oximetry 94 O2 Sat by Pulse Oximetry 94 O2 Sat by Pulse Oximetry 95 O2 Sat by Pulse Oximetry 95 O2 Sat by Pulse Oximetry 95 O2 Sat by Pulse Oximetry 96 O2 Sat by Pulse Oximetry 96 O2 Sat by Pulse Oximetry 95 O2 Sat by Pulse Oximetry 96 O2 Sat by Pulse Oximetry 97 O2 Sat by Pulse Oximetry 98 O2 Sat by Pulse Oximetry 97 O2 Sat by Pulse Oximetry 96 O2 Sat by Pulse Oximetry 97 O2 Sat by Pulse Oximetry 95 O2 Sat by Pulse Oximetry 96 O2 Sat by Pulse Oximetry 96 O2 Sat by Pulse Oximetry 95 O2 Sat by Pulse Oximetry 95 O2 Sat by Pulse Oximetry 96 O2 Sat by Pulse Oximetry 95 O2 Sat by Pulse Oximetry 95 O2 Sat by Pulse Oximetry 96 O2 Sat by Pulse Oximetry 95 O2 Sat by Pulse Oximetry 96 Intake and Output: Intake & Output 06/29/23 06/30/23 07/01/23 07/02/23 11:59 11:59 11:59 11:59 Intake Total 2355 / 2355 2795 / 2795 2241 / 2241 900 / 900 Output Total 2150 / 2150 2500 / 2500 2500 / 2500 500 / 500 Balance 205 / 205 295 / 295 -259 / -259 400 / 400 Physical Exam Oriented: Person Eyes: Normal Ear: Normal Nose: Normal Throat: Dry Respiratory: Diminished and Rhonchi Cardiovascular: Normal : Frequency Tenderness: RUQ, RLQ, Mild, Rebound and Guarding Skin: Decreased Turgur and Bruising Musculoskeletal: Motor Deficit Mood Description: Anxious Speech Pattern: Artificially Ventilated Laboratory and Diagnostics 07/01/23 04:56 07/01/23 04:56 Labs: 07/01/23 09:00 Sputum - Expectorated Sputum - Final 06/27/23 09:55 Blood Blood Culture - Preliminary 06/27/23 09:50 Blood Blood Culture - Preliminary Laboratory WBC 7.7 X10^3/uL (3.6-10.0) 07/01/23 04:56 RBC 3.43 X10^6/uL (4.7-6.0) L 07/01/23 04:56 Hgb 8.0 g/dL (13.5-18.0) L 07/01/23 04:56 Hct 25.3 % (42.0-54.0) L 07/01/23 04:56 MCV 73.9 fL (80.0-100.0) L 07/01/23 04:56 MCH 23.3 pg (27.0-34.0) L 07/01/23 04:56 MCHC 31.5 g/dL (33.0-35.0) L 07/01/23 04:56 RDW 18.5 % (11.6-16.5) H 07/01/23 04:56 Plt Count 298 X10^3/uL (150.0-450.0) 07/01/23 04:56 Plt Count Comment Adequate (ADEQUATE) 07/01/23 04:56 MPV 6.8 fL (7.4-11.0) L 07/01/23 04:56 Neut % (Auto) 75.6 % (42.0-75.0) H 07/01/23 04:56 Lymph % (Auto) 16.9 % (21.0-51.0) L 07/01/23 04:56 [place] % (Auto) 5.2 % (0.0-13.0) 07/01/23 04:56 Eos % (Auto) 2.1 % (0.9-2.9) 07/01/23 04:56 Baso % (Auto) 0.2 % (0.2-1.0) 07/01/23 04:56 Neut # (Auto) 5.8 x10^3/uL (2.2-4.8) H 07/01/23 04:56 Lymph # (Auto) 1.3 X10^3/uL (1.3-2.9) 07/01/23 04:56 [place] # (Auto) 0.4 x10^3/uL (0.3-0.8) 07/01/23 04:56 Eos # (Auto) 0.2 x10^3/uL (0.0-0.2) 07/01/23 04:56 Baso # (Auto) 0.0 X10^3/uL (0.0-0.1) 07/01/23 04:56 Absolute Nucleated RBC 0.1 /100WBC 07/01/23 04:56 Plt Morphology Comment Normal (NORMAL) 07/01/23 04:56 RBC Morphology Abnormal (NORMAL) 07/01/23 04:56 Hypochromasia 1+ A 07/01/23 04:56 Anisocytosis Slight A 07/01/23 04:56 Microcytosis Slight A 07/01/23 04:56 Ovalocytes Present 07/01/23 04:56 Stomatocytes Present 06/29/23 04:34 Acanthocytes (Spur) Present 07/01/23 04:56 Absolute Retic 0.0510 10^6/uL 06/28/23 07:50 Percent Retic 1.62 % (0.8-2.2) 06/28/23 07:50 PT 21.8 SECONDS (11.8-14.3) 06/27/23 09:24 INR Target Range - 06/27/23 09:24 INR 1.94 (0.8-1.3) H 06/27/23 09:24 APTT 42.5 SECONDS (22.9-36.5) H 06/27/23 09:24 PTT Comment - 06/27/23 09:24 Sample Site [place] 07/01/23 08:57 ABG pH 7.570 (7.35-7.45) H* 07/01/23 08:57 ABG pCO2 40.0 mmHg (35.0-45.0) 07/01/23 08:57 ABG pO2 77.0 mmHg (80.0-100.0) L 07/01/23 08:57 ABG HCO3 36.6 mmol/L (22-26) H* 07/01/23 08:57 ABG O2 Saturation 97.0 % (90-100) 07/01/23 08:57 ABG Base Excess 13.3 mmol/L (-2.0-2.0) H 07/01/23 08:57 Santos Test Pos 07/01/23 08:57 A-a Gradient 230.0 mmHg 07/01/23 08:57 FiO2 50.0 07/01/23 08:57 Blood Gas Comments Pt david well elj 07/01/23 08:57 Sodium 138 mmol/L (136-145) 07/01/23 04:56 Corrected Sodium 139 mmol/L (136-145) 07/01/23 04:56 Potassium 2.9 mmol/L (3.5-5.1) L* 07/01/23 04:56 Chloride 102 mmol/L (98-107) 07/01/23 04:56 Carbon Dioxide 33.6 mmol/L (21-32) H 07/01/23 04:56 BUN 8 mg/dL (7-18) 07/01/23 04:56 Creatinine 0.67 mg/dL (0.70-1.30) L 07/01/23 04:56 Est GFR (MDRD) Af Amer > 60 (>60) 07/01/23 04:56 Est GFR (MDRD) Non-Af > 60 (>60) 07/01/23 04:56 Glucose 130 mg/dL (65-99) H 07/01/23 04:56 POC Glucose (mg/dL) 98 mg/dL (65-99) 07/01/23 16:25 Lactic Acid 0.7 mmol/L (0.4-2.0) 06/27/23 09:55 Calcium 8.2 mg/dL (8.5-10.1) L 07/01/23 04:56 Corrected Calcium 10.2 mg/dL (8.5-10.1) H 07/01/23 04:56 Magnesium 1.6 mg/dL (2.0-2.9) L 07/01/23 04:56 Iron 7 ug/dL (50-175) L 06/28/23 07:50 Ferritin 438 ng/mL (26-388) H 06/28/23 07:50 Total Bilirubin 0.40 mg/dL (0.2-1.0) 07/01/23 04:56 AST 16 Units/L (15-37) 07/01/23 04:56 ALT 12 Units/L (12-78) 07/01/23 04:56 Alkaline Phosphatase 99 Units/L (46-116) 07/01/23 04:56 Troponin I High Sens 17.4 ng/L (4.0-60.0) 06/27/23 09:24 B-Natriuretic Peptide 265 pg/mL (0-79) H 06/27/23 09:24 Total Protein 6.2 g/dL (6.4-8.2) L 07/01/23 04:56 Albumin 1.5 g/dL (3.4-5.0) L 07/01/23 04:56 Globulin 4.7 g/dL (2.5-4.5) H 07/01/23 04:56 Albumin/Globulin Ratio 0.3 Ratio (1.1-2.1) L 07/01/23 04:56 Amylase 35 Units/L (25-115) 06/28/23 04:30 Lipase 7 Units/L (16-77) L 06/28/23 04:30 Vitamin B12 > 2000 pg/mL (193-986) H 06/28/23 07:50 Folate 13.1 ng/mL (>8.6) 06/28/23 07:50 Homocysteine 5 umol/L (0-15) 06/28/23 07:50 Specimen Type Catherized urine 06/28/23 11:35 Urine Color Yellow (YELLOW) 06/28/23 11:35 Urine Appearance Slightly hazy (CLEAR) 06/28/23 11:35 Urine pH 5.0 (5.0 - 8.0) 06/28/23 11:35 Ur Specific [place] 1.025 (1.000-1.030) 06/28/23 11:35 Urine Protein 2+ (NEGATIVE) 06/28/23 11:35 Urine Glucose (UA) Negative (NEGATIVE) 06/28/23 11:35 Urine Ketones Negative (NEGATIVE) 06/28/23 11:35 Urine Blood Negative (NEGATIVE) 06/28/23 11:35 Urine Nitrite Negative (NEGATIVE) 06/28/23 11:35 Urine Bilirubin Negative (NEGATIVE) 06/28/23 11:35 Urine Urobilinogen Normal (NORMAL) 06/28/23 11:35 Ur Leukocyte Esterase Negative (NEGATIVE) 06/28/23 11:35 Urine RBC 0-2 /HPF (0-3) 06/28/23 11:35 Urine WBC 3-5 /HPF (0-5) 06/28/23 11:35 Ur Squamous Epith Cells Rare /HPF (NEGATIVE) 06/28/23 11:35 Amorphous Sediment Trace /HPF (NEGATIVE) 06/28/23 11:35 Urine Bacteria Trace /HPF (NEGATIVE) 06/28/23 11:35 Urine Mucus Few /HPF (NEGATIVE) 06/28/23 11:35 Urine Yeast Rare /HPF (NEGATIVE) 06/28/23 11:35 Ur Culture Indicated? No/not indicated 06/28/23 11:35 Stl Occult Blood (IFOB) Negative (NEGATIVE) 06/29/23 03:30 SARS-CoV-2 (PCR) Negative (NEGATIVE) 07/01/23 10:43 Influenza Type A (PCR) Negative (NEGATIVE) 07/01/23 10:43 Influenza Type B (PCR) Negative (NEGATIVE) 07/01/23 10:43 RSV (PCR) Negative (NEGATIVE) 07/01/23 10:43 Resp Viral Panel (PCR) See scanned report 06/27/23 13:08 Blood Type A POSITIVE 06/28/23 07:50 Antibody Screen Negative 06/28/23 07:50 Crossmatch See Detail 06/28/23 07:50 Radiology Reviewed: Yes Plan (1) Respiratory failure: Status: Acute Plan: Continue the patient on the ventilator at this time. The patient is a full code. He has multifocal pneumonia causing his respiratory failure. I will add IV tobramycin today. We will continue his IV Invanz. (2) Pneumonia: Status: Acute Plan: Continue IV ertapenem. I will add IV tobramycin. (3) Hypokalemia: Status: Acute Plan: With potassium replacement protocol. (4) Diabetes mellitus: Status: Chronic Qualifiers: Diabetes mellitus type: type 2 Plan: Continue regular insulin sliding scale per protocol. (5) Hypoxia: Status: Acute Plan: Continue supplemental O2 via nasal cannula. (6) Abdominal pain: Status: Acute Qualifiers: Abdominal location: upper abdomen, unspecified Qualified Code(s): R10.10 - Upper abdominal pain, unspecified (7) GERD (gastroesophageal reflux disease): Status: Chronic Qualifiers: Esophagitis presence: esophagitis presence not specified Qualified Code(s): K21.9 - Gastro-esophageal reflux disease without esophagitis (8) HTN (hypertension): Status: Chronic Qualifiers: Hypertension type: primary hypertension Qualified Code(s): I10 - Essential (primary) hypertension Plan: The patient's blood pressure is stable no change to treatment of hypertension today. (9) Anemia: Status: Acute Qualifiers: Anemia type: unspecified type Qualified Code(s): D64.9 - Anemia, unspecified Plan: Continue to monitor daily hemoglobins. The patient's hemoglobin is improving at this time.
[2023-07-01] MEDS ORDERED: CONSULT PHARMACY - GENTAMICIN XX SCH (18:00)
[2023-07-01] MEDS: NS IV SCH (18:23)
[2023-07-01] MEDS: GENTAMICIN IV SCH (18:23)
[2023-07-01] MEDS: LIPITOR TAB 20 MG PO SCH (21:36)
[2023-07-01] MEDS: DESYREL PO SCH (21:36)
[2023-07-01] MEDS: CYMBALTA PO SCH (21:36)
[2023-07-01] MEDS: BUTT CREAM (COMPOUND) TOP PRN (21:49)
[2023-07-02] MEDS ORDERED: DUKE'S Magic Mouthwash (nyst/dex/ben/doxyc) MT PRN (00:43)
[2023-07-02] MEDS: VERSED 50 MG in NS 50 ML IV 40 ML IV PRN ×2 (01:06→12:06)
[2023-07-02] MEDS: 1/2 NS IV SCH ×3 (01:17)
[2023-07-02] MEDS: D5 IV SCH ×3 (01:17)
[2023-07-02] MEDS: MAGNESIUM SULFATE IV SCH ×3 (01:17)
[2023-07-02] MEDS: [UNRECOGNIZED DRUG - OTHER] IV SCH ×3 (01:17)
[2023-07-02] MEDS: KCL IV SCH ×3 (01:17)
[2023-07-02] MEDS: GENTAMICIN IV SCH ×3 (01:29→17:36)
[2023-07-02] MEDS: NS IV SCH ×3 (01:29→17:36)
[2023-07-02] MEDS: DIPRIVAN PREMIX 1 GRAM IV 1,000 MG/100 ML VIAL IV PRN ×2 (02:50→18:12)
[2023-07-02 05:18] LABS: BASOPHILS % (AUTO) 0.2 % (0.2-1.0); EOSINOPHILS # (AUTO) 0.2 x10^3/uL (0.0-0.2); EOSINOPHILS % (AUTO) 2.7 % (0.9-2.9); HEMATOCRIT 23.9 % (42.0-54.0); HEMOGLOBIN 7.6 g/dL (13.5-18.0); LYMPHOCYTES # (AUTO) 1.6 X10^3/uL (1.3-2.9); LYMPHOCYTES % (AUTO) 19.9 % (21.0-51.0); MEAN CORPUSCULAR HEMOGLOBIN 23.3 pg (27.0-34.0); MEAN CORPUSCULAR HGB CONC 31.9 g/dL (33.0-35.0); MEAN CORPUSCULAR VOLUME 73.1 fL (80.0-100.0); MEAN PLATELET VOLUME 6.7 fL (7.4-11.0); MONOCYTES # (AUTO) 0.5 x10^3/uL (0.3-0.8); MONOCYTES % (AUTO) 6.4 % (0.0-13.0); NEUTROPHILS # (AUTO) 5.8 x10^3/uL (2.2-4.8); NEUTROPHILS % (AUTO) 70.8 % (42.0-75.0); PLATELET COUNT 306 X10^3/uL (150.0-450.0); RED BLOOD COUNT 3.27 X10^6/uL (4.7-6.0); RED CELL DISTRIBUTION WIDTH 19.4 % (11.6-16.5); WHITE BLOOD COUNT 8.2 X10^3/uL (3.6-10.0)
[2023-07-02] MEDS: THORAZINE TAB 25 MG PO SCH (05:19)
[2023-07-02 05:25] LABS: ABG BASE EXCESS 14.3 mmol/L (-2.0-2.0)
[2023-07-02 05:28] LABS: ALANINE AMINOTRANSFERASE 10 Units/L (12-78); ALBUMIN 1.4 g/dL (3.4-5.0); ALKALINE PHOSPHATASE 94 Units/L (46-116); ASPARTATE AMINO TRANSFERASE 14 Units/L (15-37); BLOOD UREA NITROGEN 11 mg/dL (7-18); CALCIUM 7.7 mg/dL (8.5-10.1); CARBON DIOXIDE 32.8 mmol/L (21-32); CHLORIDE 107 mmol/L (98-107); COR CA(FOR HYPOALB) 9.8 mg/dL (8.5-10.1); CREATININE 0.79 mg/dL (0.70-1.30); GLUCOSE 95 mg/dL (65-99); MAGNESIUM 1.7 mg/dL (2.0-2.9); POTASSIUM 3.1 mmol/L (3.5-5.1); SODIUM 147 mmol/L (136-145); TOTAL PROTEIN 5.8 g/dL (6.4-8.2); eGFR NON BLACK RACES > 60 (>60)
[2023-07-02 05:28] LABS: ABG ALLEN TEST POS; ABG HCO3 37.5 mmol/L (22-26)
[2023-07-02 06:14] LABS: ANISOCYTOSIS SLIGHT; BURR CELLS PRESENT; HYPOCHROMASIA 1+; MICROCYTOSIS SLIGHT; OVALOCYTES PRESENT; PLATELET MORPHOLOGY COMMENT NORMAL (NORMAL)
[2023-07-02] MEDS ORDERED: CONSULT PHARMACY - POTASSIUM & MAGNESIUM XX SCH ×2 (07:00→08:00)
--- NOTE | 2023-07-02 07:26 | RAD ---
EXAM: Follow-up respiratory failure HISTORY: Chest AP portable COMPARISON: 06/23/2023 FINDINGS: There is an endotracheal tube in good position. Patient is status post median sternotomy. Heart i s enlarged. No congestive heart failure is identified. No definite acute alveolar infiltrates are i dentified. Bibasilar subsegmental atelectasis is present. IMPRESSION: Cardiomegaly without congestive heart failure Bibasilar subsegmental atelectasis No definite acute infiltrates THIS IS AN ELECTRONICALLY VERIFIED FINAL REPORT 07/02/2023 7:23 AM - Electronically signed by Reji Damon MD
[2023-07-02] MEDS: LASIX IVP SCH ×2 (08:49→16:48)
[2023-07-02] MEDS: INVanz INJ 1 GRAM VIAL 1 G in NS 100 ML IV 100 ML IV SCH (08:49)
[2023-07-02] MEDS: COREG TAB 12.5 MG PO SCH (08:50)
[2023-07-02] MEDS: PROTONIX INJ 40 MG VIAL IVP SCH ×2 (08:50→21:01)
[2023-07-02] MEDS: LACRI-LUBE S.O.P. AFFEYE SCH ×2 (08:50→21:05)
[2023-07-02] MEDS ORDERED: K-RIDER 10 MEQ/100 ML WATER 10 MEQ/100 ML BAG IV SCH (09:00)
[2023-07-02] MEDS ORDERED: MAGNESIUM SULFATE 1 GRAM/100 mL PREMIX 1 G/100 ML BAG IV SCH (09:00)
[2023-07-02] MEDS: DUONEB 0.5 MG/3 MG (3 mL) NEB SCH ×4 (09:16→20:15)
[2023-07-02] MEDS: PULMICORT NEB TX 0.5 MG NEB SCH ×2 (09:16→20:15)
[2023-07-02] MEDS ORDERED: PHARMACY COMMENT IV NR ×2 (11:30→17:30)
[2023-07-02] MEDS: DIFLUCAN 200 MG IV PREMIX* 200 MG/100 ML BAG IV SCH (14:21)
[2023-07-02 17:31] LABS: CREATININE 0.93 mg/dL (0.70-1.30)
[2023-07-02 17:35] LABS: GENTAMICIN,TROUGH 3.9 ug/mL (0-1.9)
[2023-07-03] MEDS: KCL IV SCH ×3 (02:30)
[2023-07-03] MEDS: 1/2 NS IV SCH ×3 (02:30)
[2023-07-03] MEDS: MAGNESIUM SULFATE IV SCH ×3 (02:30)
[2023-07-03] MEDS: [UNRECOGNIZED DRUG - OTHER] IV SCH ×3 (02:30)
[2023-07-03] MEDS: D5 IV SCH ×3 (02:30)
[2023-07-03] MEDS ORDERED: PHARMACY COMMENT IV NR (04:30)
[2023-07-03 04:31] VITALS: TEMP 98.4
[2023-07-03] MEDS ORDERED: GENTAMICIN IV SCH (05:00)
[2023-07-03] MEDS ORDERED: NS IV SCH (05:00)
[2023-07-03 05:05] LABS: BASOPHILS % (AUTO) 0.2 % (0.2-1.0); EOSINOPHILS # (AUTO) 0.1 x10^3/uL (0.0-0.2); EOSINOPHILS % (AUTO) 1.6 % (0.9-2.9); HEMATOCRIT 25.5 % (42.0-54.0); HEMOGLOBIN 8.3 g/dL (13.5-18.0); LYMPHOCYTES # (AUTO) 1.3 X10^3/uL (1.3-2.9); LYMPHOCYTES % (AUTO) 16.2 % (21.0-51.0); MEAN CORPUSCULAR HEMOGLOBIN 23.5 pg (27.0-34.0); MEAN CORPUSCULAR HGB CONC 32.4 g/dL (33.0-35.0); MEAN CORPUSCULAR VOLUME 72.5 fL (80.0-100.0); MEAN PLATELET VOLUME 6.6 fL (7.4-11.0); MONOCYTES # (AUTO) 0.7 x10^3/uL (0.3-0.8); NEUTROPHILS # (AUTO) 6.2 x10^3/uL (2.2-4.8); PLATELET COUNT 322 X10^3/uL (150.0-450.0); RED BLOOD COUNT 3.52 X10^6/uL (4.7-6.0); RED CELL DISTRIBUTION WIDTH 19.7 % (11.6-16.5); WHITE BLOOD COUNT 8.3 X10^3/uL (3.6-10.0)
[2023-07-03 05:08] LABS: CREATININE 0.93 mg/dL (0.70-1.30); GENTAMICIN,TROUGH 1.8 ug/mL (0-1.9)
[2023-07-03 05:17] LABS: ALANINE AMINOTRANSFERASE 10 Units/L (12-78); ALBUMIN 1.5 g/dL (3.4-5.0); ALKALINE PHOSPHATASE 104 Units/L (46-116); ASPARTATE AMINO TRANSFERASE 15 Units/L (15-37); BLOOD UREA NITROGEN 11 mg/dL (7-18); CHLORIDE 103 mmol/L (98-107); COR NA(FOR HYPERGLY) 141 mmol/L (136-145); GLUCOSE 132 mg/dL (65-99); POTASSIUM 3.2 mmol/L (3.5-5.1); SODIUM 140 mmol/L (136-145); TOTAL PROTEIN 6.3 g/dL (6.4-8.2); eGFR NON BLACK RACES > 60 (>60)
[2023-07-03 05:44] LABS: ANISOCYTOSIS SLIGHT; BAND NEUTROPHILS % 1 % (0-10); HYPOCHROMASIA 1+; MICROCYTOSIS SLIGHT; OVALOCYTES PRESENT; PLATELET MORPHOLOGY COMMENT NORMAL (NORMAL)
[2023-07-03 05:48] LABS: ABG ALLEN TEST POS; ABG BASE EXCESS 12.6 mmol/L (-2.0-2.0); ABG HCO3 35.7 mmol/L (22-26)
[2023-07-03] MEDS ORDERED: CONSULT PHARMACY - POTASSIUM & MAGNESIUM XX SCH (06:00)
--- NOTE | 2023-07-03 07:25 | RAD ---
EXAM: CHEST, 1 VIEW HISTORY: VENTILATOR PROTOCOL ; CAD, DM, HTN, BRAIN CANCER, PANCREATITIS, MENINGITIS SX: CABG/VALVE, ORTHO COMPARISON: No relevant prior studies were available for comparison at the time of interpretation. TECHNIQUE: CHEST, 1 VIEW FINDINGS: Chest: Lines and tubes: Endotracheal tube tip is 7 cm above the annabelle. No enteric tube is present. Mediastinum: Median sternotomy wires are present. Cardiac shadow is normal in size. Pulmonary vessels: No pulmonary vascular congestion. Lung iqbal: Reticular opacities noted in both bases Pleura: No effusion. No pneumothorax. Bones and soft tissues: No acute osseous or soft tissue abnormality. IMPRESSION: 1. ET tube projects 7 cm above the annabelle. Advancement could be considered if indicated. 2. Bibasilar atelectasis 3. No suspicious airspace opacities THIS IS AN ELECTRONICALLY VERIFIED FINAL REPORT 07/03/2023 7:22 AM - Electronically signed by Jules Wesley MD
[2023-07-03] MEDS ORDERED: MAGNESIUM SULFATE 1 GRAM/100 mL PREMIX 1 G/100 ML BAG IV SCH (09:00)
[2023-07-03] MEDS ORDERED: K-RIDER 10 MEQ/100 ML WATER 10 MEQ/100 ML BAG IV SCH (09:00)
[2023-07-03] MEDS: PULMICORT NEB TX 0.5 MG NEB SCH (09:05)
[2023-07-03] MEDS: DUONEB 0.5 MG/3 MG (3 mL) NEB SCH (09:05)
[2023-07-03] MEDS: VERSED 50 MG in NS 50 ML IV 40 ML IV PRN ×3 (09:22)
[2023-07-03] MEDS: DIPRIVAN PREMIX 1 GRAM IV 1,000 MG/100 ML VIAL IV PRN (09:23)
[2023-07-03] MEDS: DIFLUCAN 200 MG IV PREMIX* 200 MG/100 ML BAG IV SCH (09:24)
[2023-07-03] MEDS: PROTONIX INJ 40 MG VIAL IVP SCH (09:24)
[2023-07-03] MEDS: LACRI-LUBE S.O.P. AFFEYE SCH (09:25)
[2023-07-03] MEDS: LASIX IVP SCH (09:25)
[2023-07-03] MEDS: INVanz INJ 1 GRAM VIAL 1 G in NS 100 ML IV 100 ML IV SCH (09:25)
[2023-07-03] MEDS ORDERED: OMNIPAQUE 350 mg/mL 100 mL BTL 100 ML ONE (10:28)
--- NOTE | 2023-07-03 11:46 | CT ---
EXAM:ABDCMEN/PELVIS WITH CONHISTORY:LUNG/BRAIN CA, ABD PAIN ;COMPARISON:CT abdomen and pelvis 06/15/2023TECHNIQUE:Multiple CT axial images of the abdomen and pelvis were obtained with IV contrast. Coronal and sagittal images were reconstructed. Dose reduction techniques included Automated Exposure Control (AEC) and adjustment of mA and kV.FINDINGS:General size of the pancreas has decreased since the prior study likely representing improved pancreatitis. There is less retroperitoneal edema.Multiple cystic changes are present throughout pancreas largest measures 4.0 cm, not changed from prior study. These may be pseudocysts.No significant pleural effusion. There is consolidation in posterior right and left lower lobes suggesting atelectasis or pneumonia. Cardiomegaly is present. Atherosclerotic calcification is present in the coronary arteries.The liver is normal in size and configuration. The gallbladder has no inflammation around it. The spleen is normal in size and shape.The adrenal glands are normal. Renal enhancement is uniform and symmetric with no solid mass. There is no hydronephrosis or significant perirenal edema. Urinary bladder is contracted around a Guzman balloon catheter.The bowel is not dilated. There is no wall thickening in the bowel or edema around the bowel. There are diverticula in the colon. But there is no wall thickening or pericolonic edema to suggest acute diverticulitis. Minimal presacral edema is unchanged.Mild levoconvex scoliosis. Degenerative changes are present in the spine. Bilateral hip prosthesis are noted. Median sternotomy fixation hardware is present. L5-S1 spondylolysis and spondylolisthesis are stable.IMPRESSION:1. Improved pancreatitis2. 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 Basilar atelectasis or pneumonia4. Colonic diverticulaTHIS IS AN ELECTRONICALLY VERIFIED FINAL REPORT07/03/2023 11:43 AM - Electronically signed by Jordan Lowery MD
--- NOTE | 2023-07-03 11:47 | CT ---
EXAM:CT brain without IV contrastHISTORY:UNRESPONSIVE; -COMPARISON:CT 06/17/2023TECHNIQUE:Multiple axial images of the brain were obtained without IV contrast. Dose reduction techniques including Automated Exposure Control (AEC) and adjustment of mA and kV were utilized.FINDINGS:Small retention cysts are seen in the left maxillary sinus. No air-fluid levels are seen in the paranasal sinuses or mastoid air cells. Patient is intubated. Large craniectomy defect is seen in the frontal region.Persistent low-density subdural fluid collection is seen deep to the craniectomy defect this is probably an ex vacuo hygroma. There is prominent diffuse volume loss in the brain with compensatory enlargement of the ventricular system. Persistent area of gliosis or vasogenic edema is seen in the right frontal white matter. There is no mass effect suggesting this is more likely gliosis. Similar, less prominent changes are seen in the left frontal white matter.No evidence of acute intracranial hemorrhage is seen. Atherosclerotic calcifications are seen in the distal vertebral arteries and distal ICAs.IMPRESSION:Appearance of the brain is unchanged.THIS IS AN ELECTRONICALLY VERIFIED FINAL REPORT07/03/2023 11:44 AM - Electronically signed by De Joseph MD
--- NOTE | 2023-07-03 12:18 | CT ---
EXAM: CHEST WITH CONTRAST HISTORY: HX LUNG CA, SOB; COMPARISON: Chest CT 12/31/2022 TECHNIQUE: Multiple CT axial images of the chest were obtained with IV contrast. Coronal and sagittal images we re reconstructed. Dose reduction techniques included Automated Exposure Control (AEC) and adjustment of mA and kV. FINDINGS: Cardiomegaly is present. Atherosclerotic calcification is present in the coronary arteries. Moderat wolfgang dilated ascending aorta measures 4.0 cm, unchanged from previous exam. Pulmonary artery has a no rmal caliber. No mediastinal mass or significant lymphadenopathy. The thyroid has a normal size and configuration. No axillary mass or significant axillary lymphadeno jamshid is identified. Trace bilateral pleural effusions are present. There is consolidation in the dependent lungs bilater ally. Minimal ground-glass opacity near the same vicinity. This could be atelectasis or pneumonia. See CT abdomen and pelvis report same day for additional findings. IMPRESSION: 1. Basilar atelectasis or pneumonia 2. Stable moderately dilated ascending aorta 3. Stable cardiomegaly THIS IS AN ELECTRONICALLY VERIFIED FINAL REPORT 07/03/2023 12:15 PM - Electronically signed by Jordan Lowery MD
[2023-07-03 14:15] VITALS: BP 106/65; PULSE 74; RESP 15; O2SAT 94
--- NOTE | 2023-07-03 16:03 | RAD ---
EXAM:KUB x-ray one viewHISTORY:NG Tube placement -COMPARISON:CT 07/03/2023FINDINGS:No nasogastric tube is identified. It should be repositioned. Mild increased colonic air is seen in the left side of the abdomen.IMPRESSION:No nasogastric tube is identified in the abdomen. It should be repositioned.THIS IS AN ELECTRONICALLY VERIFIED FINAL REPORT07/03/2023 3:59 PM - Electronically signed by De Joseph MD
== END 2023-07-03 14:10 | disposition short-term general hospital (02) | DRG 208 ==
LOC: ER 09:18 → ICU 11:32 → MED/SURG 06-30 10:47 → ICU 07-01 05:15
PROVIDERS: ADMIT Internal Medicine; ATTEND Internal Medicine
DX: E83.42 Hypomagnesemia; R10.84 Generalized abdominal pain; I50.9 Heart failure, unspecified; K21.9 Gastro-esophageal reflux disease without esophagitis; I25.10 Atherosclerotic heart disease of native coronary artery without angina pectoris; J18.8 Other pneumonia, unspecified organism; E11.65 Type 2 diabetes mellitus with hyperglycemia; R26.89 Other abnormalities of gait and mobility; Z85.118 Personal history of other malignant neoplasm of bronchus and lung; E87.6 Hypokalemia; L89.152 Pressure ulcer of sacral region, stage 2; R05.8 Other specified cough; Z78.1 Physical restraint status; I11.0 Hypertensive heart disease with heart failure; D64.89 Other specified anemias; Z85.841 Personal history of malignant neoplasm of brain; R79.1 Abnormal coagulation profile; Z20.822 Contact with and (suspected) exposure to COVID-19; K59.09 Other constipation; J96.90 Respiratory failure, unspecified, unspecified whether with hypoxia or hypercapnia; R94.31 Abnormal electrocardiogram [ECG] [EKG]